=== PATIENT | male | born 1940 | race Caucasian/White ===

== ENCOUNTER 2022-07-28 17:47 | Inpatient (IN) | payer MEDICARE, SELFPAY ==
[2022-07-28 18:03] VITALS: BP 133/68; PULSE 88; RESP 18; TEMP 36.4; O2SAT 97; BMI 24.2
--- NOTE | 2022-07-28 18:35 | XRR_ITS ---
PROCEDURE INFORMATION: Exam: XR Abdomen Exam date and time: 07/28/2022 6:52 PM Age: 82 years old Clinical indication: Prior surgery; Surgery date: 6+ months; Surgery type: Colon , bladder surgery; Patient HX: Stool issues; Impaction TECHNIQUE: Imaging protocol: Radiologic exam of the abdomen. Views: Frontal supine view of the abdomen. 1 View. COMPARISON: CT abdomen pelvis w con* [id number] 10/26/2016 9:34 AM FINDINGS: Gastrointestinal tract: There is minimal stool in the descending colon. No stool is seen in the rectum. There is a gas distended short segment of small bowel in the right lower quadrant associated with bowel sutures. No visibly dilated small bowel is seen elsewhere. Intraperitoneal space: No gross free air. Bones/joints: There is mild degenerative disease in the lumbar spine. XR/XR KUB [id number] IMPRESSION: Minimal stool in the descending colon. None is visible in the rectum.
[2022-07-28 19:50] LABS: Basophils # 0.1 10^3/uL (0.0-0.1); Basophils % 0.5 %; Eosinophils # 0.3 10^3/uL (0.0-0.8); Eosinophils % 1.4 %; Hematocrit 41.2 % (42.0-52.0); Hemoglobin 13.4 g/dL (11.7-16.6); Lymphocytes # 0.3 10^3/uL (0.8-4.8); Lymphocytes % 1.8 %; Mean Corpuscular HGB Conc 32.5 g/dL (30.0-36.0); Mean Corpuscular Hemoglobin 33.1 pg (28.0-34.0); Mean Corpuscular Volume 101.7 fl (80-94); Mean Platelet Volume 9.8 fL (7.4-10.4); Monocytes % 10.2 %; Neutrophils # 16.31 10^3/uL (1.8-7.7); Nucleated Red Blood Cells % 0 %; Platelet Count 233 10^3/cmm (130-400); Red Blood Count 4.05 10^6/uL (4.1-5.3); Red Cell Distribution Width 17.2 % (12.1-15.1); White Blood Count 19.4 10^3/uL (4.0-10.0)
[2022-07-28 20:10] LABS: Alanine Aminotransferase 10 U/L (0-41); Albumin Level 3.5 g/dL (3.5-5.2); Alkaline Phosphatase 155 U/L (40-130); Anion Gap 17.5 (5-19); Aspartate Amino Transferase 23 U/L (0-40); Blood Urea Nitrogen 21 mg/dL (8-23); Calcium 9.2 mg/dL (8.5-10.5); Carbon Dioxide 31 mmol/L (22-29); Chloride 94 mmol/L (98-107); Globulin 3.4 g/dL (1.3-4.6); Glucose 185 mg/dL (65-115); Osmolality Calculated 294 mOsm/kg (285-295); Potassium 4.5 mmol/L (3.5-5.1); Sodium 138 mmol/L (136-145); Total Bilirubin 0.6 mg/dL (0.15-1.2); Total Protein 6.9 g/dL (6.6-8.7)
--- NOTE | 2022-07-28 20:11 | CTR_ITS ---
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 Radiation optimization: All CT scans at this facility use at least one of these dose optimization techniques: automated exposure control; mA and/or kV adjustment per patient size (includes targeted exams where dose is matched to clinical indication); or iterative reconstruction. Contrast material: OMNI 350; Contrast volume: 75 ml; Contrast route: INTRAVENOUS (IV); COMPARISON: CR (ABDOMEN, ) 07/28/2022 6:52 PM RADIATION DOSE METRICS: Total DLP (mGy-cm): 480.99 FINDINGS: Lungs: There is extensive subpleural honeycombing in the lung bases. Liver: The liver is normal. Gallbladder and bile ducts: Cholelithiasis is present. There is no sign of cholecystitis. There is no intrahepatic or extrahepatic bile duct dilation. Pancreas: There is mild atrophy of the pancreas. Spleen: The spleen is unremarkable. Adrenal glands: The adrenal glands are unremarkable. Kidneys and ureters: There is mild atrophy of both kidneys. There are simple cysts in both kidneys. There is no hydronephrosis or stones. Unremarkable right lower quadrant ileal urinary diversion. The ileal loop is nondistended. The ostomy site is unremarkable. Stomach and bowel: There is ill definition and marked thickening of the rectal wall. There is perirectal edema. There is no edema in the perianal fat. There is pancolonic diverticulosis. There is minimal pericolonic edema associated with the distal descending and proximal sigmoid colon. Question diverticular inflammation. No definite thick-walled diverticulum is seen. There is no significant descending colonic wall thickening. The stomach is decompressed, preventing meaningful evaluation of wall thickness. There is focally distended small bowel at an anastomotic site in the right upper quadrant. Small bowel is otherwise normal. No sign of obstruction. Appendix: The appendix is not visible. Intraperitoneal space: There is no free air or significant intraperitoneal free fluid. Vasculature: There is severe aortic atherosclerotic disease. The portal, splenic and superior mesenteric veins are patent. Lymph nodes: There is no lymphadenopathy in the retroperitoneum, mesentery, pelvis or inguinal regions. Urinary bladder: The bladder is absent. Reproductive: Prostate is absent. Bones/joints: Bones are unremarkable. Soft tissues: Unremarkable right lower quadrant ileal urinary diversion. No peristomal hernia. There is a small fat containing left inguinal hernia. CT/CT abdomen pelvis w con* [id number] IMPRESSION: 1. Proctitis. 2. Pancolonic diverticulosis with subtle pericolonic edema in the distal descending and proximal sigmoid colon. Possible mild diverticulitis. No sign of perforation. 3. Fibrotic interstitial lung disease visible in the lung bases is moderately progressive since 10/26/2016. 4. Incidental findings above. COMMENTS: Consistent with the [employer] [place]'s Incidental Findings Committee white paper (J Am Mark Radiol 2018): Any incidental renal lesion less than 1 cm or classified as too small to characterize, or any incidental cystic renal lesion characterized as simple-appearing, is likely benign. No follow-up imaging is recommended for these lesions per consensus recommendations based on imaging criteria.
--- NOTE | 2022-07-28 20:11 | W.ED.NAVMDI ---
Documented by User: RAUL Alexander 07/29/22 01:03 HPI - Nausea/Vomiting/Diarrhea General: Chief complaint: Nausea/Vomiting/Diarrhea Stated complaint: hasn't eaten 6xdays, bowel issues Time Seen by Provider: 07/28/22 19:31 Source: patient and family Mode of arrival: wheelchair Limitations: no limitations History of Present Illness: Patient is an 82-year-old male who presents to ED today along with family for concerns of not eating, weakness, rectal pain/sores, and fecal incontinence. Patient states several days ago he was seen by his primary care provider and diagnosed with constipation. He was placed on a bowel regimen to help alleviate that. They also placed him on antibiotics because my white count was high and gave him a cream for his rectum. He states since then he has been having diarrhea and fecal incontinence. Family states he has not eaten in 6 days. He states he is normally ambulatory and active but has not been over the past two weeks. Patient is undergoing chemotherapy for lymphoma-these are done in [place], [place]. He has a history of bladder cancer. Patient and family are not the best historians when it comes to patient's PMH. Current medications include torsemide, allopurinol, atorvastatin, levothyroxine, spironolactone, clopidogrel, levemir, isosorbide. MD elicited complaint: diarrhea and other (weakness) Onset (ago): day(s) Description of diarrhea: watery Associated nausea: No Associated abdominal pain: Yes Location of pain: Diffuse Pain consistency: constant Severity: mild Relieving factors: none Associated symtoms: Reports fatigue; Denies chest pain, dizziness, headache(s) or nausea Review of Systems Const: Reports: fatigue; Denies: fever(s), chills or body aches Card: Denies: chest pain Resp: Denies: dyspnea GI: Reports: abdominal pain, diarrhea and change in bowel habits; Denies: nausea, vomiting, hematochezia or melena : Denies: flank pain Musc: Denies: neck pain, back pain, extremity pain or joint pain Skin/Breast: Denies: rash Neuro: Reports: other (generalized weakness); Denies: headache(s), lack of coordination, dizziness, confusion or difficulty communicating thoughts PFS ED PFSH: Medical History (Updated 07/29/22 @ 01:03 by RAUL Alexander) History of bladder cancer History of CAD (coronary artery disease) History of CVA (cerebrovascular accident) History of follicular lymphoma History of hyperlipidemia History of hypertension History of type 2 diabetes mellitus Surgical History (Updated 07/29/22 @ 00:23 by Johan Virk MD) History of heart artery stent History of urostomy Family History (Updated 07/29/22 @ 00:23 by Johan Virk MD) Father CAD (coronary artery disease) Mother Medication overdose Social History (Updated 07/29/22 @ 00:24 by Johan Virk MD) Smoking and tobacco status: never smoked Alcohol intake: never Substance/Drug Use: never Physical Exam Const: COMMON NORMALS: no acute distress, average body habitus, patient oriented x3, no limitations, alert and well nourished GENERAL APPEARANCE: cooperative ORIENTATION/CONSCIOUSNESS: Yes awake, Yes oriented to person, Yes oriented to place and Yes oriented to time HENMT: COMMON NORMALS: normocephalic and atraumatic HEAD & SCALP: normal to inspection, normocephalic and atraumatic Resp: COMMON NORMALS: normal respiratory effort and clear to auscultation bilaterally AUSCULTATION: clear to auscultation bilaterally Cardio: COMMON NORMALS: regular rate and regular rhythm RATE: regular rate RHYTHM: regular rhythm GI: COMMON NORMALS: Normal to inspection, nondistended, normoactive bowel sounds present, Soft to palpation, non-tender, No hepatosplenomegaly present and no masses INSPECTION: Yes normal to inspection and Yes other (urostomy pouch looks normal) AUSCULTATION: Yes normoactive bowel sounds PALPATION: Yes Soft to palpation and Yes No hepatosplenomegaly present OTHER: stage II sacral ulcer developing; he has small fissures/raw appearing skin around anus; no fecal leakage : COMMON NORMALS: Yes no CVA tenderness BLADDER/KIDNEY EXAM: Yes no CVA tenderness Back/Pelvis: COMMON NORMALS: no CVA tenderness Extremity: COMMON NORMALS: normal to inspection GENERAL: Yes normal exam except as noted Neuro: ELYSIA COMA SCALE: document GCS findings [place] coma scale eye opening: Spontaneous [place] coma scale verbal response: Orientated [place] coma scale motor response: Obey commands [place] coma scale total score: 15 COMMON NORMALS: patient oriented x3, CN's II-XII intact bilaterally, moves all extremities, no focal motor deficits and no sensory deficits noted SENSORIUM/ORIENTATION: Yes alert, Yes oriented to person, Yes oriented to place and Yes oriented to time Skin: COMMON NORMALS: no rashes or lesions noted GENERAL SKIN EXAM: no rashes or lesions noted Course Consultations: Consultation #1: Dr. Virk-accepts admission Vital Signs: Vital signs: Vital Signs Temperature 97.6 F 07/28/22 18:03 Pulse Rate 100 07/29/22 00:39 Respiratory Rate 12 07/29/22 00:39 Blood Pressure 145/69 07/29/22 00:39 Pulse Oximetry 99 07/29/22 00:39 Oxygen Delivery Me thod 07/29/22 00:39 Oxygen Flow Rate 2 07/29/22 00:39 MDM - Nausea/Vomiting/Diarrhea Medical Decision Making Patient is an 82-year-old male here for complaints of generalized weakness, decreased appetite, and rectal pain/diarrhea. Patient is currently undergoing chemotherapy for follicular lymphoma. CT scan showing proctitis and a small area of possible mild diverticulitis. Patient and family are requesting admission due to weakness. Patient is also complaining of nausea and vomiting and are concerned that he would not be able to hold down oral medications at home. Spoke to Dr. Oneill in regards to patient who agrees with decision to admit. Spoke to Dr. Virk who is graciously willing to admit patient. Lab Data 07/28/22 19:37 07/28/22 19:37 Radiology Impressions KUB X-Ray 07/28/22 18:35 IMPRESSION: Minimal stool in the descending colon. None is visible in the rectum. Abdomen/Pelvis CT 07/28/22 20:11 IMPRESSION: 1. Proctitis. 2. Pancolonic diverticulosis with subtle pericolonic edema in the distal descending and proximal sigmoid colon. Possible mild diverticulitis. No sign of perforation. 3. Fibrotic interstitial lung disease visible in the lung bases is moderately progressive since 10/26/2016. 4. Incidental findings above. COMMENTS: Consistent with the [place] [employer]'s Incidental Findings Committee white paper (J Am Mark Radiol 2018): Any incidental renal lesion less than 1 cm or classified as too small to characterize, or any incidental cystic renal lesion characterized as simple-appearing, is likely benign. No follow-up imaging is recommended for these lesions per consensus recommendations based on imaging criteria. Chest X-Ray 07/28/22 22:58 IMPRESSION: Progressive reticular opacity in the lower lungs since 03/05/2018 suggests chronic interstitial lung disease. No acute pulmonary abnormality. Laboratory Results WBC 19.4 10^3/uL (4.0-10.0) H 07/28/22 19:37 RBC 4.05 10^6/uL (4.1-5.3) L 07/28/22 19:37 Hgb 13.4 g/dL (11.7-16.6) 07/28/22 19:37 Hct 41.2 % (42.0-52.0) L 07/28/22 19:37 MCV 101.7 fl (80-94) H 07/28/22 19:37 MCH 33.1 pg (28.0-34.0) 07/28/22 19:37 MCHC 32.5 g/dL (30.0-36.0) 07/28/22 19:37 RDW 17.2 % (12.1-15.1) H 07/28/22 19:37 Plt Count 233 10^3/cmm (130-400) 07/28/22 19:37 MPV 9.8 fL (7.4-10.4) 07/28/22 19:37 Neut % (Auto) 84.0 % 07/28/22 19:37 Lymph % (Auto) 1.8 % 07/28/22 19:37 [place] % (Auto) 10.2 % 07/28/22 19:37 Eos % (Auto) 1.4 % 07/28/22 19:37 Baso % (Auto) 0.5 % 07/28/22 19:37 Neut # (Auto) 16.31 10^3/uL (1.8-7.7) H 07/28/22 19:37 Lymph # (Auto) 0.3 10^3/uL (0.8-4.8) L 07/28/22 19:37 [place] # (Auto) 2.0 10^3/uL (0.2-0.9) H 07/28/22 19:37 Eos # (Auto) 0.3 10^3/uL (0.0-0.8) 07/28/22 19:37 Baso # (Auto) 0.1 10^3/uL (0.0-0.1) 07/28/22 19:37 Nucleated RBC % (auto) 0 % 07/28/22 19:37 Nucleated RBCs # 0.0 /100WBC 07/28/22 19:37 Sodium 138 mmol/L (136-145) 07/28/22 19:37 Potassium 4.5 mmol/L (3.5-5.1) 07/28/22 19:37 Chloride 94 mmol/L (98-107) L 07/28/22 19:37 Carbon Dioxide 31 mmol/L (22-29) H 07/28/22 19:37 Anion Gap 17.5 (5-19) 07/28/22 19:37 BUN 21 mg/dL (8-23) 07/28/22 19:37 Creatinine 1.4 mg/dL (0.7-1.2) H 07/28/22 19:37 GFR Calculation Not Reportable 07/28/22 19:37 Glucose 185 mg/dL (65-115) H 07/28/22 19:37 Calculated Osmolality 294 mOsm/kg (285-295) 07/28/22 19:37 Lactic Acid 1.5 mmol/L (0.5-2.2) 07/28/22 19:37 Uric Acid 5.6 mg/dL (3.4-7.0) 07/28/22 23:40 Calcium 9.2 mg/dL (8.5-10.5) 07/28/22 19:37 Phosphorus 2.9 mg/dL (2.5-4.5) 07/28/22 23:40 Magnesium 1.7 mg/dL (1.7-2.3) 07/28/22 23:40 Total Bilirubin 0.6 mg/dL (0.15-1.2) 07/28/22 19:37 AST 23 U/L (0-40) 07/28/22 19:37 ALT 10 U/L (0-41) 07/28/22 19:37 Alkaline Phosphatase 155 U/L (40-130) H 07/28/22 19:37 C-Reactive Protein 24.1 mg/L (0.0-4.9) H 07/28/22 23:40 Total Protein 6.9 g/dL (6.6-8.7) 07/28/22 19:37 Albumin 3.5 g/dL (3.5-5.2) 07/28/22 19:37 Globulin 3.4 g/dL (1.3-4.6) 07/28/22 19:37 Procalcitonin 1.41 ng/mL (0-0.5) H 07/28/22 23:40 Free T4 1.50 ng/dL (0.82-1.77) 07/28/22 23:40 Free T3 2.2 PG/ML (2.0-4.4) 07/28/22 23:40 Urine Color Yellow (Yellow) 07/28/22 19:56 Urine Appearance Hazy (CLEAR) A 07/28/22 19:56 Urine pH 9 (5-7) H 07/28/22 19:56 Ur Specific [place] 1.010 (1.005-1.030) 07/28/22 19:56 Urine Protein Neg (Negative) 07/28/22 19:56 Urine Glucose (UA) Norm (Normal) 07/28/22 19:56 Urine Ketones Negative (Negative) 07/28/22 19:56 Urine Blood 2+ (Negative) H 07/28/22 19:56 Urine Nitrate Negative (Negative) 07/28/22 19:56 Urine Bilirubin Neg (Negative) 07/28/22 19:56 Prot Sulfosalicylic Acd Negative (Negative) 07/28/22 19:56 Urine Urobilinogen Neg mg/dL (Negative) 07/28/22 19:56 Ur Leukocyte Esterase Trace (Negative) H 07/28/22 19:56 Urine RBC 5-10 /hpf (0-2) H 07/28/22 19:56 Urine WBC 5-10 /hpf (0-5) H 07/28/22 19:56 Ur Squamous Epith Cells 0-4 /hpf (0-5) H 07/28/22 19:56 Triple Phos Crystals 40-55 /hpf H 07/28/22 19:56 Amorphous Sediment 2+ /hpf 07/28/22 19:56 Urine Bacteria 3+ /hpf (NONE) H 07/28/22 19:56 Urine Mucus Trace /hpf 07/28/22 19:56 Discharge Plan Discharge Patient Disposition: Admitted As Inpatient Admit Provider: Johan Virk Clinical Impression: Proctitis, Weakness, Follicular lymphoma Condition: Stable Coding Level of Care Code ED Velvet Weaver for Chg Fwd Exam Comprehensive Documented by User: Sung Oneill DO 07/29/22 01:57 HPI - Nausea/Vomiting/Diarrhea General: Chief complaint: Nausea/Vomiting/Diarrhea Stated complaint: hasn't eaten 6xdays, bowel issues Time Seen by Provider: 07/28/22 19:31 PFSH ED PFSH: Medical History (Updated 07/29/22 @ 01:03 by RAUL Alexander) History of bladder cancer History of CAD (coronary artery disease) History of CVA (cerebrovascular accident) History of follicular lymphoma History of hyperlipidemia History of hypertension History of type 2 diabetes mellitus Surgical History (Updated 07/29/22 @ 00:23 by Johan Virk MD) History of heart artery stent History of urostomy Family History (Updated 07/29/22 @ 00:23 by Johan Virk MD) Father CAD (coronary artery disease) Mother Medication overdose Social History (Updated 07/29/22 @ 00:24 by Johan Virk MD) Smoking and tobacco status: never smoked Alcohol intake: never Substance/Drug Use: never Physical Exam Neuro: ELYSIA COMA SCALE: document GCS findings [place] coma scale total score: 15 Course Vital Signs: Vital signs: Vital Signs Temperature 97.6 F 07/28/22 18:03 Pulse Rate 100 07/29/22 00:39 Respiratory Rate 12 07/29/22 00:39 Blood Pressure 145/69 07/29/22 00:39 Pulse Oximetry 99 07/29/22 00:39 Oxygen Delivery Me thod 07/29/22 00:39 Oxygen Flow Rate 2 07/29/22 00:39 MDM - Nausea/Vomiting/Diarrhea Medical Decision Making Patient is an 82-year-old male here for complaints of generalized weakness, decreased appetite, and rectal pain/diarrhea. Patient is currently undergoing chemotherapy for follicular lymphoma. CT scan showing proctitis and a small area of possible mild diverticulitis. Patient and family are requesting admission due to weakness. Patient is also complaining of nausea and vomiting and are concerned that he would not be able to hold down oral medications at home. Spoke to Dr. Oneill in regards to patient who agrees with decision to admit. Spoke to Dr. Virk who is graciously willing to admit patient. This patient was originally seen by Mrs. Moe?NATALEE Decker.? I agree with her history, evaluation, and treatment. Lab Data 07/28/22 19:37 07/28/22 19:37 Radiology Impressions KUB X-Ray 07/28/22 18:35 IMPRESSION: Minimal stool in the descending colon. None is visible in the rectum. Abdomen/Pelvis CT 07/28/22 20:11 IMPRESSION: 1. Proctitis. 2. Pancolonic diverticulosis with subtle pericolonic edema in the distal descending and proximal sigmoid colon. Possible mild diverticulitis. No sign of perforation. 3. Fibrotic interstitial lung disease visible in the lung bases is moderately progressive since 10/26/2016. 4. Incidental findings above. COMMENTS: Consistent with the [place] [employer]'s Incidental Findings Committee white paper (J Am Mark Radiol 2018): Any incidental renal lesion less than 1 cm or classified as too small to characterize, or any incidental cystic renal lesion characterized as simple-appearing, is likely benign. No follow-up imaging is recommended for these lesions per consensus recommendations based on imaging criteria. Chest X-Ray 07/28/22 22:58
[2022-07-28 20:21] LABS: Creatinine Clr Calc Pharmacy 36.3864
[2022-07-28 20:23] LABS: Blood Urine 2+ (Negative); Glucose Urine UA Norm (Normal); Ketones Urine Negative (Negative); Protein Urine Neg (Negative); Urine Appearance Hazy (CLEAR); Urine Color Yellow (Yellow); pH Urine 9 (5-7)
[2022-07-28 20:24] LABS: Add Urine Microscopic? YES; Bilirubin Urine Neg (Negative); Leukocyte Esterase Urine Trace (Negative); Nitrate Urine Negative (Negative); Sulfosalicylic Acid Urine Negative (Negative); Urobilinogen Urine Neg (Negative)
[2022-07-28 20:29] LABS: Amorphous Sediment Urine 2+ /hpf; Bacteria Urine 3+ /hpf; Mucus Urine TRACE /hpf; Squamous Epithelial Cell Urine 0-4 /hpf (0-5); Triple Phosphate Crystal Urine 40-55 /hpf
[2022-07-28 20:30] VITALS: BP 140/87; PULSE 98; RESP 14; O2SAT 99
[2022-07-28 20:30] LABS: Add Urine Culture? Yes
[2022-07-28] MEDS: iohexol 350 mg/mL 500 mL Btl (per mL) IV (21:01)
[2022-07-28 21:15] VITALS: BP 145/58; PULSE 113; RESP 14; O2SAT 94
--- NOTE | 2022-07-28 21:16 | ECG_ITS ---
[facility] Test Date: 2022-07-28 Pat Name: Ehsan Garcias Department: Room: Gender: Male Conventions Reservationist: : 1940 Requested By: Elba Moe Order Number: [id number] Gomez MD: Unique Jones M.D. Measurements Intervals [place] Rate: 104 P: 54 AR: 148 QRS: -80 QRSD: 123 T: 47 QT: 410 QTc: 541 Interpretive Statements SINUS TACHYCARDIA WITH OCCASIONAL VENTRICULAR PREMATURE COMPLEXES WITH OCCASIONAL SUPRAVENTRICULAR PREMATURE COMPLEXES RIGHT BUNDLE BRANCH BLOCK [120+ ms QRS DURATION, UPRIGHT V1, 40+ ms S IN I/aVL/V4/V5/V6] LEFT ANTERIOR FASCICULAR BLOCK [QRS AXIS <= -45, QR IN I, RS IN II] Compared to ECG 06/13/2016 12:37:57 Right bundle-branch block now present Left anterior fascicular block now present Sinus bradycardia no longer present Electronically Signed On 07-29-2022 9:11:46 RIVET PASSER by Unique Jones M.D. [id number]
[2022-07-28 22:00] VITALS: BP 149/83; PULSE 110; RESP 14; O2SAT 95
[2022-07-28] MEDS: metroNIDAZOLE IV 500 MG/100 ML PREMIX 100 MG IV (22:13)
[2022-07-28 22:15] LABS: Lactic Sepsis W/Reflex 1.5 mmol/L (0.5-2.2)
[2022-07-28 22:30] VITALS: BP 124/67; PULSE 96; RESP 14; O2SAT 90
[2022-07-28] MEDS: morphine 4 mg/mL SDV 1 mL IVP (22:42)
[2022-07-28] MEDS: ondansetron 2 mg/ML SDV 2 mL 4 MG IVP (22:46)
--- NOTE | 2022-07-28 22:58 | XRR_ITS ---
PROCEDURE INFORMATION: Exam: XR Chest Exam date and time: 07/28/2022 11:41 PM Age: 82 years old Clinical indication: Cough; Additional info: Cough, weakness TECHNIQUE: Imaging protocol: Radiologic exam of the chest. Views: 1 view. COMPARISON: CR XR chest 2V* [id number] 03/05/2018 12:31 PM FINDINGS: Tubes, catheters and devices: There is a right chest port with the line tip appropriately positioned in the lower SVC near the cavoatrial junction. Lungs: Fine reticular opacity in the lower lungs bilaterally is mildly progressive since 03/05/2018. No focal consolidation. Pleural spaces: There is no pleural effusion or pneumothorax. Heart/Mediastinum: Cardiomediastinal contours are unremarkable. Bones/joints: Sternal wires are present. There is no displacement to suggest sternal dehiscence. No acute fracture. Soft tissues: Right axillary surgical clips. XR/XR chest 1V portable [id number] IMPRESSION: Progressive reticular opacity in the lower lungs since 03/05/2018 suggests chronic interstitial lung disease. No acute pulmonary abnormality.
[2022-07-28 23:00] VITALS: BP 123/73; PULSE 101; RESP 14; O2SAT 91
[2022-07-28] MEDS: ciprofloxacin 400 MG/200 ML PREMIX 200 MG IV (23:29)
[2022-07-29] VITALS (12 sets, daily range): BP systolic 119–154; BP diastolic 63–75; PULSE 64–100; RESP 12–22; TEMP 36.5–37; O2SAT 88–99
[2022-07-29 00:12] LABS: C Reactive Protein 24.1 mg/L (0.0-4.9)
--- NOTE | 2022-07-29 00:15 | PM.HP ---
Providers/Chief Complaint Primary Care Provider: Shante Montoya Chief Complaint: hasn't eaten 6xdays, bowel issues History of Present Illness Ehsan Garcias is a 82 year old male with a past medical history of follicular lymphoma, on cycle 3 of chemotherapy, last taken July 20 in [facility], history of CAD status post stenting on Plavix, history of type 2 diabetes mellitus on insulin Levemir, hypertension, hyperlipidemia, history of bladder cancer status post urostomy, history of nephrolithiasis, GERD, history of TIA who presents to [facility] due to weakness, fatigue, poor appetite, diarrhea. Patient tells me that since his chemotherapy on the , he has been feeling weak fatigued and tired he has not had an appetite over 6 days, his has not eaten much, does have nausea, no vomiting. His symptoms started off as constipation, he saw his primary care and they put him on a bowel regimen, and amoxicillin for irritation around the rectum. They felt that he was constipated, he had impaction, he tells me that since then he has had significant diarrhea even though he is stopped all laxatives. He has profuse watery diarrhea, no bloody or black stools, he is normally ambulates in a walker, for the last 2 days has not been able to ambulate due to generalized weakness. Review of Systems Const: Denies: fever(s) or chills Eyes: Denies: change in vision ENMT: Denies: nasal congestion Card: Denies: chest pain Resp: Denies: dyspnea, productive cough, non-productive cough or wheezing GI: Denies: hematemesis, hematochezia or melena : Denies: flank pain Musc: Denies: neck pain or back pain Skin/Breast: Denies: rash Neuro: Denies: headache(s) or dizziness PFSH Acute PFSH: Medical History (Updated 07/29/22 @ 00:26 by Johan Virk MD) History of bladder cancer History of CAD (coronary artery disease) History of CVA (cerebrovascular accident) History of follicular lymphoma History of hyperlipidemia History of hypertension History of type 2 diabetes mellitus Surgical History (Updated 07/29/22 @ 00:23 by Johan Virk MD) History of heart artery stent History of urostomy Family History (Updated 07/29/22 @ 00:23 by Johan Virk MD) Father CAD (coronary artery disease) Mother Medication overdose Social History (Updated 07/29/22 @ 00:24 by Johan Virk MD) Smoking and tobacco status: never smoked Alcohol intake: never Substance/Drug Use: never Vitals/I&O/Wt Last Vital Signs Temp 97.6 F 07/28/22 18:03 Pulse 98 07/29/22 00:00 Resp 14 07/29/22 00:00 BP 119/64 07/29/22 00:00 Pulse Ox 91 07/29/22 00:00 07/28/22 07/28/22 07/29/22 14:59 22:59 06:59 Intake Total 100 / 100 Balance 100 / 100 Weight last 48 hrs Weight 68.039 kg Physical Exam Const: COMMON NORMALS: no acute distress and patient oriented x3 HENMT: COMMON NORMALS: normocephalic HEAD & SCALP: normocephalic Eye: COMMON NORMALS: Equal, round and reactive pupils present and EOMs intact bilaterally Neck/C-Spine: COMMON NORMALS: full ROM and no lymphadenopathy Lymph: LYMPHATIC: no lymphadenopathy noted Resp: COMMON NORMALS: normal respiratory effort, No retractions, No use of accessory muscles and clear to auscultation bilaterally AUSCULTATION: clear to auscultation bilaterally Cardio: COMMON NORMALS: regular rate, regular rhythm, S1 normal heart sound present and S2 normal heart sound present RATE: regular rate RHYTHM: regular rhythm HEART SOUNDS: S1 normal heart sound present and S2 normal heart sound present GI: COMMON NORMALS: Normal to inspection, nondistended, normoactive bowel sounds present, Soft to palpation, non-tender, no masses and no bruits OTHER: Urostomy in place Extremity: COMMON NORMALS: no pedal edema Neuro: COMMON NORMALS: patient oriented x3, CN's II-XII intact bilaterally, moves all extremities and no focal motor deficits Psych: COMMON NORMALS: mental status grossly normal Data 07/28/22 19:37 07/28/22 19:37 Micro: Microbiology 07/28/22 23:40 Blood Culture - Preliminary Blood SPECIMEN COLLECTED 07/28/22 23:43 Blood Culture - Preliminary Blood SPECIMEN COLLECTED A&P Assessment and plan (1) Protein calorie malnutrition: (2) Physical deconditioning: (3) Goals of care, counseling/discussion: (4) Proctitis: (5) FREEMAN (acute kidney injury): (6) Dehydration: (7) Chemotherapy induced diarrhea: (8) History of follicular lymphoma: (9) History of hyperlipidemia: (10) History of hypertension: (11) History of bladder cancer: (12) History of type 2 diabetes mellitus: (13) History of CAD (coronary artery disease): (14) Diverticulitis: (15) Colitis: Plan Diarrhea -CT scan showing evidence of proctitis, -Also pericolonic edema with colitis -Also evidence of possible diverticulitis -Is on chemotherapy Plan -Started on Cipro and Flagyl -IV fluids -Magnesium and phosphorus monitor other electrolytes -Could be chemotherapy-induced diarrhea we will consider antidiarrheal medications -The other, concern is infectious diarrhea especially is on chemotherapy C. difficile, CMV, Entamoeba -We will monitor stool studies -Monitor clinical status -DNR/DNI -Lovenox for DVT prophylaxis Protein calorie malnutrition, has not had an appetite and 6 days, start Remeron 7.5 mg at bedtime to stimulate appetite IV fluids Complaints of dysphagia, placed on clear liquid diet, will have speech therapy see patient, advance diet as tolerated, protein shakes twice daily FREEMAN, dehydration IV fluids CAD continue Plavix History of follicular lymphoma, will obtain records from [place] History of urostomy, history of bladder removal, for transitional bladder cell carcinoma Protein calorie malnutrition, deconditioning Hypothyroidism check TSH, free T3, free T4, patient is not sure his levothyroxine dose well to call pharmacy in a.m. Goals of care discussion, patient wants to be DNR/DNI Attestations Medical Necessity Statement*: Patient requires hospitalization, inpatient, greater than 2 midnights, for colitis, proctitis, diverticulitis, dehydration, chemotherapy-induced diarrhea, leukocytosis, dehydration, FREEMAN Coding Level of Care Code Acute Code for Chg Fwd Diagnoses Protein calorie malnutrition E46 Physical deconditioning R53.81 Goals of care, counseling/discussion Z71.89 Proctitis K62.89 FREEMAN (acute kidney injury) N17.9 Dehydration E86.0 Chemotherapy induced diarrhea K52.1; T45.1X5A History of follicular lymphoma Z85.72 History of hyperlipidemia Z86.39 History of hypertension Z86.79 History of bladder cancer Z85.51 History of type 2 diabetes mellitus Z86.39 History of CAD (coronary artery disease) Z86.79 Diverticulitis K57.92 Colitis K52.9
[2022-07-29 00:18] LABS: Procalcitonin 1.41 ng/mL (0-0.5)
--- NOTE | 2022-07-29 00:25 | PC.NURSE ---
Pt saturation continually dropping to 88, placed pt on 2L NC, O2 up to 97
[2022-07-29 01:07] LABS: Magnesium 1.7 mg/dL (1.7-2.3); Phosphorus 2.9 mg/dL (2.5-4.5); T3 Free 2.2 PG/ML (2.0-4.4); Uric Acid 5.6 mg/dL (3.4-7.0)
[2022-07-29 02:55] LABS: Thyroid Stimulating Hormone 2.35 uIU/mL (0.27-4.20)
[2022-07-29] MEDS: mirtazapine 15 mg Tablet 7.5 MG PO (03:08)
[2022-07-29] MEDS: enoxaparin 40 mg/0.4 mL Syringe SUBCUT (03:09)
[2022-07-29] MEDS: pantoprazole 40 mg SDV IVP (03:09)
[2022-07-29] MEDS: dextrose 5%-sod chloride 0.9% 1,000 ML 125 ML IV ×3 (03:12→21:04)
[2022-07-29] MEDS: metroNIDAZOLE IV 500 MG/100 ML PREMIX 100 MG IV ×3 (05:21→22:44)
[2022-07-29 06:47] LABS: Glucose Point of Care 159 mg/dL (70-110)
--- NOTE | 2022-07-29 06:47 | PC.NURSE ---
Medication list from [facility] from 05/30/22 with patient as well as 9 medication bottles and an insulin pen. These were placed in the Pyxis. List does not match the medications patient has with him. Medications have been listed as unconfirmed on med rec. Patient states that his daughter will know which medications he is on. Attempt to call daughter Talisha who did not answer. Home medications will need to be confirmed.
[2022-07-29] MEDS: cholecalciferol (vitamin D3) 1,000 unit Tablet 1000 UNIT PO (08:50)
[2022-07-29] MEDS: aspirin 81 mg EC Tablet 162 MG PO (08:50)
[2022-07-29] MEDS: metoprolol succinate ER (24 HR) 50 mg Tablet PO (08:50)
[2022-07-29] MEDS: folic acid 1 mg Tablet PO (08:50)
[2022-07-29] MEDS: clopidogrel 75 mg Tablet PO (08:50)
[2022-07-29] MEDS: allopurinol 100 mg Tablet PO (08:50)
[2022-07-29] MEDS: cyanocobalamin 1,000 mcg Tablet 500 MCG PO (08:51)
[2022-07-29] MEDS: insulin lispro 100 unit/1 mL SUBCUT ×2 (08:52→17:54)
[2022-07-29 12:07] LABS: Glucose Point of Care 138 mg/dL (70-110)
[2022-07-29] MEDS: ondansetron 2 mg/ML SDV 2 mL 4 MG IVP (13:09)
--- NOTE | 2022-07-29 15:35 | P.PN_ITS ---
Subjective Subjective: Today he is feeling slightly better. Denies abdominal pain. Still having diarrhea. Just gave a stool sample. No vomiting. Vitals/I&O/Wt Last Vital Signs Temp 97.7 F 07/29/22 12:00 Pulse 64 07/29/22 12:00 Resp 18 07/29/22 12:00 BP 138/68 07/29/22 12:00 Pulse Ox 95 07/29/22 12:00 O2 Del Method 07/29/22 12:00 O2 Flow Rate 2 07/29/22 00:39 07/29/22 07/29/22 07/29/22 06:59 14:59 22:59 Intake Total 640 / 640 1340 / 1340 Output Total 350 / 350 400 / 400 Balance 290 / 290 940 / 940 Weight last 48 hrs Weight 68.039 kg Physical Exam Const: COMMON NORMALS: patient oriented x3 and alert GENERAL APPEARANCE: cooperative ORIENTATION/CONSCIOUSNESS: Yes awake HENMT: COMMON NORMALS: oropharynx normal Neck/C-Spine: COMMON NORMALS: no JVD Resp: COMMON NORMALS: normal respiratory effort and clear to auscultation bilaterally AUSCULTATION: clear to auscultation bilaterally Cardio: COMMON NORMALS: no JVD, regular rhythm, S1 normal heart sound present, S2 normal heart sound present and No murmurs present (Cardio) RHYTHM: regular rhythm HEART SOUNDS: S1 normal heart sound present and S2 normal heart sound present GI: COMMON NORMALS: Normal to inspection, nondistended, normoactive bowel sounds present, Soft to palpation and non-tender PALPATION: Yes Soft to palpation Extremity: COMMON NORMALS: no joint enlargement and no pedal edema Neuro: COMMON NORMALS: patient oriented x3 and moves all extremities SENSORIUM/ORIENTATION: Yes alert Skin: COMMON NORMALS: no rashes or lesions noted GENERAL SKIN EXAM: no rashes or lesions noted Data 07/28/22 19:37 07/28/22 19:37 Micro: Microbiology 07/29/22 12:30 Stool Lactoferrin - Final Stool Occult Blood (FIT) - Final 07/28/22 23:40 Blood Culture - Preliminary Blood SPECIMEN COLLECTED 07/28/22 23:43 Blood Culture - Preliminary Blood SPECIMEN COLLECTED A&P Assessment and plan (1) Colitis: Proctocolitis with possible diverticulitis. Just gave stool sample. Lactoferrin positive. Hemoccult positive. Follow-up micro studies including C. difficile. Could also be chemotherapy related. For now continue empiric antibiotic coverage with ciprofloxacin and Flagyl. Continue IV hydration for now. For now stay with CLD. (2) Proctitis: (3) Diverticulitis: (4) Protein calorie malnutrition: (5) Physical deconditioning: (6) Goals of care, counseling/discussion: (7) FREEMAN (acute kidney injury): (8) Dehydration: (9) Chemotherapy induced diarrhea: (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: (11) History of hyperlipidemia: (12) History of hypertension: (13) History of bladder cancer: (14) History of type 2 diabetes mellitus: (15) History of CAD (coronary artery disease): Plan Protein calorie malnutrition, has not had an appetite and 6 days, started on Remeron 7.5 mg at bedtime Complaints of dysphagia, placed on clear liquid diet, will have speech therapy see patient, advance diet as tolerated, protein shakes twice daily FREEMAN, dehydration IV fluids. Repeat chemistries to follow-up renal function. No hydronephrosis on CT. Mild atrophy of both kidneys noted on imaging. CAD continue Plavix History of follicular lymphoma, will obtain records from [place] History of urostomy, history of bladder removal, for transitional bladder cell carcinoma Protein calorie malnutrition, deconditioning. Add protein shakes once advancing diet. PT and OT requested. CM follow-up for disposition planning. Hypothyroidism: Normal TSH, free T3, free T4 DNR/DNI Attestations Medical Necessity Statement*: Continue admission for assessment of management of proctocolitis, empiric antibiotic coverage pending stool studies, IV fluid for dehydration, and gentleman with immunocompromise with follicular lymphoma, chemotherapy. Coding Level of Care Code Acute Code for [facility] Fwd Diagnoses Colitis K52.9 Proctitis K62.89 Diverticulitis K57.92 Protein calorie malnutrition E46 Physical deconditioning R53.81 Goals of care, counseling/discussion Z71.89 FREEMAN (acute kidney injury) N17.9 Dehydration E86.0 Chemotherapy induced diarrhea K52.1; T45.1X5A History of follicular lymphoma Z85.72 History of hyperlipidemia Z86.39 History of hypertension Z86.79 History of bladder cancer Z85.51 History of type 2 diabetes mellitus Z86.39 History of CAD (coronary artery disease) Z86.79
[2022-07-29 17:04] LABS: Glucose Point of Care 206 mg/dL (70-110)
[2022-07-29] MEDS: acetaminophen 325 mg Tablet 650 MG PO (17:59)
[2022-07-29] MEDS: atorvastatin 40 mg Tablet 80 MG PO (21:01)
[2022-07-29 21:05] LABS: Glucose Point of Care 95 mg/dL (70-110)
[2022-07-29] MEDS: morphine 4 mg/mL SDV 1 mL 1 MG IVP (23:17)
[2022-07-30] VITALS (9 sets, daily range): BP systolic 114–160; BP diastolic 58–73; PULSE 65–89; RESP 16–18; TEMP 36.7–37.2; O2SAT 94–100
[2022-07-30] MEDS: mirtazapine 15 mg Tablet 7.5 MG PO (01:10)
[2022-07-30] MEDS: enoxaparin 40 mg/0.4 mL Syringe SUBCUT (01:10)
[2022-07-30] MEDS: pantoprazole 40 mg SDV IVP (02:05)
[2022-07-30] MEDS: metroNIDAZOLE IV 500 MG/100 ML PREMIX 100 MG IV ×3 (05:23→21:01)
[2022-07-30] MEDS: dextrose 5%-sod chloride 0.9% 1,000 ML 125 ML IV ×2 (05:29→20:55)
[2022-07-30 05:51] LABS: Basophils # 0.1 10^3/uL (0.0-0.1); Basophils % 0.5 %; Eosinophils # 0.4 10^3/uL (0.0-0.8); Eosinophils % 4.2 %; Hematocrit 36.2 % (42.0-52.0); Hemoglobin 11.4 g/dL (11.7-16.6); Lymphocytes # 0.3 10^3/uL (0.8-4.8); Lymphocytes % 2.8 %; Mean Corpuscular HGB Conc 31.5 g/dL (30.0-36.0); Mean Corpuscular Hemoglobin 32.9 pg (28.0-34.0); Mean Corpuscular Volume 104.3 fl (80-94); Mean Platelet Volume 10.3 fL (7.4-10.4); Monocytes # 0.7 10^3/uL (0.2-0.9); Monocytes % 7.2 %; Neutrophils # 8.34 10^3/uL (1.8-7.7); Neutrophils % 84.2 %; Nucleated Red Blood Cells % 0 %; Platelet Count 176 10^3/cmm (130-400); Red Blood Count 3.47 10^6/uL (4.1-5.3); Red Cell Distribution Width 17.1 % (12.1-15.1); White Blood Count 9.9 10^3/uL (4.0-10.0)
[2022-07-30 06:08] LABS: Anion Gap 11.6 (5-19); Blood Urea Nitrogen 14 mg/dL (8-23); Calcium 7.7 mg/dL (8.5-10.5); Carbon Dioxide 25 mmol/L (22-29); Chloride 106 mmol/L (98-107); Glucose 204 mg/dL (65-115); Magnesium 1.6 mg/dL (1.7-2.3); Osmolality Calculated 294 mOsm/kg (285-295); Phosphorus 2.5 mg/dL (2.5-4.5); Potassium 3.6 mmol/L (3.5-5.1); Sodium 139 mmol/L (136-145)
[2022-07-30 06:48] LABS: Glucose Point of Care 186 mg/dL (70-110)
[2022-07-30] MEDS: cyanocobalamin 1,000 mcg Tablet 500 MCG PO (08:24)
[2022-07-30] MEDS: allopurinol 100 mg Tablet PO (08:25)
[2022-07-30] MEDS: isosorbide mononitrate ER 60 mg Tablet PO (08:25)
[2022-07-30] MEDS: cholecalciferol (vitamin D3) 1,000 unit Tablet 1000 UNIT PO (08:25)
[2022-07-30] MEDS: folic acid 1 mg Tablet PO (08:25)
[2022-07-30] MEDS: aspirin 81 mg EC Tablet 162 MG PO (08:25)
[2022-07-30] MEDS: clopidogrel 75 mg Tablet PO (08:26)
[2022-07-30] MEDS: metoprolol succinate ER (24 HR) 50 mg Tablet PO (08:26)
[2022-07-30] MEDS: insulin lispro 100 unit/1 mL SUBCUT ×3 (08:27→17:27)
[2022-07-30] MEDS: levothyroxine 25 mcg Tablet PO (09:27)
[2022-07-30] MEDS: acetaminophen 325 mg Tablet 650 MG PO (09:31)
--- NOTE | 2022-07-30 09:59 | P.DS_ITS ---
Discharge Providers Date of Admission: 07/29/22 00:05 Date of Discharge: July 30, 2022 Attending Provider at Admission: Johan Virk MD Attending Provider at Discharge: Johan Virk MD Primary Care Provider: Shante Montoya Diagnoses at Discharge Discharge Diagnosis (1) Colitis: Status: Acute (2) Proctitis: Status: Acute (3) Diverticulitis: Status: Acute (4) Protein calorie malnutrition: Status: Acute (5) Physical deconditioning: Status: Acute (6) Goals of care, counseling/discussion: Status: Acute (7) FREEMAN (acute kidney injury): Status: Acute (8) Dehydration: Status: Acute (9) Chemotherapy induced diarrhea: Status: Acute (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: Status: Acute (11) History of hyperlipidemia: Status: Acute (12) History of hypertension: Status: Acute (13) History of bladder cancer: Status: Acute (14) History of type 2 diabetes mellitus: Status: Acute (15) History of CAD (coronary artery disease): Status: Acute Reason for Visit Reason for Visit: hasn't eaten 6xdays, bowel issues Hospital Course Hospital Course Ehsan Garcias is a 82 year old male with a past medical history of follicular lymphoma, on cycle 3 of chemotherapy, last taken July 20 in [facility], history of CAD status post stenting on Plavix, history of type 2 diabetes mellitus on insulin Levemir, hypertension, hyperlipidemia, history of bladder cancer status post urostomy, history of nephrolithiasis, GERD, history of TIA who presents to [facility] due to weakness, fatigue, poor appetite, diarrhea.? Patient tells me that since his chemotherapy on the , he has been feeling weak fatigued and tired he has not had an appetite over 6 da ys, his has not eaten much, does have nausea, no vomiting.? His symptoms started off as constipation, he saw his primary care and they put him on a bowel regimen, and amoxicillin for irritation around the rectum.? They felt that he was constipated, he had impaction, he tells me that since then he has had significant diarrhea even though he is stopped all laxatives.? He has profuse watery diarrhea, no bloody or black stools, he is normally ambulates in a walker, for the last 2 days has not been able to ambulate due to generalized weakness. Patient was admitted to [facility] for diarrhea -CT scan showing evidence of proctitis, -Also pericolonic edema with colitis -Also evidence of possible diverticulitis -Is on chemotherapy -Stool studies so far unremarkable C. difficile negative although FOBT was positive -Stool cultures so far are pending, CMV pending -Managed with broad-spectrum antibiotic therapy overall diarrhea resolved -Discharged on 5 days of Cipro and Flagyl -Have patient follow-up with oncologist at [facility] -If any recurrent diarrhea, nausea, go to the emergency room For his generalized weakness persisted to some degree, on chemotherapy, continue to monitor FREEMAN secondary dehydration, received IV fluids, overall clinically improved Physical Exam Const: COMMON NORMALS: no acute distress and patient oriented x3 Resp: COMMON NORMALS: normal respiratory effort, No retractions, No use of accessory muscles and clear to auscultation bilaterally AUSCULTATION: clear to auscultation bilaterally Cardio: COMMON NORMALS: regular rate, regular rhythm, S1 normal heart sound present and S2 normal heart sound present RATE: regular rate RHYTHM: regul ar rhythm HEART SOUNDS: S1 normal heart sound present and S2 normal heart sound present GI: COMMON NORMALS: Normal to inspection, nondistended, normoactive bowel sounds present and non-tender Extremity: COMMON NORMALS: no pedal edema Neuro: COMMON NORMALS: patient oriented x3 Psych: COMMON NORMALS: mental status grossly normal Discharge Data Studies Completed and Pending Completed Studies During Hospitalization Category Date Time Status CT abdomen pelvis w con* [id number] Stat Cat Scan 07/28/22 20:11 Completed XR KUB [id number] Stat Exams 07/28/22 18:35 Completed XR chest 1V portable [id number] Stat Exams 07/28/22 22:58 Completed Pending at discharge Category Date Time Status Blood Culture Stat Lab 07/28/22 23:40 Results CMV IGG&IGM Panel Stat Lab 07/29/22 00:11 Received Clostridioides Difficile PCR Routine Lab 07/29/22 12:30 Results Enteric Bacterial Panel by PCR Routine Lab 07/29/22 12:30 Results Enteric Parasite Panel by PCR Routine Lab 07/29/22 12:30 Results Immunochemical Fecal OCB Routine Lab 07/29/22 12:30 Results Lactoferrin Routine Lab 07/29/22 12:30 Results Magnesium AM LABS Lab 07/31/22 04:00 Ordered Urine Culture Stat Lab 07/28/22 19:56 Results Radiology Impressions KUB X-Ray 07/28/22 18:35 IMPRESSION: Minimal stool in the descending colon. None is visible in the rectum. Abdomen/Pelvis CT 07/28/22 20:11 IMPRESSION: 1. Proctitis. 2. Pancolonic diverticulosis with subtle pericolonic edema in the distal descending and proximal sigmoid colon. Possible mild diverticulitis. No sign of perforation. 3. Fibrotic interstitial lung disease visible in the lung bases is moderately progressive since 10/26/2016. 4. Incidental findings above. COMMENTS: Consistent with the [employer]'s Incidental Findings Committee white paper (J Am Mark Radiol 2018): Any incidental renal lesion less than 1 cm or classified as too small to characterize, or any incidental cystic renal lesion characterized as simple-appearing, is likely benign. No follow-up imaging is recommended for these lesions per consensus recommendations based on imaging criteria. Chest X-Ray 07/28/22 22:58 IMPRESSION: Progressive reticular opacity in the lower lungs since 03/05/2018 suggests chronic interstitial lung disease. No acute pulmonary abnormality. Laboratory Results WBC 9.9 10^3/uL (4.0-10.0) 07/30/22 05:03 RBC 3.47 10^6/uL (4.1-5.3) L 07/30/22 05:03 Hgb 11.4 g/dL (11.7-16.6) L 07/30/22 05:03 Hct 36.2 % (42.0-52.0) L 07/30/22 05:03 MCV 104.3 fl (80-94) H 07/30/22 05:03 MCH 32.9 pg (28.0-34.0) 07/30/22 05:03 MCHC 31.5 g/dL (30.0-36.0) 07/30/22 05:03 RDW 17.1 % (12.1-15.1) H 07/30/22 05:03 Plt Count 176 10^3/cmm (130-400) 07/30/22 05:03 MPV 10.3 fL (7.4-10.4) 07/30/22 05:03 Neut % (Auto) 84.2 % 07/30/22 05:03 Lymph % (Auto) 2.8 % 07/30/22 05:03 Navarro % (Auto) 7.2 % 07/30/22 05:03 Eos % (Auto) 4.2 % 07/30/22 05:03 Baso % (Auto) 0.5 % 07/30/22 05:03 Neut # (Auto) 8.34 10^3/uL (1.8-7.7) H 07/30/22 05:03 Lymph # (Auto) 0.3 10^3/uL (0.8-4.8) L 07/30/22 05:03 Navarro # (Auto) 0.7 10^3/uL (0.2-0.9) 07/30/22 05:03 Eos # (Auto) 0.4 10^3/uL (0.0-0.8) 07/30/22 05:03 Baso # (Auto) 0.1 10^3/uL (0.0-0.1) 07/30/22 05:03 Nucleated RBC % (auto) 0 % 07/30/22 05:03 Nucleated RBCs # 0.0 /100WBC 07/30/22 05:03 Sodium 139 mmol/L (136-145) 07/30/22 05:03 Potassium 3.6 mmol/L (3.5-5.1) 07/30/22 05:03 Chloride 106 mmol/L (98-107) 07/30/22 05:03 Carbon Dioxide 25 mmol/L (22-29) 07/30/22 05:03 Anion Gap 11.6 (5-19) 07/30/22 05:03 BUN 14 mg/dL (8-23) 07/30/22 05:03 Creatinine 1.2 mg/dL (0.7-1.2) 07/30/22 05:03 GFR Calculation Not Reportable 07/30/22 05:03 Glucose 204 mg/dL (65-115) H 07/30/22 05:03 POC Glucose 186 mg/dL (70-110) H 07/30/22 06:28 Calculated Osmolality 294 mOsm/kg (285-295) 07/30/22 05:03 Lactic Acid 1.5 mmol/L (0.5-2.2) 07/28/22 19:37 Uric Acid 5.6 mg/dL (3.4-7.0) 07/28/22 23:40 Calcium 7.7 mg/dL (8.5-10.5) L 07/30/22 05:03 Phosphorus 2.5 mg/dL (2.5-4.5) 07/30/22 05:03 Magnesium 1.6 mg/dL (1.7-2.3) L 07/30/22 05:03 Total Bilirubin 0.6 mg/dL (0.15-1.2) 07/28/22 19:37 AST 23 U/L (0-40) 07/28/22 19:37 ALT 10 U/L (0-41) 07/28/22 19:37 Alkaline Phosphatase 155 U/L (40-130) H 07/28/22 19:37 C-Reactive Protein 24.1 mg/L (0.0-4.9) H 07/28/22 23:40 Total Protein 6.9 g/dL (6.6-8.7) 07/28/22 19:37 Albumin 3.5 g/dL (3.5-5.2) 07/28/22 19:37 Globulin 3.4 g/dL (1.3-4.6) 07/28/22 19:37 Procalcitonin 1.41 ng/mL (0-0.5) H 07/28/22 23:40 TSH 2.35 uIU/mL (0.27-4.20) 07/28/22 23:40 Free T4 1.50 ng/dL (0.82-1.77) 07/28/22 23:40 Free T3 2.2 PG/ML (2.0-4.4) 07/28/22 23:40 Urine Color Yellow (Yellow) 07/28/22 19:56 Urine Appearance Hazy (CLEAR) A 07/28/22 19:56 Urine pH 9 (5-7) H 07/28/22 19:56 Ur Specific [place] 1.010 (1.005-1.030) 07/28/22 19:56 Urine Protein Neg (Negative) 07/28/22 19:56 Urine Glucose (UA) Norm (Normal) 07/28/22 19:56 Urine Ketones Negative (Negative) 07/28/22 19:56 Urine Blood 2+ (Negative) H 07/28/22 19:56 Urine Nitrate Negative (Negative) 07/28/22 19:56 Urine Bilirubin Neg (Negative) 07/28/22 19:56 Prot Sulfosalicylic Acd Negative (Negative) 07/28/22 19:56 Urine Urobilinogen Neg mg/dL (Negative) 07/28/22 19:56 Ur Leukocyte Esterase Trace (Negative) H 07/28/22 19:56 Urine RBC 5-10 /hpf (0-2) H 07/28/22 19:56 Urine WBC 5-10 /hpf (0-5) H 07/28/22 19:56 Ur Squamous Epith Cells 0-4 /hpf (0-5) H 07/28/22 19:56 Triple Phos Crystals 40-55 /hpf H 07/28/22 19:56 Amorphous Sediment 2+ /hpf 07/28/22 19:56 Urine Bacteria 3+ /hpf (NONE) H 07/28/22 19:56 Urine Mucus Trace /hpf 07/28/22 19:56 Vitals Last Vital Signs Temp 98.5 F 07/30/22 07:04 Pulse 71 07/30/22 07:04 Resp 18 07/30/22 07:04 BP 160/68 07/30/22 07:04 Pulse Ox 95 07/30/22 07:04 O2 Del Method 07/30/22 07:04 O2 Flow Rate 2 07/30/22 08:00 Discharge Plan Discharge Patient Disposition: Home Condition: Stable Prescriptions: New cyanocobalamin (vitamin B-12) [Vitamin B-12] 1,000 mcg Tablet 500 mcg PO DAILY 30 Days Qty: 30 0RF mirtazapine 15 mg Tablet 7.5 mg PO Q24H 30 Days Qty: 15 0RF ciprofloxacin HCl [Cipro] 500 mg tablet 500 mg PO BID 5 Days Qty: 10 0RF atorvastatin 40 mg Tablet 40 mg PO BEDTIME 30 Days Qty: 30 0RF folic acid 1 mg Tablet 1 mg PO DAILY 30 Days Qty: 30 0RF metronidazole 500 mg tablet 500 mg PO BID 5 Days Qty: 10 0RF Continued atorvastatin 40 mg Tablet 40 mg PO DAILY metoprolol succinate 50 mg Tablet Extended Release 24 Hr 50 mg PO DAILY clopidogrel [Plavix] 75 mg Tablet 75 mg PO DAILY allopurinol 100 mg Tablet 100 mg PO DAILY spironolactone 25 mg Tablet 12.5 mg PO DAILY levothyroxine 25 mcg Tablet 25 mcg PO DAILY isosorbide mononitrate 60 mg Tablet Extended Release 24 Hr 60 mg PO DAILY folic acid 1 mg Tablet 1 mg PO DAILY Held torsemide 20 mg Tablet 20 mg PO DAILY Hold Instructions: Resume on 08/06/22. Discontinued amoxicillin 500 mg Tablet 500 mg PO BID Rx Instructions: for 7 days; started 07/25/22 glimepiride 4 mg Tablet 4 mg PO BID isosorbide-hydralazine 20-37.5 mg Tablet 0.5 tab PO BID Discharge Orders: Discharge Order (Routine); Ordered 07/30/22 Ordered By: Johan Virk Referrals: Shante Montoya [Primary Care Provider] - Discharge Diet: Cardiac Discharge Activity: Resume usual activity Patient Instructions: Opioid Safety Activity Restrictions/Additional Instructions: - Take antibiotics as prescribed -Follow-up with oncologist at [facility] -I have stopped her glimepiride due to high risk of hypoglycemia, your blood sugars have been reasonable here -Hydrate well, drink plenty of electrolyte balance fluids Discharge Attestations Time Spent in Discharge Care*: less than 30 min Quality Metrics Clinical Quality Measures [ No reported AMI, CVA or VTE this stay] Coding Level of Care Code Acute Chg FW DC note Diagnoses Colitis K52.9 Proctitis K62.89 Diverticulitis K57.92 Protein calorie malnutrition E46 Physical deconditioning R53.81 Goals of care, counseling/discussion Z71.89 FREEMAN (acute kidney injury) N17.9 Dehydration E86.0 Chemotherapy induced diarrhea K52.1; T45.1X5A History of follicular lymphoma Z85.72 History of hyperlipidemia Z86.39 History of hypertension Z86.79 History of bladder cancer Z85.51 History of type 2 diabetes mellitus Z86.39 History of CAD (coronary artery disease) Z86.79
[2022-07-30] MEDS: ciprofloxacin 400 MG/200 ML PREMIX 200 MG IV ×2 (10:54→22:25)
--- NOTE | 2022-07-30 11:59 | PC.CHAP ---
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 visit [] Patient/Family/Request visit [] Outpatient visit [] Follow-up visit [] Physician referral [] Code/Alert []x Routine visit [] Staff referral [] Actively dying [] Patient sleeping [] Family support [] [] Out of room [] Palliative care [] [] Receiving care in room [] Pre-surgical visit [] Trauma [] Long length of stay [] ICU visit [] Other: Relational/Emotional Strength [] Patient feels connected with others/family/visitors/staff [] Distress [] Loneliness/isolation [] Abandonment Spirituality of Patient [x] Person of Mattie [x] Attends Scientologist of their Mattie [x] Believes in Prayer []x Reads Bible or Caodaism materials [] There are Spiritual issues to be addressed Share Holder Interventions [x] Prayer [x] Active listening [x] Non-anxious presence [] Spiritual/emotional support [] Crisis/trauma care [] Spiritual counseling [] Bereavement support [] Provided bereavement packet [] Provided Bible/devotional materials [] Provided toy/stuffed animal, coloring book to patient or family member [] Provided Communion [] Anointing/Benge [] Salvation [x] Completed spiritual assessment [] Other: Impact on Illness or Injury [] Angry [] Fearful [] Anxious [] Often cries [] Exhaustion [] Unable to work [] Unable to attend amish [] Unable to walk/stand [] Unable to read [] Unable to drive [] Unable to eat/drink [] Unable to sleep [] Unable to be with family [] Patient intubated [] Other: Summary Time spent with patient 10 min
[2022-07-30 12:03] LABS: Glucose Point of Care 170 mg/dL (70-110)
[2022-07-30 16:00] LABS: Cytomegalovirus Antibody (IGM) <30.00 AU/mL
[2022-07-30 16:41] LABS: Glucose Point of Care 183 mg/dL (70-110)
--- NOTE | 2022-07-30 17:45 | P.PN_ITS ---
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 Vitals/I&O/Wt Last Vital Signs Temp 98.3 F 07/30/22 16:00 Pulse 69 07/30/22 16:00 Resp 18 07/30/22 16:00 BP 142/71 07/30/22 16:00 Pulse Ox 94 07/30/22 16:00 O2 Del Method 07/30/22 16:00 O2 Flow Rate 2 07/30/22 08:00 07/30/22 07/30/22 07/30/22 06:59 14:59 22:59 Intake Total 1390 / 3816.667 1292 / 1292 100 / 1392 Output Total 300 / 900 250 / 250 Balance 1090 / 2916.667 1292 / 1292 -150 / 1142 Weight last 48 hrs Weight 68.039 kg Physical Exam Const: COMMON NORMALS: no acute distress and patient oriented x3 Resp: COMMON NORMALS: normal respiratory effort, No retractions, No use of accessory muscles and clear to auscultation bilaterally AUSCULTATION: clear to auscultation bilaterally Cardio: COMMON NORMALS: regular rate, regular rhythm, S1 normal heart sound present and S2 normal heart sound present RATE: regular rate RHYTHM: regular rhythm HEART SOUNDS: S1 normal heart sound present and S2 normal heart sound present GI: COMMON NORMALS: Normal to inspection, nondistended, normoactive bowel so unds present and non-tender OTHER: Urostomy in place Extremity: COMMON NORMALS: no pedal edema Neuro: COMMON NORMALS: patient oriented x3 Psych: COMMON NORMALS: mental status grossly normal Data 07/30/22 05:03 07/30/22 05:03 Micro: Microbiology 07/29/22 12:30 Stool Lactoferrin - Final Stool Enteric Pathogens (PCR) - Final Parasite Antigen Panel - Final C.difficile Toxin B Gene (PCR) - Final Occult Blood (FIT) - Final 07/28/22 19:56 Urine Culture - Preliminary Urine,Clean Catch Gram Negative Rods 07/28/22 23:40 Blood Culture - Preliminary Blood NEGATIVE TO DATE 07/28/22 23:43 Blood Culture - Preliminary Blood NEGATIVE TO DATE A&P Assessment and plan (1) Colitis: (2) Proctitis: (3) Diverticulitis: (4) Protein calorie malnutrition: (5) Physical deconditioning: (6) Goals of care, counseling/discussion: (7) FREEMAN (acute kidney injury): (8) Dehydration: (9) Chemotherapy induced diarrhea: (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 difficile negative -Await CMV, further stool studies -Continues Cipro and Flagyl Protein calorie malnutrition, has not had an appetite and 6 days, started on Remeron 7.5 mg at bedtime Complaints of dysphagia, placed on clear liquid diet, will have speech therapy see patient, advance diet as tolerated, protein shakes twice daily FREEMAN, resolved CAD continue Plavix History of follicular lymphoma, will obtain records from [place] History of urostomy, history of bladder removal, for transitional bladder cell carcinoma Protein calorie malnutrition, deconditioning. Hypothyroidism: Normal TSH, free T3, free T4 DNR/DNI Plan for today, replace magnesium, monitor stool studies likely discharge tomorrow, urine showing UTI, gram-negative rods, continue Cipro Attestations Medical Necessity Statement*: Patient requires hospitalization for UTI, hypomagnesemia, awaiting safe discharge tomorrow Coding Level of Care Code Acute Code for [facility] Fwd Diagnoses Colitis K52.9 Proctitis K62.89 Diverticulitis K57.92 Protein calorie malnutrition E46 Physical deconditioning R53.81 Goals of care, counseling/discussion Z71.89 FREEMAN (acute kidney injury) N17.9 Dehydration E86.0 Chemotherapy induced diarrhea K52.1; T45.1X5A History of follicular lymphoma Z85.72 History of hyperlipidemia Z86.39 History of hypertension Z86.79 History of bladder cancer Z85.51 History of type 2 diabetes mellitus Z86.39 History of CAD (coronary artery disease) Z86.79
[2022-07-30 20:32] LABS: Glucose Point of Care 256 mg/dL (70-110)
[2022-07-30] MEDS: atorvastatin 40 mg Tablet 80 MG PO (20:56)
[2022-07-31] VITALS (9 sets, daily range): BP systolic 124–154; BP diastolic 62–82; PULSE 72–90; RESP 16–24; TEMP 36.8–37.3; O2SAT 94–97
[2022-07-31] MEDS: enoxaparin 40 mg/0.4 mL Syringe SUBCUT (00:51)
[2022-07-31] MEDS: mirtazapine 15 mg Tablet 7.5 MG PO (00:52)
[2022-07-31] MEDS: pantoprazole 40 mg SDV IVP (00:52)
[2022-07-31] MEDS: metroNIDAZOLE IV 500 MG/100 ML PREMIX 100 MG IV ×2 (05:19→13:18)
[2022-07-31 06:34] LABS: Glucose Point of Care 223 mg/dL (70-110)
[2022-07-31] MEDS: cyanocobalamin 1,000 mcg Tablet 500 MCG PO (08:09)
[2022-07-31] MEDS: insulin lispro 100 unit/1 mL SUBCUT ×2 (08:09→17:23)
[2022-07-31] MEDS: clopidogrel 75 mg Tablet PO (08:10)
[2022-07-31] MEDS: allopurinol 100 mg Tablet PO (08:10)
[2022-07-31] MEDS: levothyroxine 25 mcg Tablet PO (08:10)
[2022-07-31] MEDS: cholecalciferol (vitamin D3) 1,000 unit Tablet 1000 UNIT PO (08:10)
[2022-07-31] MEDS: aspirin 81 mg EC Tablet 162 MG PO (08:10)
[2022-07-31] MEDS: folic acid 1 mg Tablet PO (08:10)
[2022-07-31] MEDS: dextrose 5%-sod chloride 0.9% 1,000 ML 125 ML IV (08:13)
[2022-07-31] MEDS: metoprolol succinate ER (24 HR) 50 mg Tablet PO (09:11)
[2022-07-31] MEDS: isosorbide mononitrate ER 60 mg Tablet PO (09:11)
[2022-07-31] MEDS: oxyCODONE 5 mg IR Tab/Cap PO ×2 (09:11→15:43)
[2022-07-31 12:16] LABS: Glucose Point of Care 143 mg/dL (70-110)
--- NOTE | 2022-07-31 13:06 | PC.PHAR ---
CALLED DR GRAJEDA TO CONFIRM ORDER FOR RITALIN ON THIS GENTLEMAN. STATES HE IS ORDERING THIS FOR ATYPICAL DEPRESSION AND TO STIMULATE THE APPETITE. RBTO RITALIN 5MG Q12H DR. GRAJEDA/CASTRO SHERWOOD
[2022-07-31] MEDS: ciprofloxacin 500 mg Tablet PO ×2 (13:18→20:19)
--- NOTE | 2022-07-31 13:23 | PM.PN ---
Subjective Subjective: - Patient was examined multiple times throughout the morning -Early in the morning he continues to feel fatigued, tired, he tells me that his stool has become significantly softer, more formed, more dark, but no more diarrhea -He just so to higher he tells me he does not have the energy to do anything he hates relying on people -According to nursing staff he and made a comment that he would be better off if he was not around anymore, his daughter is well taking care of and he has a gun safe at home and the guns are locked up -I confronted patient about this -He tells me that he is tired of living in pain, he hurts all over his back hurts him he is having severe pain -He is also tired he was a very independent person and now he has to lie on people for his activities of daily living which he is not accustomed to -He has had significant life altering events, his young son recently he a lot more and he is suffering with the pain -He also saw his , she was also on chemotherapy and she made him stop all her chemo and her dialysis as she just wanted to -He tells me that after seeing all this he just does not want to suffer he does not want to have the same fate -He says that is why he made those, and he does not have any intention to kill himself -In fact he tells me that he does not even have the energy to do it -He tells me that yes he has guns locked up in the house but he would not even have access to it he he would even have the energy to lift up again he feels so weak and he hurts all over -He has no thoughts of killing himself, he has no thoughts of killing others, he has no plan -He just tells me that he cannot live like this anymore, he cannot live with the pain, he cannot live being dependent on people -His cancer has been a significant life altering event and he just does not want to have the same fate as his and he just feels down and depressed based upon all the family members he has lost in his life -He was quite emotional when giving me this information -But he adamantly denies any suicidal or homicidal ideation -He just tired of living in pain, tired of depending on others tired of feeling so tired -I did discuss with him about pursuing hospice but he tells me that he is not ready to give up the chest yet, he wants to see how he responds to chemotherapy in August and what his next PET scan shows then he will decide -But is not ready to give up -He tells me that his daughter is taking care of, she has a $2 million inheritance so he is resting in comfort that she is well taking care of and that he has all his affairs in order upon his passing and that gives him comfort Vitals/I&O/Wt Last Vital Signs Temp 99.2 F 07/31/22 12:00 Pulse 77 07/31/22 12:00 Resp 24 H 07/31/22 09:11 BP 138/68 07/31/22 12:00 Pulse Ox 94 07/31/22 12:00 O2 Del Method 07/31/22 12:00 O2 Flow Rate 2 07/31/22 07:43 07/30/22 07/31/22 07/31/22 22:59 06:59 14:59 Intake Total 1415 / 2707 1300 / 4007 Output Total 250 / 250 Balance 1165 / 2457 1300 / 3757 Physical Exam Const: COMMON NORMALS: no acute distress and patient oriented x3 Resp: COMMON NORMALS: normal respiratory effort, No retractions, No use of accessory muscles and clear to auscultation bilaterally AUSCULTATION: clear to auscultation bilaterally Cardio: COMMON NORMALS: regular rate, regular rhythm, S1 normal heart sound present and S2 normal heart sound present RATE: regular rate RHYTHM: regular rhythm HEART SOUNDS: S1 normal heart sound present and S2 normal heart sound present GI: COMMON NORMALS: Normal to inspection, nondistended, normoactive bowel sounds present and non-tender Extremity: COMMON NORMALS: no pedal edema Neuro: COMMON NORMALS: patient oriented x3 Psych: COMMON NORMALS: mental status grossly normal Data 07/30/22 05:03 07/30/22 05:03 Micro: Microbiology 07/29/22 12:30 Stool Lactoferrin - Final Stool Enteric Pathogens (PCR) - Final Parasite Antigen Panel - Final C.difficile Toxin B Gene (PCR) - Final Occult Blood (FIT) - Final 07/28/22 19:56 Urine Culture - Preliminary Urine,Clean Catch Gram Negative Rods A&P Assessment and plan (1) Colitis: (2) Proctitis: (3) Diverticulitis: (4) Protein calorie malnutrition: (5) Physical deconditioning: (6) Goals of care, counseling/discussion: (7) FREEMAN (acute kidney injury): (8) Dehydration: (9) Chemotherapy induced diarrhea: (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: (11) History of hyperlipidemia: (12) History of hypertension: (13) History of bladder cancer: (14) History of type 2 diabetes mellitus: (15) History of CAD (coronary artery disease): (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: (17) Severe depression: (18) Proctitis: (19) Follicular lymphoma: Plan Severe depression, atypical depression -Start Ritalin 5 mg twice daily -Start Celexa 20 mg daily -No alarm symptoms, no homicidal ideation, no suicidal ideation -But in his words he is tired of living in his pain, he is tired of not having energy, he is tired of being dependent on others, he does not want to suffer anymore, but he still has the drive to live as he wants to's go through another round of chemotherapy, he wants to see how he does with his PET scan Poor appetite -Ritalin 5 mg twice daily to stimulate his appetite Colitis, proctitis, diarrhea -Diarrhea resolved -Hemoccult stool positive, C. difficile negative -Await CMV, further stool studies -Switch to p.o. Cipro and Flagyl Protein calorie malnutrition, has not had an appetite and 6 days, as above Complaints of dysphagia, placed on regular diet FREEMAN, resolved CAD continue Plavix History of follicular lymphoma, will obtain records from [place] History of urostomy, history of bladder removal, for transitional bladder cell carcinoma Protein calorie malnutrition, deconditioning. Hypothyroidism: Normal TSH, free T3, free T4 Cancer pain, oxycodone 11/07/2024 every 4 hours as needed for pain DNR/DNI Plan for today, severe atypical depression start Ritalin, Celexa, cancer pain oxycodone switch antibiotics to p.o., discussed with psychiatry Attestations Medical Necessity Statement*: Patient requires hospitalization for his diarrhea, severe depression atypical depression, cancer pain Coding Level of Care Code Acute Code for [facility] Fwd Diagnoses Colitis K52.9 Proctitis K62.89 Diverticulitis K57.92 Protein calorie malnutrition E46 Physical deconditioning R53.81 Goals of care, counseling/discussion Z71.89 FREEAMN (acute kidney injury) N17.9 Dehydration E86.0 Chemotherapy induced diarrhea K52.1; T45.1X5A History of follicular lymphoma Z85.72 History of hyperlipidemia Z86.39 History of hypertension Z86.79 History of bladder cancer Z85.51 History of type 2 diabetes mellitus Z86.39 History of CAD (coronary artery disease) Z86.79 Cancer associated pain G89.3 Severe depression F32.2 Proctitis K62.89 Follicular lymphoma C82.90
[2022-07-31] MEDS: citalopram 20 mg Tablet PO (13:34)
--- NOTE | 2022-07-31 14:41 | PC.NURSE ---
Spoke with patients daughter, Talisha as patient called her to say he was being d/c. I clarified that the d/c order was still cancelled upon patient talking with Dr. Virk this morning and agreed to stay another day for pain control. Talisha verified understanding.
--- NOTE | 2022-07-31 15:23 | PC.OT ---
OT TREATMENT ATTEMPTED AGAIN IN P.M. PATIENT STATES HE IS FEELING FINE AND PROBABLY GOING HOME THIS AFTERNOON. DECLINES OT TREATMENT AT THIS TIME.
[2022-07-31] MEDS: methylphenidate 10 mg Tablet 5 MG PO (16:45)
[2022-07-31 17:10] LABS: Glucose Point of Care 304 mg/dL (70-110)
--- NOTE | 2022-07-31 19:18 | P.NPUCON_ITS ---
Providers/Reason for Consult Consulting Physican/Specialty*: Elvis Tiwari MD Reason for Consult*: depression Attending Physician: Johan Virk MD Primary Care Provider: Shante Montoya Psych Consult HPI History of Present Illness Ehsan Garcias is a 82 year old male seen for psychiatric consultation at the request of the medical surgical team. The patient was seen for approximately 40 minutes. He had endorsed having a full life and reported that he had been feeling more tired and fatigued as he continued to etienne bladder cancer. He had reported having a loss of appetite and he reports that he was disappointed in having lost his independence due to the necessity of caring for himself. He had denied having any thoughts currently of killing himself and stated that he had felt better about his daughter having been provided for from him. He had also reported desire to complete what under treatment he can so that he would have the ability to travel. He had reported some difficulties with sleep. He had expressed in the past having more sadness stating that his had several years ago of cancer and reported that he did not wish to have any unnecessary suffering. He also described having pain but stated that he was able to distract himself. He had reported low energy but stated that his motivation to do various things were better. He had endorsed some regret at having stopped working as he had stated that he enjoyed working much of his [employer]. He denied any suicidal thoughts and minimized any plan of hurting himself. He had reported significant losses in his life including the loss of his son a few years ago. He denied any history of psychosis and has no reported history of anxiety. He denied any history of adrián. Past psychiatric history: None reported other than recent treatment for depression currently on Celexa 10 mg daily. He has no history of inpatient psychiatric hospitalization. Past Medical hx/surgical history: see below Medications: see below allergies: Codeine,meperidine, naproxen Meds Home Medications and Allergies Home Medications Medication Instructions Recorded Confirmed Last Taken Type allopurinol 100 mg tablet 100 mg PO DAILY 07/29/22 07/30/22 1 Day Ago History ~07/28/22 atorvastatin 40 mg tablet 40 mg PO DAILY 07/29/22 07/30/22 1 Day Ago History ~07/28/22 clopidogrel 75 mg tablet (Plavix) 75 mg PO DAILY 07/29/22 07/30/22 1 Day Ago History ~07/28/22 folic acid 1 mg tablet 1 mg PO DAILY 07/29/22 07/30/22 1 Day Ago History ~07/28/22 isosorbide mononitrate 60 mg 60 mg PO DAILY 07/29/22 07/30/22 1 Day Ago History tablet,extended release 24 hr ~07/28/22 levothyroxine 25 mcg tablet 25 mcg PO DAILY 07/29/22 07/30/22 1 Day Ago History ~07/28/22 metoprolol succinate 50 mg 50 mg PO DAILY 07/29/22 07/30/22 1 Day Ago History tablet,extended release 24 hr ~07/28/22 spironolactone 25 mg tablet 12.5 mg PO DAILY 07/29/22 07/30/22 1 Day Ago History ~07/28/22 torsemide 20 mg tablet 20 mg PO DAILY 07/29/22 07/30/22 1 Day Ago History ~07/28/22 atorvastatin 40 mg tablet 40 mg PO BEDTIME 30 days #30 tabs 07/30/22 07/30/22 Unknown Rx cyanocobalamin (vitamin B-12) 500 mcg PO DAILY 30 days #30 tabs 07/30/22 07/30/22 Unknown Rx 1,000 mcg tablet (Vitamin B-12) folic acid 1 mg tablet 1 mg PO DAILY 30 days #30 tabs 07/30/22 07/30/22 Unknown Rx mirtazapine 15 mg tablet 7.5 mg PO Q24H 30 days #15 tabs 07/30/22 07/30/22 Un known Rx ciprofloxacin HCl 500 mg tablet 500 mg PO BID 3 days #6 tabs 08/01/22 Unknown Rx (Cipro) citalopram 10 mg tablet (Celexa) 10 mg PO DAILY 30 days #30 tabs 08/01/22 Unknown Rx magnesium L-lactate 84 mg 84 mg PO BID 7 days #14 tabs 08/01/22 Unknown Rx tablet,extended release (Magtab) methylphenidate HCl 10 mg tablet 5 mg PO BID 7 days #7 tabs 08/01/22 Unknown Rx metronidazole 500 mg tablet 500 mg PO Q8H 3 days #9 tabs 08/01/22 Unknown Rx oxycodone 5 mg tablet 5 mg PO Q8H PRN Moderate Pain 7 08/01/22 Unknown Rx days #21 tabs sodium di- and 250 mg PO BID 7 days #14 tabs 08/01/22 Unknown Rx monophosphate-potassium phos monobasic 250 mg tablet (Phospha Neutral) Allergies Allergy/AdvReac Type Severity Reaction Status Date / Time codeine Allergy ADR-Nausea Verified 07/29/22 02:54 meperidine [From Demerol] Allergy ADR-Nausea Verified 07/29/22 02:55 naproxen Allergy ALGY-Anaphy Verified 07/29/22 03:41 laxis shrimp Allergy ADR-Nausea Verified 07/29/22 03:41 Current Medications Current Medications Generic Name Dose Route Start Last Admin Trade Name Freq PRN Reason Stop Dose Admin Acetaminophen 650 mg 07/29/22 01:55 07/30/22 09:31 Acetaminophen 325 Mg Tablet PO 650 mg Q6H PRN Administration Mild/Mod Pain Or Temp >/= 101 Allopurinol 100 mg 07/29/22 09:00 07/31/22 08:10 Allopurinol 100 Mg Tablet PO 100 mg DAILY DARIUS Administration Aspirin 162 mg 07/29/22 09:00 07/31/22 08:10 Aspirin 81 Mg Ec Tablet PO 162 mg DAILY DARIUS Administration Atorvastatin Calcium 80 mg 07/29/22 21:00 07/30/22 20:56 Atorvastatin 40 Mg Tablet PO 80 mg BEDTIME DARIUS Administration Ciprofloxacin HCl 500 mg 07/31/22 12:30 07/31/22 13:18 Ciprofloxacin 500 Mg Tablet PO 500 mg BID@0900,2100 DARIUS Administration Citalopram Hydrobromide 20 mg 07/31/22 13:30 07/31/22 13:34 Citalopram 20 Mg Tablet PO 20 mg Q24H DARIUS Administration Clopidogrel Bisulfate 75 mg 07/29/22 09:00 07/31/22 08:10 Clopidogrel 75 Mg Tablet PO 75 mg DAILY DARIUS Administration Cyanocobalamin 500 mcg 07/29/22 09:00 07/31/22 08:09 Cyanocobalamin 1,000 Mcg Tablet PO 500 mcg DAILY DARIUS Administration Enoxaparin Sodium 40 mg 07/29/22 01:55 07/31/22 00:51 Enoxaparin 40 Mg/0.4 Ml Syringe SUBCUT 40 mg Q24H DARIUS Administration Folic Acid 1 mg 07/29/22 09:00 07/31/22 08:10 Folic Acid 1 Mg Tablet PO 1 mg DAILY DARIUS Administration Insulin Human Lispro 0 unit 07/29/22 08:00 07/31/22 17:23 Insulin Lispro 100 Unit/1 Ml SUBCUT 10 unit TIDWM DARIUS Administration Protocol Isosorbide Mononitrate 60 mg 07/30/22 09:00 07/31/22 09:11 Isosorbide Mononitrate Er 60 Mg Tablet PO 60 mg DAILY DARIUS Administration Levothyroxine Sodium 25 mcg 07/30/22 09:00 07/31/22 08:10 Levothyroxine 25 Mcg Tablet PO 25 mcg DAILY DARIUS Administration Methylphenidate HCl 5 mg 07/31/22 18:00 07/31/22 16:45 Methylphenidate 10 Mg Tablet PO 5 mg BID DARIUS Administration Metoprolol Succinate 50 mg 07/29/22 09:00 07/31/22 09:11 Metoprolol Succinate Er (24 Hr) 50 Mg Tablet PO 50 mg DAILY DARIUS Administration Ondansetron HCl 4 mg 07/29/22 01:55 07/29/22 13:09 Ondansetron 2 Mg/Ml Sdv 2 Ml IVP 4 mg Q8H PRN Administration vomiting, or N/V if npo Oxycodone HCl 5 mg 07/31/22 08:53 07/31/22 15:43 Oxycodone 5 Mg Ir Tab/Cap PO 5 mg Q6H PRN Administration MODERATE PAIN Pantoprazole Sodium 40 mg 07/29/22 01:55 07/31/22 00:52 Pantoprazole 40 Mg Sdv IVP 40 mg Q24H DARIUS Administration Vitamin D 1,000 unit 07/29/22 09:00 07/31/22 08:10 Cholecalciferol (Vitamin D3) 1,000 Unit Tablet PO 1,000 unit DAILY DARIUS Administration PFSH NPU PFSH: Medical History (Updated 08/01/22 @ 17:33 by Elvis Tiwair MD) History of bladder cancer History of CAD (coronary artery disease) History of CVA (cerebrovascular accident) History of follicular lymphoma History of hyperlipidemia History of hypertension History of type 2 diabetes mellitus Surgical History (Updated 07/29/22 @ 00:23 by Johan Virk MD) History of heart artery stent History of urostomy Family History (Updated 07/29/22 @ 00:23 by Johan Virk MD) Father CAD (coronary artery disease) Mother Medication overdose Social History (Updated 07/29/22 @ 00:24 by Johan Virk MD) Smoking and tobacco status: never smoked Alcohol intake: never Substance/Drug Use: never Mental Status Exam MSE Comments: He is a pleasant white male who appeared his stated age who appeared in no acute distress. He was friendly and open during his interview. He was a good historian. He he was alert and oriented to person place time and situation. His mood had been described as all right. His affect was restricted in range and mood incongruent. He had acknowledged having depression as he had expressed hope of having more time. He reported good motivation. There was no clear evidence of delusional thinking. He did not appear to be responding to internal stimuli. His insight was fair. His judgment appeared adequate. His impulse control appeared fair his recent and remote memory appear grossly intact. His intelligence was above average. Vitals/I&O/Wt Last Vital Signs Temp 98.9 F 07/31/22 16:00 Pulse 87 07/31/22 16:00 Resp 22 H 07/31/22 15:43 BP 151/82 07/31/22 16:00 Pulse Ox 96 07/31/22 16:00 O2 Del Method 07/31/22 16:00 O2 Flow Rate 2 07/31/22 07:43 07/31/22 07/31/22 07/31/22 06:59 14:59 22:59 Intake Total 1300 / 4007 120 / 120 120 / 240 Output Total 450 / 450 Balance 1300 / 3757 120 / 120 -330 / -210 Data NPU 07/30/22 05:03 07/30/22 05:03 Micro: Microbiology 07/28/22 19:56 Urine Culture - Final Urine,Clean Catch Escherichia coli Providencia rettgeri 07/29/22 12:30 Stool Lactoferrin - Final Stool Enteric Pathogens (PCR) - Final Parasite Antigen Panel - Final C.difficile Toxin B Gene (PCR) - Final Occult Blood (FIT) - Final Microbiology 07/28/22 19:56 Urine,Clean Catch Urine Culture - Final Escherichia coli Providencia rettgeri 07/29/22 12:30 Stool Stool Lactoferrin - Final 07/29/22 12:30 Stool Enteric Pathogens (PCR) - Final 07/29/22 12:30 Stool Parasite Antigen Panel - Final 07/29/22 12:30 Stool C.difficile Toxin B Gene (PCR) - Final 07/29/22 12:30 Stool Occult Blood (FIT) - Final A&P Assessment and plan (1) Major depressive disorder: (2) History of bladder cancer: (3) Protein calorie malnutrition: Plan Patient is 82-year-old male with some depression with likely terminal cancer who appears to be depressed but motivated to extend his life. He does appear to have some diminished appetite and decreased motivation. Despite relative anorexia and possible appetite loss noted on Ritalin, methylphenidate may help with some patients who are struggling with lack of execution and initiate if this is a reasonable medication to consider for a brief period of time to add to Celexa to target depression with recommendations for follow-up with outpatient provider in the month. Attestations NPU Medical Necessity Statement*: not applicable. Coding Level of Care Code New Pt Acute Code for Chg Fwd Patient Type New History Problem Focused Exam Problem Focused Medical Decision Making Straight Forward Diagnoses Major depressive disorder F32.9 History of bladder cancer Z85.51 Protein calorie malnutrition E46
[2022-07-31] MEDS: metroNIDAZOLE 500 MG Tablet PO (20:19)
[2022-07-31] MEDS: atorvastatin 40 mg Tablet 80 MG PO (20:19)
[2022-07-31 20:45] LABS: Glucose Point of Care 291 mg/dL (70-110)
[2022-08-01] VITALS (11 sets, daily range): BP systolic 130–153; BP diastolic 64–69; PULSE 73–108; RESP 15–18; TEMP 36.4–37; O2SAT 93–97
[2022-08-01] MEDS: enoxaparin 40 mg/0.4 mL Syringe SUBCUT (00:52)
[2022-08-01] MEDS: pantoprazole 40 mg SDV IVP (00:52)
[2022-08-01 00:58] LABS: Glucose Point of Care 266 mg/dL (70-110)
[2022-08-01 04:34] LABS: Basophils % 0.1 %; Hematocrit 32.5 % (42.0-52.0); Hemoglobin 10.3 g/dL (11.7-16.6); Lymphocytes # 0.6 10^3/uL (0.8-4.8); Lymphocytes % 4.4 %; Mean Corpuscular HGB Conc 31.7 g/dL (30.0-36.0); Mean Corpuscular Hemoglobin 33.3 pg (28.0-34.0); Mean Corpuscular Volume 105.2 fl (80-94); Mean Platelet Volume 10.3 fL (7.4-10.4); Monocytes # 0.5 10^3/uL (0.2-0.9); Monocytes % 3.7 %; Neutrophils % 90.9 %; Nucleated Red Blood Cells % 0 %; Platelet Count 184 10^3/cmm (130-400); Red Blood Count 3.09 10^6/uL (4.1-5.3); Red Cell Distribution Width 17.2 % (12.1-15.1); White Blood Count 13.4 10^3/uL (4.0-10.0)
[2022-08-01 04:57] LABS: Anion Gap 11.8 (5-19); Blood Urea Nitrogen 17 mg/dL (8-23); Calcium 8.4 mg/dL (8.5-10.5); Carbon Dioxide 22 mmol/L (22-29); Chloride 110 mmol/L (98-107); Glucose 265 mg/dL (65-115); Osmolality Calculated 299 mOsm/kg (285-295); Potassium 4.8 mmol/L (3.5-5.1); Sodium 139 mmol/L (136-145)
[2022-08-01 04:58] LABS: Magnesium 1.6 mg/dL (1.7-2.3); Phosphorus 2.3 mg/dL (2.5-4.5)
[2022-08-01 06:50] LABS: Glucose Point of Care 261 mg/dL (70-110)
[2022-08-01] MEDS: levothyroxine 25 mcg Tablet PO (09:24)
[2022-08-01] MEDS: folic acid 1 mg Tablet PO (09:24)
[2022-08-01] MEDS: cyanocobalamin 1,000 mcg Tablet 500 MCG PO (09:24)
[2022-08-01] MEDS: ciprofloxacin 500 mg Tablet PO ×2 (09:25→19:55)
[2022-08-01] MEDS: metroNIDAZOLE 500 MG Tablet PO ×3 (09:25→19:55)
[2022-08-01] MEDS: aspirin 81 mg EC Tablet 162 MG PO (09:25)
[2022-08-01] MEDS: metoprolol succinate ER (24 HR) 50 mg Tablet PO (09:25)
[2022-08-01] MEDS: phosphorus 250 mg Tablet PO ×2 (09:25→17:21)
[2022-08-01] MEDS: isosorbide mononitrate ER 60 mg Tablet PO (09:25)
[2022-08-01] MEDS: methylphenidate 10 mg Tablet 5 MG PO ×2 (09:25→17:22)
[2022-08-01] MEDS: insulin lispro 100 unit/1 mL SUBCUT ×2 (09:25→13:30)
[2022-08-01] MEDS: clopidogrel 75 mg Tablet PO (09:25)
[2022-08-01] MEDS: cholecalciferol (vitamin D3) 1,000 unit Tablet 1000 UNIT PO (09:25)
[2022-08-01] MEDS: magnesium lactate 84 mg Tablet PO ×2 (09:25→17:22)
[2022-08-01] MEDS: allopurinol 100 mg Tablet PO (09:25)
[2022-08-01 11:53] LABS: Glucose Point of Care 187 mg/dL (70-110)
--- NOTE | 2022-08-01 12:15 | PC.OT ---
OT TREATMENT HELD TODAY DUE TO SCHEDULED PATIENT D/C
[2022-08-01] MEDS: citalopram 20 mg Tablet PO (13:31)
--- NOTE | 2022-08-01 16:39 | PC.NURSE ---
attempted to contact patients daughter jazmin, there was no answer.
[2022-08-01 16:51] LABS: Glucose Point of Care 140 mg/dL (70-110)
[2022-08-01] MEDS: atorvastatin 40 mg Tablet 80 MG PO (19:55)
--- NOTE | 2022-08-01 20:03 | PC.NURSE ---
Patient educated not to get up without help. Patient states well when I've gotta go, I've gotta go. Patient's bed alarm set. Patient states that he has a history of falls.
[2022-08-01 20:44] LABS: Glucose Point of Care 137 mg/dL (70-110)
[2022-08-02] MEDS: enoxaparin 40 mg/0.4 mL Syringe SUBCUT (01:22)
[2022-08-02] MEDS: pantoprazole 40 mg SDV IVP (01:22)
[2022-08-02 04:00] VITALS: BP 146/70; PULSE 88; RESP 20; TEMP 37; O2SAT 94
[2022-08-02 04:21] VITALS: PULSE 85
[2022-08-02 05:02] LABS: Basophils % 0.4 %; Eosinophils # 0.3 10^3/uL (0.0-0.8); Eosinophils % 3.6 %; Hemoglobin 9.8 g/dL (11.7-16.6); Lymphocytes # 0.5 10^3/uL (0.8-4.8); Mean Corpuscular HGB Conc 31.6 g/dL (30.0-36.0); Mean Corpuscular Hemoglobin 33.1 pg (28.0-34.0); Mean Corpuscular Volume 104.7 fl (80-94); Mean Platelet Volume 10.2 fL (7.4-10.4); Monocytes # 0.5 10^3/uL (0.2-0.9); Monocytes % 6.3 %; Neutrophils # 7.12 10^3/uL (1.8-7.7); Nucleated Red Blood Cells % 0 %; Platelet Count 202 10^3/cmm (130-400); Red Blood Count 2.96 10^6/uL (4.1-5.3); White Blood Count 8.6 10^3/uL (4.0-10.0)
[2022-08-02 05:29] LABS: Anion Gap 14.5 (5-19); Blood Urea Nitrogen 14 mg/dL (8-23); Calcium 8.2 mg/dL (8.5-10.5); Carbon Dioxide 20 mmol/L (22-29); Chloride 112 mmol/L (98-107); Glucose 153 mg/dL (65-115); Magnesium 1.7 mg/dL (1.7-2.3); Osmolality Calculated 298 mOsm/kg (285-295); Phosphorus 2.6 mg/dL (2.5-4.5); Potassium 4.5 mmol/L (3.5-5.1); Sodium 142 mmol/L (136-145)
[2022-08-02 06:27] LABS: Glucose Point of Care 141 mg/dL (70-110)
[2022-08-02 07:20] VITALS: PULSE 86; O2SAT 92
[2022-08-02 08:00] VITALS: BP 159/70; PULSE 87; RESP 16; TEMP 36.8; O2SAT 96
[2022-08-02] MEDS: insulin lispro 100 unit/1 mL SUBCUT ×2 (09:28→12:11)
[2022-08-02] MEDS: methylphenidate 10 mg Tablet 5 MG PO (09:29)
[2022-08-02] MEDS: folic acid 1 mg Tablet PO (09:29)
[2022-08-02] MEDS: cyanocobalamin 1,000 mcg Tablet 500 MCG PO (09:29)
[2022-08-02] MEDS: cholecalciferol (vitamin D3) 1,000 unit Tablet 1000 UNIT PO (09:29)
[2022-08-02] MEDS: aspirin 81 mg EC Tablet 162 MG PO (09:29)
[2022-08-02] MEDS: ciprofloxacin 500 mg Tablet PO (09:29)
[2022-08-02] MEDS: isosorbide mononitrate ER 60 mg Tablet PO (09:29)
[2022-08-02] MEDS: magnesium lactate 84 mg Tablet PO (09:29)
[2022-08-02] MEDS: phosphorus 250 mg Tablet PO (09:29)
[2022-08-02] MEDS: allopurinol 100 mg Tablet PO (09:30)
[2022-08-02] MEDS: levothyroxine 25 mcg Tablet PO (09:30)
[2022-08-02] MEDS: metroNIDAZOLE 500 MG Tablet PO (09:30)
[2022-08-02] MEDS: metoprolol succinate ER (24 HR) 50 mg Tablet PO (09:30)
[2022-08-02] MEDS: clopidogrel 75 mg Tablet PO (09:30)
--- NOTE | 2022-08-02 09:48 | P.PN_ITS ---
Subjective Subjective: Patient was seen this morning, he tells me that he has more energy, he feels better, still has a poor appetite, he is awaiting to go home, as his family does not have power, discharge orders are in, he is agreeable to go home Vitals/I&O/Wt Last Vital Signs Temp 98.3 F 08/02/22 08:00 Pulse 87 08/02/22 08:00 Resp 16 08/02/22 08:00 BP 159/70 08/02/22 08:00 Pulse Ox 96 08/02/22 08:00 O2 Del Method 08/02/22 08:00 O2 Flow Rate 2 07/31/22 20:00 08/01/22 08/02/22 08/02/22 22:59 06:59 14:59 Intake Total 240 / 580 200 / 780 240 / 240 Output Total 0 / 400 Balance 240 / 180 200 / 380 240 / 240 Physical Exam Const: COMMON NORMALS: no acute distress and patient oriented x3 Resp: COMMON NORMALS: normal respiratory effort, No retractions, No use of accessory muscles and clear to auscultation bilaterally AUSCULTATION: clear to auscultation bilaterally Cardio: COMMON NORMALS: regular rate, regular rhythm, S1 normal heart sound present and S2 normal heart sound present RATE: regular rate RHYTHM: regular rhythm HEART SOUNDS: S1 normal heart sound present and S2 normal heart sound present GI: COMMON NORMALS: Normal to inspection, nondistended, normoactive bowel rosmery nds present Extremity: COMMON NORMALS: no pedal edema Neuro: COMMON NORMALS: patient oriented x3 Data 08/02/22 04:34 08/02/22 04:34 A&P Assessment and plan (1) Colitis: (2) Proctitis: (3) Diverticulitis: (4) Protein calorie malnutrition: (5) Physical deconditioning: (6) Goals of care, counseling/discussion: (7) FREEMAN (acute kidney injury): (8) Dehydration: (9) Chemotherapy induced diarrhea: (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: (11) History of hyperlipidemia: (12) History of hypertension: (13) History of bladder cancer: (14) History of type 2 diabetes mellitus: (15) History of CAD (coronary artery disease): (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: (17) Severe depression: (18) Proctitis: (19) Follicular lymphoma: Plan Severe depression, atypical depression -Start Ritalin 5 mg twice daily -Start Celexa 20 mg daily -No alarm symptoms, no homicidal ideation, no suicidal ideation -But in his words he is tired of living in his pain, he is tired of not having energy, he is tired of being dependent on others, he does not want to suffer anymore, but he still has the drive to live as he wants to's go through another round of chemotherapy, he wants to see how he does with his PET scan Poor appetite -Ritalin 5 mg twice daily to stimulate his appetite Colitis, proctitis, diarrhea -Diarrhea resolved -Hemoccult stool positive, C. difficile negative -Await CMV, further stool studies -Switch to p.o. Cipro and Flagyl Protein calorie malnutrition, has not had an appetite and 6 days, as above Complaints of dysphagia, placed on regular diet FREEMAN, resolved CAD continue Plavix History of follicular lymphoma, will obtain records from [place] History of urostomy, history of bladder removal, for transitional bladder cell carcinoma Protein calorie malnutrition, deconditioning. Hypothyroidism: Normal TSH, free T3, free T4 Cancer pain, oxycodone 11/07/2024 every 4 hours as needed for pain DNR/DNI Plan for today, hopefully discharge home today Attestations Medical Necessity Statement*: Discharge home today Coding Level of Care Code Acute Code for g Fwd Diagnoses Colitis K52.9 Proctitis K62.89 Diverticulitis K57.92 Protein calorie malnutrition E46 Physical deconditioning R53.81 Goals of care, counseling/discussion Z71.89 FREEMAN (acute kidney injury) N17.9 Dehydration E86.0 Chemotherapy induced diarrhea K52.1; T45.1X5A History of follicular lymphoma Z85.72 History of hyperlipidemia Z86.39 History of hypertension Z86.79 History of bladder cancer Z85.51 History of type 2 diabetes mellitus Z86.39 History of CAD (coronary artery disease) Z86.79 Cancer associated pain G89.3 Severe depression F32.2 Proctitis K62.89 Follicular lymphoma C82.90
[2022-08-02 12:00] VITALS: BP 149/62; PULSE 70; RESP 18; TEMP 36.8; O2SAT 92
[2022-08-02 12:03] LABS: Glucose Point of Care 143 mg/dL (70-110)
[2022-08-02] MEDS: citalopram 20 mg Tablet PO (12:11)
--- NOTE | 2022-08-02 15:01 | PC.NURSE ---
patient and family verbalized understanding of discharge instructions, home medications, and follow up appointments.
[2022-08-02 15:02] VITALS: BP 149/62; PULSE 70; RESP 18; TEMP 36.8; O2SAT 92
== END 2022-08-02 15:03 | disposition home or self-care (01) | DRG 394 ==
LOC: ER 07-29 01:03 → MEDSURG 07-29 01:19
PROVIDERS: Internal Medicine; Admitting Provider Family Medicine; Emergency Provider Physician Assistant; PCP Registered Nurse; Visit Provider Family Medicine
DX: K52.1 Toxic gastroenteritis and colitis (principal); C82.30 Follicular lymphoma grade IIIa, unspecified site; E46 Unspecified protein-calorie malnutrition; N17.9 Acute kidney failure, unspecified; N39.0 Urinary tract infection, site not specified; D84.821 Immunodeficiency due to drugs; T45.1X5A Adverse effect of antineoplastic and immunosuppressive drugs, initial encounter; K62.89 Other specified diseases of anus and rectum; Z68.24 Body mass index [BMI] 24.0-24.9, adult; E86.0 Dehydration; E78.5 Hyperlipidemia, unspecified; I10 Essential (primary) hypertension; Z85.51 Personal history of malignant neoplasm of bladder; E11.9 Type 2 diabetes mellitus without complications; I25.10 Atherosclerotic heart disease of native coronary artery without angina pectoris; Z95.5 Presence of coronary angioplasty implant and graft; G89.3 Neoplasm related pain (acute) (chronic); F32.9 Major depressive disorder, single episode, unspecified; F41.9 Anxiety disorder, unspecified; Z93.6 Other artificial openings of urinary tract status; E83.42 Hypomagnesemia; Z79.02 Long term (current) use of antithrombotics/antiplatelets; Z86.73 Personal history of transient ischemic attack (TIA), and cerebral infarction without residual deficits; Z79.899 Other long term (current) drug therapy; E03.9 Hypothyroidism, unspecified; Z90.6 Acquired absence of other parts of urinary tract
CPT/HCPCS: 36415; 36416; 71045; 74018; 74177; 80048; 80053; 81001; 82274; 82962; 83605; 83630; 83735; 84100; 84145; 84439; 84443; 84481; 84550; 85025; 86140; 87040; 87077; 87086; 87186; 87493; 87506; 92523; 92610; 93005; 96365; 96367; 96372; 96375; 97110; 97116; 97162; 97165; 97530; 97535; 99285; C9113; J0744; J1650; J1815; J2270; J2405; J2930; J3475; J3490; J7042; Q9967

== ENCOUNTER → 2022-08-14 12:34 | Outpatient (BNVA) | payer MEDICARE, SELFPAY | PROVIDERS: PCP Registered Nurse; Visit Provider Internal Medicine Cardiovascular Disease | DX: I25.10 Atherosclerotic heart disease of native coronary artery without angina pectoris (principal); C82.90 Follicular lymphoma, unspecified, unspecified site; I45.2 Bifascicular block; I10 Essential (primary) hypertension; E78.2 Mixed hyperlipidemia; E11.9 Type 2 diabetes mellitus without complications; Z79.4 Long term (current) use of insulin; Z95.1 Presence of aortocoronary bypass graft; F17.210 Nicotine dependence, cigarettes, uncomplicated | CPT/HCPCS: 99204; Q3014 ==

== ENCOUNTER 2022-09-27 12:36 | Oncology outpatient (recurring) (ONCR) | payer MEDICARE, SELFPAY | END 2022-10-05 23:59 | disposition home or self-care (01) | PROVIDERS: PCP Registered Nurse; Visit Provider Internal Medicine Hematology & Oncology | DX: C82.38 Follicular lymphoma grade IIIa, lymph nodes of multiple sites (principal); F17.210 Nicotine dependence, cigarettes, uncomplicated; Z85.51 Personal history of malignant neoplasm of bladder; Z92.21 Personal history of antineoplastic chemotherapy; Z92.3 Personal history of irradiation; Z91.14 Patient's other noncompliance with medication regimen; Z95.828 Presence of other vascular implants and grafts | CPT/HCPCS: 96523; 99204 ==

== ENCOUNTER 2022-10-21 11:06 | Emergency (ER) | payer MEDICARE, SELFPAY ==
[2022-10-21 11:08] VITALS: BP 154/60; PULSE 67; RESP 14; O2SAT 96; BMI 26.6
--- NOTE | 2022-10-21 11:08 | W.ED.AMS ---
HPI - Altered Mental Status General: Chief Complaint: Recheck/Abnormal Lab/Rx Stated Complaint: AMS; HYPOGLYCEMIA Time Seen by Provider: 10/21/22 11:08 History of Present Illness: Mr Garcias is a 82-year-old gentleman with history of diabetes presenting to the emergency department for episode of altered mental status and hypoglycemia that this subsequently resolved. He reports being at his baseline health and dealing with chronic cancer related symptoms. He took his insulin last night and woke up at about 4 AM. He subsequently does not not remember anything essentially until he arrived here. He does not think that he ate anything this morning. Currently feels back to baseline. No other specific changes in health, exacerbating, or alleviating factors identified. Onset (ago): hour(s) Associated symptoms: Reports no associated symptoms Review of Systems General: Reports: 10 or more systems reviewed and unremarkable except in HPI and below PFSH ED PFSH: Medical History Bifascicular block Diabetes mellitus Follicular lymphoma grade 3a History of bladder cancer History of CAD (coronary artery disease) History of CVA (cerebrovascular accident) History of follicular lymphoma History of hyperlipidemia History of hypertension History of HI (myocardial infarction) History of type 2 diabetes mellitus Surgical History History of heart artery stent History of urostomy Hx of total cystectomy S/P CABG (coronary artery bypass graft) S/P colectomy S/P ileal conduit S/P prostatectomy Family History Father CAD (coronary artery disease) Mother Medication overdose Social History Smoking and tobacco status: current every day smoker cigarettes Packs smoked per day: 0.5 [ Other cigarette details: Quit for 10 years] Alcohol intake: never Substance/Drug Use: never Physical Exam Const: COMMON NORMALS: patient oriented x3 and alert GENERAL APPEARANCE: cooperative and well developed HENMT: COMMON NORMALS: normocephalic and atraumatic HEAD & SCALP: normocephalic and atraumatic THROAT: posterior oropharynx normal Eye: COMMON NORMALS: conjunctivae normal CONJUNCTIVA: Yes conjunctivae normal SCLERA: sclerae normal Neck/C-Spine: COMMON NORMALS: supple GENERAL: Yes trachea midline Resp: COMMON NORMALS: normal respiratory effort and clear to auscultation bilaterally EFFORT & INSPECTION: Yes able to speak in complete sentences AUSCULTATION: clear to auscultation bilaterally Cardio: COMMON NORMALS: regular rate and regular rhythm RATE: regular rate RHYTHM: regular rhythm GI: COMMON NORMALS: Soft to palpation PALPATION: Yes Soft to palpation and No Tenderness to palpation present (GI) Extremity: GENERAL: Yes normal exam except as noted and No edema Neuro: COMMON NORMALS: patient oriented x3, CN's II-XII intact bilaterally, moves all extremities and no focal motor deficits SENSORIUM/ORIENTATION: Yes alert and No Orientation impaired Psych: COMMON NORMALS: mental status grossly normal and Normal thought process present THOUGHT PROCESS: Normal thought process present Course Vital Signs: Vital signs: Vital Signs Pulse Rate 60 10/21/22 15:14 Respiratory Rate 14 10/21/22 15:14 Blood Pressure 154/60 10/21/22 11:08 Pulse Oximetry 98 10/21/22 15:14 Oxygen Delivery Me thod Room Air 10/21/22 15:14 MDM - Altered Mental Status Medical Decision Making 82-year-old gentleman presenting due to episode of hypoglycemia and altered mental status which has subsequently resolved. No neurologic deficits on exam and patient is nontoxic. Given some degree of uncertainty and patient's age/risk factors he requires further evaluation. EKG notable for sinus rhythm with incomplete right bundle branch block, axis deviation, nonspecific ST segment abnormalities, no STEMI. Labs with no leukocytosis, normal hemoglobin and platelet count. Metabolic panel with mild dehydration, minimal hypokalemia though there is mild hemolysis. Negative range 2 or delta troponin. BNP is mildly elevated though patient is not grossly volume overloaded on clinical exam. CT head with chronic findings however no acute findings explain symptoms. He is tolerating p.o. fluids and food. Serial reassessment of glucose and mental status remains normal. He is not on high risk oral agents. He plans to follow-up with primary care. The results of ED evaluation were discussed with the patient including prescriptions and/or symptomatic cares (if applicable) including appropriate and responsible use, followup plan, and return precautions. The patient verbalized understanding and felt safe for discharge. Medical Records I reviewed the patient's medical records. Lab Data I reviewed the patient's lab results. 10/21/22 11:55 10/21/22 11:[address] 10/21/22 13:32 IMPRESSION: 1. Generalized/diffuse atrophy or volume loss, along with periventricular chronic small-vessel disease change bilaterally. 2. No acute findings. Laboratory Results WBC 5.5 10^3/uL (4.0-10.0) 10/21/22 11:55 RBC 3.59 10^6/uL (4.1-5.3) L 10/21/22 11:55 Hgb 12.0 g/dL (11.7-16.6) 10/21/22 11:55 Hct 37.8 % (42.0-52.0) L 10/21/22 11:55 MCV 105.3 fl (80-94) H 10/21/22 11:55 MCH 33.4 pg (28.0-34.0) 10/21/22 11:55 MCHC 31.7 g/dL (30.0-36.0) 10/21/22 11:55 RDW 14.8 % (12.1-15.1) 10/21/22 11:55 Plt Count 158 10^3/cmm (130-400) 10/21/22 11:55 MPV 10.1 fL (7.4-10.4) 10/21/22 11:55 Neut % (Auto) 73.8 % 10/21/22 11:55 Lymph % (Auto) 12.6 % 10/21/22 11:55 [place] % (Auto) 9.7 % 10/21/22 11:55 Eos % (Auto) 1.6 % 10/21/22 11:55 Baso % (Auto) 0.7 % 10/21/22 11:55 Neut # (Auto) 4.04 10^3/uL (1.8-7.7) 10/21/22 11:55 Lymph # (Auto) 0.7 10^3/uL (0.8-4.8) L 10/21/22 11:55 [place] # (Auto) 0.5 10^3/uL (0.2-0.9) 10/21/22 11:55 Eos # (Auto) 0.1 10^3/uL (0.0-0.8) 10/21/22 11:55 Baso # (Auto) 0.0 10^3/uL (0.0-0.1) 10/21/22 11:55 Nucleated RBC % (auto) 0 % 10/21/22 11:55 Nucleated RBCs # 0.0 /100WBC 10/21/22 11:55 Sodium 133 mmol/L (136-145) L 10/21/22 11:55 Potassium 5.3 mmol/L (3.5-5.1) H 10/21/22 11:55 Chloride 103 mmol/L (98-107) 10/21/22 11:55 Carbon Dioxide 18 mmol/L (22-29) L 10/21/22 11:55 Anion Gap 17.3 (5-19) 10/21/22 11:55 BUN 15 mg/dL (8-23) 10/21/22 11:55 Creatinine 1.4 mg/dL (0.7-1.2) H 10/21/22 11:55 GFR Calculation Not Reportable 10/21/22 11:55 Glucose 89 mg/dL (65-115) 10/21/22 11:55 POC Glucose 87 mg/dL (70-110) 10/21/22 16:04 Calculated Osmolality 276 mOsm/kg (285-295) L 10/21/22 11:55 Calcium 9.1 mg/dL (8.5-10.5) 10/21/22 11:55 Total Bilirubin 0.4 mg/dL (0.15-1.2) 10/21/22 11:55 AST 41 U/L (0-40) H 10/21/22 11:55 ALT 17 U/L (0-41) 10/21/22 11:55 Alkaline Phosphatase 87 U/L (40-130) 10/21/22 11:55 Troponin T Baseline 42 ng/L (0-15) H 10/21/22 11:55 Troponin T 120 Minute 37.65 ng/L (0-15) H 10/21/22 13:55 Delta Troponin T -4.35 ABS# (0-10) L 10/21/22 13:55 C-Reactive Protein 3.0 mg/L (0.0-4.9) 10/21/22 11:55 NT-Pro-B Natriuret Pep 6382 pg/mL (0-450) H 10/21/22 11:55 Total Protein 6.4 g/dL (6.6-8.7) L 10/21/22 11:55 Albumin 3.4 g/dL (3.5-5.2) L 10/21/22 11:55 Globulin 3.0 g/dL (1.3-4.6) 10/21/22 11:55 Procalcitonin 0.07 ng/mL (0-0.5) 10/21/22 11:55 TSH 0.99 uIU/mL (0.27-4.20) 10/21/22 11:55 Discharge Plan Discharge Patient Disposition: Home Clinical Impression: Hypoglycemia associated with diabetes, Adverse effect of insulin Condition: Stable Prescriptions: No Action magnesium oxide 250 mg magnesium tablet 250 mg PO DAILY ferrous sulfate 325 mg (65 mg iron) tablet,delayed release (DR/EC) 325 mg PO DAILY aspirin [Adult Low Dose Aspirin] 81 mg tablet,delayed release (DR/EC) 81 mg PO DAILY latanoprost 0.005 % drops 1 drp ophthalmic (eye) DAILY acetaminophen 325 mg tablet 325 mg PO QID PRN Levemir FlexPen 100 unit/mL (3 mL) insulin pen 15 unit SUBCUT DAILY mirtazapine 7.5 mg tablet 7.5 mg PO DAILY torsemide 20 mg Tablet 20 mg PO DAILY Hold Instructions: Resume on 08/06/22. clopidogrel [Plavix] 75 mg Tablet 75 mg PO DAILY allopurinol 100 mg Tablet 100 mg PO DAILY spironolactone 25 mg Tablet 12.5 mg PO DAILY levothyroxine 25 mcg Tablet 25 mcg PO DAILY isosorbide mononitrate 60 mg Tablet Extended Release 24 Hr 60 mg PO DAILY Discharge Orders: Discharge ED (Routine); Ordered 10/21/22 Ordered By: Fox Brizuela Referrals: Shante Montoya [Primary Care Provider] - Discharge Diet: Usual diet Discharge Activity: Resume usual activity Patient Instructions: Hypoglycemia in a Person with Diabetes (ED), What to Do if Your Blood Sugar is Low (ED) Activity Restrictions/Additional Instructions: Thank you for visiting the emergency department. You were seen and evaluated for altered mental status associated with a low blood sugar. We are pleased that this has resolved. I recommend follow-up with your primary care provider tomorrow as scheduled. Return to the emergency department for recurrent or worsening symptoms or anything else that you are concerned about and feel needs emergency department evaluation. Coding Level of Care Code ED Saxophone Teacher for Jaret Mcdermott
[2022-10-21 11:19] LABS: Glucose Point of Care 89 mg/dL (70-110)
--- NOTE | 2022-10-21 11:26 | ECG_ITS ---
[facility] Test Date: 2022-10-21 Pat Name: Ehsan Garcias Department: Room: Gender: Male Pharmacy Coordinator: : 1940 Requested By: Fox Brizuela Order Number: [id number] Gomez MD: Chilango Crisostomo M.D. Measurements Intervals [place] Rate: 56 P: 50 [place]: 185 QRS: 258 QRSD: 119 T: -36 QT: 459 QTc: 443 Interpretive Statements SINUS BRADYCARDIA RIGHT AXIS DEVIATION [QRS AXIS > 100] RIGHT BUNDLE BRANCH BLOCK [120+ ms QRS DURATION, UPRIGHT V1, 40+ ms S IN I/aVL/V4/V5/V6] INFERIOR MYOCARDIAL INFARCTION , OF INDETERMINATE AGE [40+ ms Q WAVE AND/OR ST/T ABNORMALITY IN II/aVF] ANTEROSEPTAL MYOCARDIAL INFARCTION , OF INDETERMINATE AGE [40+ ms Q WAVE IN V1-V4] Compared to ECG 07/28/2022 21:16:00 Right-axis deviation now present Myocardial infarct finding now present Sinus tachycardia no longer present Ventricular premature complex(es) no longer present Left anterior fascicular block no longer present Electronically Signed On 10-21-2022 11:48:44 CDT by Chilango Crisostomo M.D. [id number]
[2022-10-21 12:12] LABS: Basophils % 0.7 %; Eosinophils # 0.1 10^3/uL (0.0-0.8); Eosinophils % 1.6 %; Hematocrit 37.8 % (42.0-52.0); Lymphocytes # 0.7 10^3/uL (0.8-4.8); Lymphocytes % 12.6 %; Mean Corpuscular HGB Conc 31.7 g/dL (30.0-36.0); Mean Corpuscular Hemoglobin 33.4 pg (28.0-34.0); Mean Corpuscular Volume 105.3 fl (80-94); Mean Platelet Volume 10.1 fL (7.4-10.4); Monocytes # 0.5 10^3/uL (0.2-0.9); Monocytes % 9.7 %; Neutrophils # 4.04 10^3/uL (1.8-7.7); Neutrophils % 73.8 %; Nucleated Red Blood Cells % 0 %; Platelet Count 158 10^3/cmm (130-400); Red Blood Count 3.59 10^6/uL (4.1-5.3); Red Cell Distribution Width 14.8 % (12.1-15.1); White Blood Count 5.5 10^3/uL (4.0-10.0)
[2022-10-21 12:45] LABS: Troponin(5th) Baseline 42 ng/L (0-15)
[2022-10-21 12:51] LABS: NT Pro B Type Natriuretic Pept 6382 pg/mL (0-450); Procalcitonin 0.07 ng/mL (0-0.5); Thyroid Stimulating Hormone 0.99 uIU/mL (0.27-4.20)
[2022-10-21 12:56] LABS: Glucose Point of Care 151 mg/dL (70-110)
[2022-10-21 13:03] LABS: Alanine Aminotransferase 17 U/L (0-41); Albumin Level 3.4 g/dL (3.5-5.2); Alkaline Phosphatase 87 U/L (40-130); Blood Urea Nitrogen 15 mg/dL (8-23); Calcium 9.1 mg/dL (8.5-10.5); Carbon Dioxide 18 mmol/L (22-29); Chloride 103 mmol/L (98-107); Glucose 89 mg/dL (65-115); Osmolality Calculated 276 mOsm/kg (285-295); Sodium 133 mmol/L (136-145); Total Bilirubin 0.4 mg/dL (0.15-1.2); Total Protein 6.4 g/dL (6.6-8.7)
[2022-10-21 13:05] LABS: Anion Gap 17.3 (5-19)
[2022-10-21 13:06] LABS: Aspartate Amino Transferase 41 U/L (0-40); Potassium 5.3 mmol/L (3.5-5.1)
--- NOTE | 2022-10-21 13:32 | CTR_ITS ---
PROCEDURE INFORMATION: Exam: CT Head Without Contrast Exam date and time: 10/21/2022 1:40 PM Age: 82 years old Clinical indication: Other: Low blood glucose; Additional info: AMS TECHNIQUE: Imaging protocol: Computed tomography of the head without contrast. Radiation optimization: All CT scans at this facility use at least one of these dose optimization techniques: automated exposure control; mA and/or kV adjustment per patient size (includes targeted exams where dose is matched to clinical indication); or iterative reconstruction. REPORTING DATA: Count of CT and Cardiac NM exams in prior 12 months: This patient has received 3 known CTs and 0 known cardiac nuclear medicine studies in the 12 months prior to the current study. COMPARISON: CT neck w con* [id number] 08/15/2022 1:29 PM RADIATION DOSE METRICS: Total DLP (mGy-cm): 1066.18 FINDINGS: Brain: Generalized or diffuse atrophic or involutional change for age is seen, indicating volume loss. Periventricular leukomalacia or chronic small-vessel disease change also noted bilaterally. No findings to indicate large vessel ischemic change or infarct. No intracranial hemorrhage or hematoma is seen. No mass effect or shift of midline structures. Vascular calcification noted at the base of the brain. Cerebral ventricles: Ventricular prominence with atrophy. Paranasal sinuses: Visualized sinuses are unremarkable. No fluid levels. Mastoid air cells: Visualized mastoid air cells are well aerated. Bones/joints: Unremarkable. No acute fracture. Soft tissues: Unremarkable. CT/CT head wo con* [id number] IMPRESSION: 1. Generalized/diffuse atrophy or volume loss, along with periventricular chronic small-vessel disease change bilaterally. 2. No acute findings.
--- NOTE | 2022-10-21 14:22 | ECG_ITS ---
[facility] Test Date: 2022-10-21 Pat Name: Ehsan Garcias Department: Room: Gender: Male Teletype Adjuster: : 1940 Requested By: Fox Brizuela Order Number: [id number] Jason MD: Chilango Crisostomo M.D. Measurements Intervals [place] Rate: 60 P: 51 [place]: 195 QRS: -88 QRSD: 111 T: -9 QT: 457 QTc: 460 Interpretive Statements SINUS RHYTHM INCOMPLETE RIGHT BUNDLE BRANCH BLOCK [90+ ms QRS DURATION, TERMINAL R IN V1/V2, 40+ ms S IN I/aVL/V4/V5/V6] INFERIOR MYOCARDIAL INFARCTION , OF INDETERMINATE AGE [40+ ms Q WAVE AND/OR ST/T ABNORMALITY IN II/aVF] ANTEROSEPTAL MYOCARDIAL INFARCTION , OF INDETERMINATE AGE [40+ ms Q WAVE IN V1-V4] Compared to ECG 10/21/2022 11:26:42 Incomplete right bundle-branch block now present Sinus bradycardia no longer present Right-axis deviation no longer present Right bundle-branch block no longer present Myocardial infarct finding still present Electronically Signed On 10-21-2022 21:28:00 CDT by Chilango Crisostomo M.D. [id number]
[2022-10-21 15:14] VITALS: PULSE 60; RESP 14; O2SAT 98
[2022-10-21 15:54] LABS: Troponin 5 2HR 37.65 ng/L (0-15)
[2022-10-21 15:58] LABS: Troponin 5 2HR Delta -4.35 ABS# (0-10)
[2022-10-21 16:06] LABS: Glucose Point of Care 87 mg/dL (70-110)
== END 2022-10-21 16:34 | disposition home or self-care (01) ==
PROVIDERS: Emergency Provider Emergency Medicine; PCP Registered Nurse
DX: E11.649 Type 2 diabetes mellitus with hypoglycemia without coma (principal); T88.7XXA Unspecified adverse effect of drug or medicament, initial encounter; T38.3X5A Adverse effect of insulin and oral hypoglycemic [antidiabetic] drugs, initial encounter; Z79.82 Long term (current) use of aspirin; Z79.02 Long term (current) use of antithrombotics/antiplatelets; Z79.4 Long term (current) use of insulin; F17.210 Nicotine dependence, cigarettes, uncomplicated; Z85.72 Personal history of non-Hodgkin lymphomas; Z85.51 Personal history of malignant neoplasm of bladder; I25.10 Atherosclerotic heart disease of native coronary artery without angina pectoris; Z86.73 Personal history of transient ischemic attack (TIA), and cerebral infarction without residual deficits; E78.5 Hyperlipidemia, unspecified; I10 Essential (primary) hypertension; I25.2 Old myocardial infarction; Z95.1 Presence of aortocoronary bypass graft; X58.XXXA Exposure to other specified factors, initial encounter
CPT/HCPCS: 36415; 36416; 70450; 80053; 82962; 83880; 84145; 84443; 84484; 85025; 86140; 93005; 99285

== ENCOUNTER → 2022-10-30 14:39 | Outpatient (BNVA) | payer MEDICARE, SELFPAY | PROVIDERS: PCP Family Medicine; Visit Provider Specialist | DX: I25.10 Atherosclerotic heart disease of native coronary artery without angina pectoris (principal); I42.9 Cardiomyopathy, unspecified; E78.5 Hyperlipidemia, unspecified; I10 Essential (primary) hypertension; F17.210 Nicotine dependence, cigarettes, uncomplicated; Z79.82 Long term (current) use of aspirin | CPT/HCPCS: 99214 ==

== ENCOUNTER 2022-11-12 10:04 | Oncology outpatient (recurring) (ONCR) | payer MEDICARE, SELFPAY ==
[2022-11-12 11:10] LABS: Basophils # 0.1 10^3/uL (0.0-0.1); Basophils % 0.9 %; Eosinophils # 0.3 10^3/uL (0.0-0.8); Eosinophils % 5.5 %; Hematocrit 33.5 % (42.0-52.0); Hemoglobin 10.6 g/dL (11.7-16.6); Lymphocytes # 0.6 10^3/uL (0.8-4.8); Lymphocytes % 11.2 %; Mean Corpuscular HGB Conc 31.6 g/dL (30.0-36.0); Mean Corpuscular Hemoglobin 32.7 pg (28.0-34.0); Mean Corpuscular Volume 103.4 fl (80-94); Mean Platelet Volume 8.9 fL (7.4-10.4); Monocytes # 0.8 10^3/uL (0.2-0.9); Monocytes % 14.1 %; Neutrophils # 3.69 10^3/uL (1.8-7.7); Neutrophils % 65.6 %; Nucleated Red Blood Cells % 0 %; Platelet Count 182 10^3/cmm (130-400); Red Blood Count 3.24 10^6/uL (4.1-5.3); Red Cell Distribution Width 15.3 % (12.1-15.1); White Blood Count 5.6 10^3/uL (4.0-10.0)
[2022-11-12 11:31] LABS: Alanine Aminotransferase 7 U/L (0-41); Albumin Level 3.5 g/dL (3.5-5.2); Alkaline Phosphatase 123 U/L (40-130); Anion Gap 15.3 (5-19); Aspartate Amino Transferase 18 U/L (0-40); Blood Urea Nitrogen 20 mg/dL (8-23); Calcium 8.8 mg/dL (8.5-10.5); Carbon Dioxide 23 mmol/L (22-29); Chloride 104 mmol/L (98-107); Globulin 2.7 g/dL (1.3-4.6); Glucose 195 mg/dL (65-115); Lactate Dehydrogenase 600 U/L (135-225); Osmolality Calculated 292 mOsm/kg (285-295); Potassium 5.3 mmol/L (3.5-5.1); Sodium 137 mmol/L (136-145); Total Bilirubin 0.5 mg/dL (0.15-1.2); Total Protein 6.2 g/dL (6.6-8.7)
== END 2022-12-05 23:59 | disposition home or self-care (01) ==
PROVIDERS: Nurse Practitioner Family; PCP Family Medicine; Visit Provider Internal Medicine Hematology & Oncology
DX: C82.38 Follicular lymphoma grade IIIa, lymph nodes of multiple sites (principal); Z91.14 Patient's other noncompliance with medication regimen; F17.210 Nicotine dependence, cigarettes, uncomplicated; Z85.51 Personal history of malignant neoplasm of bladder; Z92.21 Personal history of antineoplastic chemotherapy; Z92.3 Personal history of irradiation; Z95.828 Presence of other vascular implants and grafts; R53.0 Neoplastic (malignant) related fatigue; E16.2 Hypoglycemia, unspecified
CPT/HCPCS: 36591; 80053; 83615; 85025; 99214

== ENCOUNTER → 2022-11-20 11:15 | Outpatient (BNVA) | payer MEDICARE, SELFPAY | PROVIDERS: PCP Family Medicine; Visit Provider Internal Medicine Hematology & Oncology | DX: C82.30 Follicular lymphoma grade IIIa, unspecified site (principal) | CPT/HCPCS: 80053; 85025 ==

== ENCOUNTER 2022-11-23 12:36 | Outpatient (CLI) | payer MEDICARE, SELFPAY ==
--- NOTE | 2022-11-23 12:30 | CT_ITS ---
WS: [id number] CT CHEST, ABDOMEN AND PELVIS WITH CONTRAST HISTORY: Restaging, history of lymphoma. Colon resection. TECHNIQUE: Contiguous 5 mm axial imaging performed through the chest, abdomen and pelvis with IV cont rast, oral contrast has been provided. Coronal and sagittal reformats chest. Coronal and sagittal ref ormats through the abdomen and pelvis. All CT scans at [facility] use at least one of these d ose optimization techniques: automated exposure control; mA and/or kV adjustment per patient size (in cludes targeted exams where dose is matched to clinical indication); or iterative reconstruction. CONTRAST: Omnipaque 350; 100 mL IV. DLP: 609.77 mGy.cm COMPARISON: 08/15/2022, 07/28/2022, PET/CT 05/16/[address]: Hyperinflated lungs with centrilobular emphysema. There is additional bilateral honeycombin g greatest at the lung bases. Consistent with interstitial fibrosis. No mass is identified. There is a small nodule measuring 7 mm subpleural LEFT lower lobe. This was not present on the prior study. No supraclavicular lymph nodes. No mediastinal or hilar lymph nodes. Surgical clips in the RIGHT axilla from prior rajni dissection likely. Right-sided Mediport. Mild atherosclerosis aorta. Dilated pulmon shefali artery measuring up to 4.1 cm. Mild LEFT heart enlargement. No pericardial or pleural effusions. Anterior LEFT chest wall mass contacting and encasing the third and fourth and fifth ribs. Mass exten ds over a length of 8.9 cm and transversely x 8.4 and anteroposterior x 2.7 cm. There is extension in to the chest wall with involvement of the pleura especially around of the third and fourth ribs. No a dditional chest wall lesions are identified. New finding since 08/15/2022. Abdomen CT: Small amount of oral contrast in the distal esophagus. Normal liver. No metastatic lesion s. Normally distended gallbladder with cholelithiasis. Normal size spleen. Moderate atrophy of the pa ncreas. No adrenal mass. Renal atrophy with cortical scarring. No obstruction. Lower pole LEFT renal cyst 1.7 cm. Well-distended stomach. No small bowel obstruction. Surgical anastomotic site in the RIGHT abdomen is patent. No mass identified. No lymphadenopathy or ascites. Pelvic CT: No free fluid. History of cystectomy. RIGHT lower quadrant ileal urinary diversion. Ileal loop is not distended. CT/CT chest abdpel w/*[id number] IMPRESSION: 1. LEFT chest wall mass measures 8.4 x 2.7 cm and extends over length of 8.9 c m. There is involvement of the intercostal muscles, and pleura centered involvi ng the third, fourth and fifth ribs. New since 08/15/2022. 2. No adenopathy identified within the chest, abdomen or pelvis. 3. New 7 mm subpleural nodule LEFT lower lobe. Very nonspecific. May be an new metastatic site or benign. 4. No ascites. 5. Pulmonary fibrosis and emphysema. 6. Cholelithiasis without acute cholecystitis. 7. Pulmonary hypertension. 8. Prior urinary ileal diversion.
[2022-11-23] MEDS: iohexol 350 mg/mL 500 mL Btl (per mL) PO (13:04)
== END 2022-11-23 12:37 | disposition home or self-care (01) ==
LOC: RAD 12:40
PROVIDERS: PCP Family Medicine; Visit Provider Nurse Practitioner Family
DX: C82.30 Follicular lymphoma grade IIIa, unspecified site (principal); R22.2 Localized swelling, mass and lump, trunk; R91.1 Solitary pulmonary nodule; J84.10 Pulmonary fibrosis, unspecified; J43.9 Emphysema, unspecified; K80.20 Calculus of gallbladder without cholecystitis without obstruction; I27.20 Pulmonary hypertension, unspecified; Z90.49 Acquired absence of other specified parts of digestive tract
CPT/HCPCS: 71260; 74177; Q9967

== ENCOUNTER 2022-12-18 08:33 | Outpatient (CLI) | payer MEDICARE, SELFPAY ==
--- NOTE | 2022-12-18 09:30 | US_ITS ---
WS: [id number] ULTRASOUND GUIDED LEFT CHEST WALL MASS BIOPSY CLINICAL INFORMATION: Left Chest Wall Mass TECHNIQUE: Ultrasound-guided LEFT chest wall mass biopsy FINDINGS: The procedure including risks, benefits, and complications were discussed with the patient who agreed to proceed. Timeout was performed. Using sterile technique patient was prepped and draped in usual sterile fashion. After 1% lidocaine, using ultrasound guidance, a 20-gauge Temno biopsy david ce was advanced into LEFT chest wall mass. 3 passes were made. Next, 18-gauge Temno biopsy device was selected and 5 additional samples were obtained. No immediate complications. US/US biopsy lung [id number] IMPRESSION: Uncomplicated ultrasound-guided LEFT chest wall mass biopsy
[2022-12-19 13:30] LABS: Lymphoma Profile (BBPL) See Report
== END 2022-12-18 08:34 | disposition home or self-care (01) ==
PROVIDERS: PCP Family Medicine; Visit Provider Nurse Practitioner Family
DX: C82.39 Follicular lymphoma grade IIIa, extranodal and solid organ sites (principal); R22.2 Localized swelling, mass and lump, trunk; Z85.51 Personal history of malignant neoplasm of bladder
CPT/HCPCS: 32408; 88184; 88185; 88307; 88342

== ENCOUNTER 2023-01-04 11:35 | Oncology outpatient (recurring) (ONCR) | payer MEDICARE, SELFPAY ==
[2022-12-10 14:52] LABS: Basophils # 0.1 10^3/uL (0.0-0.1); Basophils % 0.9 %; Eosinophils # 0.2 10^3/uL (0.0-0.8); Eosinophils % 4.4 %; Hematocrit 35.9 % (42.0-52.0); Hemoglobin 11.7 g/dL (11.7-16.6); Lymphocytes # 0.6 10^3/uL (0.8-4.8); Lymphocytes % 10.7 %; Mean Corpuscular HGB Conc 32.6 g/dL (30.0-36.0); Mean Corpuscular Hemoglobin 33.4 pg (28.0-34.0); Mean Corpuscular Volume 102.6 fl (80-94); Mean Platelet Volume 8.6 fL (7.4-10.4); Monocytes # 0.7 10^3/uL (0.2-0.9); Monocytes % 12.4 %; Neutrophils # 3.71 10^3/uL (1.8-7.7); Neutrophils % 68.6 %; Nucleated Red Blood Cells % 0 %; Platelet Count 193 10^3/cmm (130-400); Red Cell Distribution Width 15.5 % (12.1-15.1); White Blood Count 5.4 10^3/uL (4.0-10.0)
[2022-12-10 15:11] LABS: Alanine Aminotransferase 15 U/L (0-41); Albumin Level 3.9 g/dL (3.5-5.2); Alkaline Phosphatase 108 U/L (40-130); Anion Gap 19.1 (5-19); Aspartate Amino Transferase 26 U/L (0-40); Blood Urea Nitrogen 17 mg/dL (8-23); Calcium 9.6 mg/dL (8.5-10.5); Carbon Dioxide 19 mmol/L (22-29); Chloride 101 mmol/L (98-107); Globulin 2.8 g/dL (1.3-4.6); Glucose 226 mg/dL (65-115); Lactate Dehydrogenase 373 U/L (135-225); Osmolality Calculated 287 mOsm/kg (285-295); Potassium 5.1 mmol/L (3.5-5.1); Sodium 134 mmol/L (136-145); Total Bilirubin 0.4 mg/dL (0.15-1.2); Total Protein 6.7 g/dL (6.6-8.7)
--- NOTE | 2022-12-24 13:53 | N.ONRAD NP_ITS ---
Radiation Oncology Consultation Patient Name: Ehsan Garcias Date of : 1940 Date of Service: 12/24/2022 Attending Physician: Jeovanny Reyes M.D. Ehsan Garcias was seen in consultation this morning at the request of Mickie Blanton M.D. for consideration of palliative radiotherapy in the management of a high-grade follicular lymphoma. He was diagnosed with a grade 3A follicular lymphoma in April 2022 following a biopsy of a left cervical lymph node. Initial staging CT scan demonstrated a left anterior chest wall mass. Chemotherapy (records have been requested by medical oncology) was started but was discontinued in consideration of patient intolerance. A thoracoabdominopelvic CT scan (independently reviewed in [facility]) ordered on November 23, 2022 described an 8.9 (CC) cm x 8.4 cm (TR) x 2.7 cm (AP) mass within the left chest wall encasing the third through fifth ribs. He was referred for palliative radiotherapy. I discussed with Mr. Garcias the role for palliative radiotherapy. I would recommend a 1-week course of radiation therapy. A CT scan will be acquired for radiotherapy planning prior to beginning treatment to delineate the gross tumor volume. The potential toxicities of radiotherapy were reviewed. The patient has verbalized understanding would like to proceed as recommended. His medical treatment plan has been discussed with Mickie Blantno M.D. Signed by: Dr. Jeovanny Reyes 12/24/2022 2:03:18 PM
--- NOTE | 2022-12-27 | CT_ITS ---
Radiation Therapy Planning CT images; total exam DLP: 345.44 mGy-cm MTDD
== END 2023-01-04 23:59 | disposition home or self-care (01) ==
PROVIDERS: Nurse Practitioner Family; PCP Family Medicine; Visit Provider Internal Medicine Hematology & Oncology
DX: Z51.0 Encounter for antineoplastic radiation therapy (principal); C82.38 Follicular lymphoma grade IIIa, lymph nodes of multiple sites; F17.210 Nicotine dependence, cigarettes, uncomplicated; R63.4 Abnormal weight loss; Z68.21 Body mass index [BMI] 21.0-21.9, adult; Z91.14 Patient's other noncompliance with medication regimen; Z85.51 Personal history of malignant neoplasm of bladder; Z92.21 Personal history of antineoplastic chemotherapy; Z92.3 Personal history of irradiation; Z95.828 Presence of other vascular implants and grafts
CPT/HCPCS: 36591; 77290; 77295; 77300; 77334; 77387; 77412; 80053; 83615; 85025; 88374; 99205; 99214; J1642

== ENCOUNTER 2023-01-22 12:58 | Oncology outpatient (recurring) (ONCR) | payer MEDICARE, SELFPAY ==
--- NOTE | 2023-01-09 14:54 | N.ONRD TS_ITS ---
Radiation OncologyTreatment Summary Patient Name: Ehsan Garcias Date of : 1940 Date of Service: 01/09/2023 Attending Physician: Jeovanny Reyes M.D. Ehsan Garcias has completed palliative radiotherapy for the management of a high-grade follicular lymphoma. He was diagnosed with a grade 3A follicular lymphoma in April 2022 following a biopsy of a left cervical lymph node. Initial staging CT scan demonstrated a left anterior chest wall mass. Chemotherapy was started but was discontinued in consideration of patient intolerance. A thoracoabdominopelvic CT scan ordered on November 23, 2022 described an 8.9 (CC) cm x 8.4 cm (TR) x 2.7 cm (AP) mass within the left chest wall encasing the third through fifth ribs. Daily radiotherapy was administered between the dates of January 02, 2023 through January 09, 2023. A prescribed dose of 20 Gy was delivered in 5 fractions encompassing 8 elapsed days. The left chest wall mass was treated utilizing a 3-dimensional conformal radiotherapy plan with an opposed tangential portal field design. The OLIVARES field utilized a 303??? gantry angle with a collimator angle of 0???. The field size measured 5.9 cm x 4 cm within the X-direction and 7.2 cm x 6.7 cm within the Y-direction. The SSD measured 93.3 cm with the field delivering 219 monitor units. The LPO port employed a gantry angle of 127??? and a collimator angle of 0???. The measured field size was 3.8 cm x 5.8 cm within X-direction and 7.2 cm x 6.7 cm within the Y-direction. The measured SSD was 92.3 cm with the field allocating 224 monitor units. All treatments were performed with the ZowPow linear accelerator and an isocentric technique. The dose was calculated by Anisotropic Analytic Algorithm. Photon energies of 15 MV were prescribed with the plan normalized to deliver 100% of the prescription dose to 95% of the planning target volume. Signed by: Dr. Jeovanny Reyes 01/09/2023 2:53:02 PM
--- NOTE | 2023-01-09 15:26 | ONCRAD TMN_ITS ---
Radiation Oncology Treatment Management Note Patient Name: Ehsan Garcias Date of : 1940 Date of Service: 01/09/2023 Attending Physician: Jeovanny Reyes M.D. Ehsan Garcias is an 82 year-old white male diagnosed with a high-grade follicular lymphoma. He was diagnosed with a grade 3A follicular lymphoma in April 2022 following a biopsy of a left cervical lymph node. Initial staging CT scan demonstrated a left anterior chest wall mass. Chemotherapy was started but was discontinued in consideration of patient intolerance. A thoracoabdominopelvic CT scan ordered on November 23, 2022 described an 8.9 (CC) cm x 8.4 cm (TR) x 2.7 cm (AP) mass within the left chest wall encasing the third through fifth ribs. The patient has received 20 Gy of a prescribed 20 Gy to the left chest wall mass with a 3-dimensional conformal radiotherapy plan utilizing tangential treatment javier. Upon review of systems, he continues to describe chest wall pain. On physical examination, the patient weighed 118 lbs. His temperature was 95.6 ???F and the blood pressure was 140/74 mmHg. His pulse was 108 bpm and his respiratory rate was 18. There was no erythema of the skin within the treatment javier. Palliative radiotherapy completed today. Signed by: Dr. Jeovanny Reyes 01/09/2023 3:25:08 PM
[2023-01-22 13:00] VITALS: BP 106/62; PULSE 102; RESP 18; TEMP 37.1; O2SAT 90
[2023-01-22 13:18] LABS: Hematocrit 34.1 % (42.0-52.0); Hemoglobin 11.4 g/dL (11.7-16.6); Mean Corpuscular HGB Conc 33.4 g/dL (30.0-36.0); Mean Corpuscular Hemoglobin 33.6 pg (28.0-34.0); Mean Corpuscular Volume 100.6 fl (80-94); Platelet Count 126 10^3/cmm (130-400); Red Blood Count 3.39 10^6/uL (4.1-5.3); Red Cell Distribution Width 13.6 % (12.1-15.1); White Blood Count 6.7 10^3/uL (4.0-10.0)
[2023-01-22 13:36] LABS: Alanine Aminotransferase 9 U/L (0-41); Albumin Level 3.2 g/dL (3.5-5.2); Alkaline Phosphatase 94 U/L (40-130); Anion Gap 18.9 (5-19); Aspartate Amino Transferase 20 U/L (0-40); Blood Urea Nitrogen 12 mg/dL (8-23); Calcium 9.5 mg/dL (8.5-10.5); Carbon Dioxide 21 mmol/L (22-29); Chloride 103 mmol/L (98-107); Globulin 2.4 g/dL (1.3-4.6); Glucose 326 mg/dL (65-115); Osmolality Calculated 298 mOsm/kg (285-295); Potassium 4.9 mmol/L (3.5-5.1); Sodium 138 mmol/L (136-145); Total Bilirubin 0.3 mg/dL (0.15-1.2); Total Protein 5.6 g/dL (6.6-8.7)
[2023-01-22 13:58] LABS: Slide Review Slide Review Perform
[2023-01-22 15:23] LABS: Absolute Segmented Neutrophil 5.8 10/cmm (1.6-7.1); Band Neutrophils Absolute 0.3 10^3/cmm (0.0-1.2); Eosinophils 1 %; Lymphocytes 1 %; Lymphocytes Absolute 0.3 10^3/cmm (1.2-3.4); Monocytes Absolute 0.3 10^3/cmm (0.1-0.6); Platelet Estimate Decreased (Normal); Segmented Neutrophils 86 %; Total Cells Counted 100 (0-100)
== END 2023-02-04 23:59 | disposition home or self-care (01) ==
PROVIDERS: Internal Medicine Hematology & Oncology; PCP Family Medicine; Visit Provider Specialist
DX: C82.38 Follicular lymphoma grade IIIa, lymph nodes of multiple sites (principal); C82.30 Follicular lymphoma grade IIIa, unspecified site; D64.9 Anemia, unspecified; D69.6 Thrombocytopenia, unspecified; R73.9 Hyperglycemia, unspecified; Z79.899 Other long term (current) drug therapy; Z92.3 Personal history of irradiation; Z85.51 Personal history of malignant neoplasm of bladder
CPT/HCPCS: 36591; 77336; 77412; 80053; 85007; 85025; 99024; 99214; J1642

== ENCOUNTER 2023-02-18 10:45 | Oncology outpatient (recurring) (ONCR) | payer MEDICARE, SELFPAY | END 2023-03-07 23:59 | disposition home or self-care (01) | PROVIDERS: PCP Family Medicine; Visit Provider Radiology Radiation Oncology | DX: Z45.2 Encounter for adjustment and management of vascular access device | CPT/HCPCS: J1642 ==

== ENCOUNTER 2023-02-18 11:40 | Inpatient (IN) | payer MEDICARE, SELFPAY ==
[2023-02-18] VITALS (11 sets, daily range): BP systolic 134–159; BP diastolic 75–99; PULSE 96–108; RESP 17–32; TEMP 36.2–36.6; O2SAT 98–100; BMI 17.9
--- NOTE | 2023-02-18 11:56 | W.ED.SOB ---
HPI - SOB/Dyspnea General: Chief Complaint: Shortness of Breath/Dyspnea Stated Complaint: physician sent, possible pneumonia Time Seen by Provider: 02/18/23 11:49 History of Present Illness: HPI Narrative: 82-year-old male with complex medical history including lymphoma, bladder cancer status post ileostomy patient was seen and evaluated the at a local clinic for routine port examination and flushing. While in the clinic patient was found to have low oxygenation on room air and was sent to emergency room for possible pneumonia. Family reveals that patient had a cough for the past few days. Described the cough as productive cough and blood. Son-in-law reviews that patient had a pulse ox of 75 at home today. Patient is any chest pain but reveals diffuse body aches and described the pain as aching sensation with severity of 5 out of 10. Pain is relieved with Tylenol mostly. No sick contact or recent foreign travel. Associated symptoms: Deny chest pain, fever(s), lightheadedness, orthopnea, palpitations or syncope Review of Systems General: Reports: 10 or more systems reviewed and unremarkable except in HPI and below Const: Reports: malaise; Denies: fever(s), body aches, change in weight or fatigue Card: Reports: dyspnea on exertion; Denies: chest pain, palpitations, irregular heart rhythm, edema, swelling of feet/ankles, lightheadedness, syncope, pre-syncope, orthopnea or acrocyanosis Resp: Reports: dyspnea and productive cough : Denies: flank pain, hematuria, genital pain or testicular pain PFS ED PFSH: Medical History (Updated 02/21/23 @ 16:15 by Johan Virk MD) Bifascicular block CAD (coronary artery disease) Cardiomyopathy Echo at 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, treated with BCG induction therapy, f/u cystoscopy and biopsy showed muscle invasion, received cisplatin/gemcitabine in January 2017 with progression, underwent radical cystectomy/prostatectomy with ileal condiut in February 2017, T2b, N0 History of CVA (cerebrovascular accident) History of diabetic ketoacidosis and history of hypoglycemia History of kidney stones History of RI (myocardial infarction) History of prostate cancer incidental finding of 3mm lesion at time of surgery for bladder cancer, had prostatectomy Hyperlipidemia Hypertension Hypothyroidism Surgical History (Updated 02/18/23 @ 16:39 by Juhi Sanchez MD) H/O transurethral resection of bladder tumor (TURBT) (~2015) History of heart artery stent History of urostomy Hx of total cystectomy (~2016) S/P CABG (coronary artery bypass graft) x2 S/P colectomy S/P ileal conduit (~2016) S/P prostatectomy (~2016) Family History Father CAD (coronary artery disease) Mother Medication overdose Social History (Updated 02/18/23 @ 16:27 by Juhi Sanchez MD) Smoking and tobacco status: current every day smoker cigarettes Packs smoked per day: 0.25 [ Other cigarette details: Quit for 10 years, then restarted] Alcohol intake: current Alcohol intake frequency: other Alcohol type: hard liquor Alcohol use comment: Previously drank regularly, now rarely drinks Substance/Drug Use: never Caregiver/support person: Yes Lives independently: No Household members: children Marital status: / Physical Exam Const: COMMON NORMALS: patient oriented x3 and alert; apparent distress (very thin ) GENERAL APPEARANCE: well kempt HENMT: COMMON NORMALS: normocephalic, atraumatic, hearing grossly normal bilaterally, external ears normal, EAC's normal, TM's normal bilaterally, Normal external nose present, Normal nasal mucous membranes and turbinates present, moist oral mucous membranes, oropharynx normal, dentition normal and gingiva normal HEAD & SCALP: normocephalic and atraumatic NOSE: Normal external nose present and Normal nasal mucous membranes and turbinates present EXTERNAL EAR: Yes external ears normal EXTERNAL AUDITORY CANAL: EAC's normal TYMPANIC MEMBRANE: TM's normal bilaterally Eye: COMMON NORMALS: Equal, round and reactive pupils present, EOMs intact bilaterally, conjunctivae normal, no scleral icterus, no papilledema, normal visual javier by confrontation and fundi normal bilaterally CONJUNCTIVA: Yes conjunctivae normal PUPIL: Yes Equal, round and reactive pupils present DIRECT OPHTHALMOSCOPY: Yes no papilledema and Yes fundi normal bilaterally Neck/C-Spine: COMMON NORMALS: no JVD GENERAL: No normal visual inspection, Yes trachea midline, No anterior neck swelling, No torticollis and No JVD Chest: COMMONS NORMALS: normal inspection of the chest, normal palpation of entire chest wall, normal inspection of the breasts and normal palpation of the breasts Breast/axilla inspection: Yes normal inspection of the breasts BREAST/AXILLA PALPATION: Yes normal palpation of the breasts Resp: COMMON NORMALS: negative for No retractions and negative for No use of accessory muscles EFFORT & INSPECTION: No symmetric chest movement, No abnormal respiratory pattern, No tachypneic, No respiratory distress, No decreased respiratory effort, No pursed lip breathing, No grunting, No stridor, Yes audible wheezes, No tracheal deviation, No tripod positioning and No prolonged expiratory phase Cardio: COMMON NORMALS: no JVD and Peripheral pulses 2+ throughout JUGULAR VENOUS DISTENTION: no JVD PALPATION: normal PMI RATE: tachycardic PERIPHERAL PULSES: Peripheral pulses 2+ throughout GI: INSPECTION: No Abdominal wall edema, No Anasarca and Yes other (urostomy in place ) Neuro: COMMON NORMALS: patient oriented x3 SENSORIUM/ORIENTATION: Yes alert Psych: APPEARANCE: Yes well kempt ACTIVITY/MOTOR BEHAVIOR: Yes appropriate eye contact MOOD & AFFECT: Yes Flat affect present, No hostile affect, No expansive affect and No Blunted affect present Course Reevaluation(s): Reevaluation #1: Upon reassessment patient made stable emergency room. Son-in-law reveals the patient stopped taking most of his medications including Plavix and aspirin about 2 or 3 months ago. Patient unable to give any specific reason why he stopped taking his medication. Consultations: Consultation #1: Discussed patient with the hospitalist Dr. sanchez she gladly accept patient for admission. Vital Signs: Vital signs: Vital Signs Temperature 98.3 F 02/22/23 00:43 Pulse Rate 81 02/22/23 00:43 Respiratory Rate 17 02/22/23 00:43 Blood Pressure 126/63 02/22/23 00:43 Pulse Oximetry 99 02/22/23 00:43 Oxygen Delivery Me thod Room Air 02/21/23 20:17 MDM - SOB/Dyspnea Medical Decision Making Patient made comfortable emergency room. Patient extensive work-up including CBC, CMP, chest x-ray, BNP and blood culture. I reviewed the chest x-ray myself. Because the treatment plan with son-in-law and daughter. He was given IV fluid and IV antibiotics. Differential Diagnosis Likely acute exacerbation of chronic obstructive airways disease, congestive heart failure, community acquired pneumonia, asthma with exacerbation and pulmonary embolism Lab Data 02/21/23 18:29 02/21/23 02:30 Labs/Radiology: Radiology Impressions Chest X-Ray 02/18/23 11:58 IMPRESSION: No acute findings. Emphysema. Chest CT 02/19/23 17:06 IMPRESSION: 1. Coronary artery atherosclerotic calcifications. 2. Emphysematous changes. 3. Lingular lobe 2.5 cm suspected nodule, series 3, image 32, new compared to prior exam, consider correlation with CT with intravenous contrast to evaluate for distinction from the adjacent vessels. 4. Left lower lobe 2.3 cm nodule abutting the pleural surface, new compared to prior exam. Left lower lobe 11.3 mm pulmonary nodule, new compared to prior exam. Highly suspicious nodule(s). Consider non-emergent PET/CT, or tissue sampling.(Reference: Bartolo) 5. Left anterior chest wall again seen measuring up to at least 8.9 cm, similar to prior exam. Finding is potentially concerning for underlying malignancy. 6. Emphysematous changes with bilateral largely basilar honeycombing with interstitial fibrotic changes. 7. Cholelithiasis. REFERENCES: Bartolo Brasher, et al. Guidelines for Management of Incidental Pulmonary Nodules Detected on CT Images: From the Fleischner Society 2017. Radiology. 2017;284(1):228-243. Abdomen/Pelvis CT 02/21/23 12:06 IMPRESSION: No acute finding. Laboratory Results WBC 6.2 10^3/uL (4.0-10.0) 02/19/23 00:37 RBC 3.11 10^6/uL (4.1-5.3) L 02/19/23 00:37 Hgb 10.2 g/dL (11.7-16.6) L 02/19/23 00:37 Hct 31.5 % (42.0-52.0) L 02/19/23 00:37 MCV 101.3 fl (80-94) H D 02/19/23 00:37 MCH 32.8 pg (28.0-34.0) 02/19/23 00:37 MCHC 32.4 g/dL (30.0-36.0) D 02/19/23 00:37 RDW 13.4 % (12.1-15.1) 02/19/23 00:37 Plt Count 111 10^3/cmm (130-400) L 02/19/23 00:37 MPV 10.8 fL (7.4-10.4) H 02/19/23 00:37 Neut % (Auto) 74.1 % 02/18/23 12:50 Lymph % (Auto) Not Reportable 02/19/23 00:37 [place] % (Auto) Not Reportable 02/19/23 00:37 Eos % (Auto) 2.4 % 02/18/23 12:50 Baso % (Auto) 0.8 % 02/18/23 12:50 Neut # (Auto) 4.43 10^3/uL (1.8-7.7) 02/18/23 12:50 Lymph # (Auto) Not Reportable 02/19/23 00:37 [place] # (Auto) Not Reportable 02/19/23 00:37 Eos # (Auto) 0.2 10^3/uL (0.0-0.8) 02/18/23 12:50 Baso # (Auto) 0.1 10^3/uL (0.0-0.1) 02/18/23 12:50 Nucleated RBC % (auto) 0 % 02/18/23 12:50 Total Counted 100 (0-100) 02/19/23 00:37 Atypical Lymphs % Not Reportable 02/19/23 00:37 Segmented Neutrophils 80 % 02/19/23 00:37 Abs Segm Neuts (Man) 5.0 10/cmm (1.6-7.1) 02/19/23 00:37 Band Neutrophils Not Reportable 02/19/23 00:37 Lymphocytes (Manual) 8 % 02/19/23 00:37 Monocytes (Manual) 9.0 % 02/19/23 00:37 Absolute Monocytes 0.6 10^3/cmm (0.1-0.6) 02/19/23 00:37 Eosinophils (Manual) 1 % 02/19/23 00:37 Absolute Eosinophils 0.0 10^3/cmm (0.0-0.7) 02/19/23 00:37 Basophils (Manual) 0.0 % 02/19/23 00:37 Absolute Basophils 0.0 10^3/cmm (0.0-0.2) 02/19/23 00:37 Metamyelocytes 2.0 % 02/19/23 00:37 Nucleated RBCs # 0.0 /100WBC 02/18/23 12:50 Hypersegmented Polys 2+ 02/19/23 00:37 Platelet Estimate Decreased (Normal) 02/19/23 00:37 PT 16.70 SECONDS (12.1-14.9) H 02/19/23 04:20 INR 1.31 (0.8-1.2) H 02/19/23 04:20 APTT 36.7 SECONDS (23.9-36.7) 02/19/23 04:20 D-Dimer 6.68 ug/mIFEU (0-0.59) H 02/19/23 04:20 Specimen Type Art 02/18/23 12:18 Sample Site Lb 02/18/23 12:18 ABG pH 7.42 (7.35-7.45) 02/18/23 12:18 ABG pCO2 23.8 mmHg (35-45) L 02/18/23 12:18 ABG pO2 71.7 mmHg (80.0-100.0) L 02/18/23 12:18 ABG HCO3 15.6 mmol/L (22-26) L 02/18/23 12:18 ABG O2 Saturation 95.1 02/18/23 12:18 ABG Base Excess -7.2 mmol/L (-2.0-2.0) L 02/18/23 12:18 Darin Test N/a 02/18/23 12:18 A-a O2 Gradient 45.6 mmHg (5-10) H 02/18/23 12:18 Hematocrit 36.6 % (42-52) L 02/18/23 12:18 Hgb O2 Saturation 93.1 % (95-100) L 02/18/23 12:18 Carboxyhemoglobin 1.8 %THgb (0.4-20.1) 02/18/23 12:18 Methemoglobin 0.3 % (0.4-1.5) L 02/18/23 12:18 Total Hemoglobin 11.9 g/dL (14-18) L 02/18/23 12:18 Sodium 136.0 mmol/L (131-143) 02/18/23 12:18 Potassium 5.3 mmol/L (3.5-5.0) H 02/18/23 12:18 Glucose 282.0 mg/dL (70-115) H 02/18/23 12:18 Ionized Calcium 1.4 mmol/L (1.1-1.4) 02/18/23 12:18 O2 Delivery Device Room air 02/18/23 12:18 FiO2 21.0 % 02/18/23 12:18 Hand Bootmaker ID Amh 02/18/23 12:18 Sodium 136 mmol/L (136-145) 02/19/23 00:37 Potassium 4.7 mmol/L (3.5-5.1) 02/19/23 00:37 Chloride 104 mmol/L (98-107) 02/19/23 00:37 Carbon Dioxide 19 mmol/L (22-29) L 02/19/23 00:37 Anion Gap 17.7 (5-19) 02/19/23 00:37 BUN 37 mg/dL (8-23) H 02/19/23 00:37 Creatinine 2.4 mg/dL (0.7-1.2) H 02/19/23 00:37 GFR Calculation Not Reportable 02/19/23 00:37 Glucose 149 mg/dL (65-115) H 02/19/23 00:37 POC Glucose 214 mg/dL (70-110) H 02/19/23 16:57 Calculated Osmolality 293 mOsm/kg (285-295) 02/19/23 00:37 Lactic Acid 2.0 mmol/L (0.5-2.2) 02/18/23 12:50 Uric Acid 6.8 mg/dL (3.4-7.0) 02/18/23 12:50 Calcium 9.6 mg/dL (8.5-10.5) 02/19/23 00:37 Phosphorus 3.7 mg/dL (2.5-4.5) 02/19/23 00:37 Magnesium 2.1 mg/dL (1.7-2.3) 02/19/23 00:37 Total Bilirubin 0.4 mg/dL (0.15-1.2) 02/18/23 12:50 AST 12 U/L (0-40) 02/18/23 12:50 ALT < 5 U/L (0-41) 02/18/23 12:50 Alkaline Phosphatase 68 U/L (40-130) 02/18/23 12:50 Creatine Kinase 28 U/L (39-308) L 02/19/23 04:20 Troponin T Baseline 89 ng/L (0-15) H 02/18/23 18:45 Troponin T 120 Minute 87.17 ng/L (0-15) H 02/18/23 21:03 Delta Troponin T -1.83 ABS# (0-10) L 02/18/23 21:03 Troponin T Hi Sens 6Hr 91.44 ng/L (0-15) H 02/19/23 00:37 Troponin T Hi Sens 6Hr Delta 2.44 ng/L (0-12) 02/19/23 00:37 C-Reactive Protein 137.6 mg/L (0.0-4.9) H 02/19/23 04:20 NT-Pro-B Natriuret Pep 9786 pg/mL (0-450) H 02/18/23 12:50 Total Protein 6.4 g/dL (6.6-8.7) L 02/18/23 12:50 Albumin 3.3 g/dL (3.5-5.2) L 02/18/23 12:50 Globulin 3.1 g/dL (1.3-4.6) 02/18/23 12:50 Procalcitonin 0.30 ng/mL (0-0.5) 02/19/23 04:20 TSH 4.20 uIU/mL (0.27-4.20) 02/18/23 12:50 Urine Color Yellow (Yellow) 02/18/23 15:14 Urine Appearance Clear (CLEAR) 02/18/23 15:14 Urine pH 7 (5-7) 02/18/23 15:14 Ur Specific [place] 1.005 (1.005-1.030) 02/18/23 15:14 Urine Protein Neg (Negative) 02/18/23 15:14 Urine Glucose (UA) Norm (Normal) 02/18/23 15:14 Urine Ketones Negative (Negative) 02/18/23 15:14 Urine Blood 2+ (Negative) H 02/18/23 15:14 Urine Nitrate Negative (Negative) 02/18/23 15:14 Urine Bilirubin Neg (Negative) 02/18/23 15:14 Urine Urobilinogen Norm mg/dL (Negative) 02/18/23 15:14 Ur Leukocyte Esterase Negative (Negative) 02/18/23 15:14 Urine RBC 5-10 /hpf (0-2) H 02/18/23 15:14 Urine WBC 5-10 /hpf (0-5) H 02/18/23 15:14 Ur Squamous Epith Cells None /hpf (0-5) 02/18/23 15:14 Amorphous Sediment Not Reportable 02/18/23 15:14 Urine Bacteria 1+ /hpf (NONE) H 02/18/23 15:14 EKG Data EKG 1: Interpretation: Sinus rhythm rate of 97 with some right bundle branch block. No ST elevation or inverted T waves. MN interval 161 QT 362 Critical Care Time Critical Care Time: Critical Care Time: Yes Total Critical Care Time: 50 Attestation: Time spent discussing patient with family. Discussed patient with the hospitalist. Explained to reeval the patient multiple times while emergency room. Reviewing labs, old medical records and imaging. Discharge Plan Discharge Patient Disposition: Placed in Observation Admit Provider: Juhi Sanchez Clinical Impression: FREEMAN (acute kidney injury), Physical deconditioning, Cancer associated pain, CHF (congestive heart failure), Hypomagnesemia Coding Level of Care Code ED Hydrological Technical Officer for Chg Fwkatina
--- NOTE | 2023-02-18 11:58 | XRR_ITS ---
PROCEDURE INFORMATION: Exam: XR Chest Exam date and time: 02/18/2023 12:12 PM Age: 82 years old Clinical indication: Smoker's cough; Prior surgery; Surgery date: 6+ months; Surgery type: Cabg, port; Patient HX: HX of lymphoma, bladder cancer, lung cancer TECHNIQUE: Imaging protocol: Radiologic exam of the chest. Views: 1 view. COMPARISON: CT chest abdpel w/*[id number] 11/23/2022 2:33 PM FINDINGS: Tubes, catheters and devices: Port catheter appears to be in satisfactory position. Lungs: Emphysematous changes are suspected with hyperinflation and coarse interstitial markings. No focal consolidation. Pleural spaces: Unremarkable. No pleural effusion. No pneumothorax. Heart/Mediastinum: Unremarkable. No cardiomegaly. Bones/joints: Are sternal sutures. Soft tissues: There are right-sided chest wall clips. XR/XR chest 1V portable [id number] IMPRESSION: No acute findings. Emphysema.
[2023-02-18 12:31] LABS: ABG PCO2 23.8 mmHg (35-45); ABG PH Result 7.42 (7.35-7.45); Base Excess ABG -7.2 mmol/L (-2.0-2.0); HCO3 ABG 15.6 mmol/L (22-26); Oxygen Saturation ABG 95.1; PO2 ABG 71.7 mmHg (80.0-100.0)
[2023-02-18 12:32] LABS: Alveolar-Arterial Oxygen Gradi 45.6 mmHg (5-10); Arterial Blood Gas Hematocrit 36.6 % (42-52); Blood Gas Operator Identificat AMH; Blood Gas Sample Site LB; Blood Gas Sample Type ART; Carboxyhemoglobin 1.8 %THgb (0.4-20.1); HGB O2 Sat 93.1 % (95-100); Ionized Calcium Level - ABG 1.4 mmol/L (1.1-1.4); Methemoglobin 0.3 % (0.4-1.5); Oxygen Device ROOM AIR; Potassium Level - ABG 5.3 mmol/L (3.5-5.0); Total Hemoglobin 11.9 g/dL (14-18)
[2023-02-18] MEDS: cefTRIAXone 1,000 MG in sodium chloride 0.9% (plus) 50 ML 100 MG IV (13:13)
[2023-02-18] MEDS: sodium chloride 0.9% 1,000 ML 999 ML IV (13:13)
[2023-02-18] MEDS: ipratropium-albuterol 3 mL Neb INHALATION (13:13)
[2023-02-18 13:27] LABS: Basophils # 0.1 10^3/uL (0.0-0.1); Basophils % 0.8 %; Eosinophils # 0.2 10^3/uL (0.0-0.8); Eosinophils % 2.4 %; Hematocrit 37.7 % (42.0-52.0); Hemoglobin 11.3 g/dL (11.7-16.6); Lymphocytes # 0.6 10^3/uL (0.8-4.8); Lymphocytes % 8.6 %; Mean Corpuscular Hemoglobin 32.2 pg (28.0-34.0); Mean Corpuscular Volume 107.4 fl (80-94); Mean Platelet Volume 10.2 fL (7.4-10.4); Monocytes # 0.9 10^3/uL (0.2-0.9); Monocytes % 14.1 %; Neutrophils # 4.43 10^3/uL (1.8-7.7); Nucleated Red Blood Cells % 0 %; Platelet Count 110 10^3/cmm (130-400); Red Blood Count 3.51 10^6/uL (4.1-5.3); Red Cell Distribution Width 13.4 % (12.1-15.1); White Blood Count 6.6 10^3/uL (4.0-10.0)
--- NOTE | 2023-02-18 13:43 | PC.PHAR ---
pts daughter yessi and pts son verified pts medications-states the pt is only taking pepcid complete 1 tab bid-latanoprost 1 drop hs-levemir flexpen ss daily prn ext shows last filled 10/17/22 15 units daily-megestrol 400mg/10ml take 20ml po qam pts daughter states was increased to 20ml on 02/12/23 rx filled 10ml qam on 02/11/23 30d/s-and protonix 20mg qam filled 01/15/23 90d/s-pts daughter yessi states the pt refuses to take aspirin 81mg daily-lipitor 40mg daily filled 10/22/22 90d/s-celexa 10mg daily filled 09/05/22 90d/s-plavix 75mg daily filled 08/16/22 90d/s-cyproheptadine 4mg take 2mg hs filled 10/22/22 60d/s-epleronone 25mg daily filled 11/12/22 90d/s-iron 325mg daily-folic acid 1mg daily-imdur er 60mg daily filled 08/16/22 90d/s-levothyroxine 25mcg daily filled 10/16/22 90d/s-mag ox 250mg daily-mirtazapine 7.5mg hs filled 11/20/22 30d/s-zofran 4mg odt q8h prn filled 01/15/23 10d/s yessi states pt hasnt taken those medications in 2 months- yessi states he finished his cipro 500mg bid on 02/17/23 rx filled 02/12/23 5d/s-states the pt had 2 days left of the fluconazole 200mg daily filled 02/01/23 14d/s states it was changed to cipro- requested that all the meds even the meds pt is refusing to take to be left entered on med rec-notese are made in the pharmacy comment
[2023-02-18 13:44] LABS: Alanine Aminotransferase < 5 U/L (0-41); Albumin Level 3.3 g/dL (3.5-5.2); Alkaline Phosphatase 68 U/L (40-130); Anion Gap 18.7 (5-19); Aspartate Amino Transferase 12 U/L (0-40); Blood Urea Nitrogen 38 mg/dL (8-23); Calcium 10.1 mg/dL (8.5-10.5); Carbon Dioxide 16 mmol/L (22-29); Chloride 107 mmol/L (98-107); Globulin 3.1 g/dL (1.3-4.6); Glucose 269 mg/dL (65-115); Magnesium 1.5 mg/dL (1.7-2.3); NT Pro B Type Natriuretic Pept 9786 pg/mL (0-450); Osmolality Calculated 301 mOsm/kg (285-295); Potassium 5.7 mmol/L (3.5-5.1); Sodium 136 mmol/L (136-145); Total Bilirubin 0.4 mg/dL (0.15-1.2); Total Protein 6.4 g/dL (6.6-8.7)
[2023-02-18 13:50] LABS: Slide Review Slide Review Perform
[2023-02-18 13:51] LABS: Neutrophils % 74.1 %
--- NOTE | 2023-02-18 14:18 | ECG_ITS ---
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 Measurements Intervals [place] Rate: 97 P: 31 SC: 161 QRS: -72 QRSD: 106 T: 46 QT: 362 QTc: 461 Interpretive Statements SINUS RHYTHM LOW QRS VOLTAGE IN PRECORDIAL LEADS [QRS DEFLECTION < 1.0 mV IN CHEST LEADS] PATTERN CONSISTENT WITH PULMONARY DISEASE RIGHT BUNDLE BRANCH BLOCK [120+ ms QRS DURATION, UPRIGHT V1, 40+ ms S IN I/aVL/V4/V5/V6] INFERIOR MYOCARDIAL INFARCTION , PROBABLY OLD [40+ ms Q WAVE AND/OR ST/T ABNORMALITY IN II/aVF] Compared to ECG 10/21/2022 14:22:59 Low QRS voltage now present Right bundle-branch block now present Incomplete right bundle-branch block no longer present Myocardial infarct finding still present Electronically Signed On 02-19-2023 3:50:34 CDT by Unique Jones M.D. [email or web address]
--- NOTE | 2023-02-18 14:32 | PM.HP ---
Providers/Chief Complaint Admitting Physician: Juhi Trammell MD Primary Care Provider: Vidal Kwan Chief Complaint: physician sent, possible pneumonia History of Present Illness Ehsan Garcias is a 82 year old male who presented to oncology clinic today for follow-up appointment. While there he was noted to be short of breath and hypoxic and was referred to the emergency room for further evaluation. There was concern for possibility of pneumonia as he has been having increase in baseline productive cough lately. Sometimes notes some specks of blood. No reports of any fevers but he is often cold. He has generally not been feeling well. On arrival here his oxygen saturation on room air was within normal range but he was noted to be mildly tachycardic. Family reported to ER provider that oxygen saturations were as low as 75% at 1 point today. No known sick contacts. Chest x-ray in the emergency room showed findings of pulmonary fibrosis and emphysema but no infiltrates or effusions noted. White count was normal. He empirically received Rocephin and IV fluid bolus. Blood cultures were obtained. White count came back unremarkable though with a low lymphocyte count which is not new for him. Mr. Garcias has a known history of follicular lymphoma grade 3A that initially involved areas of the colon and later found to involve left chest wall and ribs. Most recently he had been found to have recurrent disease in the left chest wall by biopsy in December of this year. This is involved intercostal muscles and pleura centered around the third fourth and fifth ribs. On a chest abdomen and pelvis CT in November of this year Mr. Garcias was also noted to have had a 7 mm subpleural nodule in the left lower lobe that was nonspecific in nature by description and could either be benign or a new metastatic site. Evidence of pulmonary hypertension was seen. He completed a course of radiation therapy in January. He had previously undergone chemotherapy with Bendamustine/Rituxan with last dose in July 2022. In addition to the white count, patient was found to have evidence of acute kidney injury, hypomagnesemia, hyperkalemia along with elevated BNP. He was subsequently given a dose of Lasix 40 mg IV, Kayexalate and replacement magnesium and request was made for admission. In talking with him he has not been taking many of his usual chronically prescribed medications for couple of months. The home medication list shown includes date last taken indicates of what he has and has not been taking regularly lately. I am unsure of when he last took eplerenone. He admits to not eating or drinking very much in total, states that he probably gets more water than anything. His mouth has been very dry lately. He has continued to lose weight. He has noticed no change in his urine output but does describe noticing some bright red blood when he wipes after having a bowel movement. Denies significant change in bowel movements otherwise. His biggest complaint is pain in the chest wall. He takes Tylenol at home for this but not anything else. He gets some relief but short-lived. He admits to being down with all that is happened to him over the last year and not wanting to take 70 medications as well as losing his a 55 years. Does not want to take so many medications or hurt as much as he does. 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 On review of available records from outside facilities as well as here it looks like he was started on Entresto in early November of this year after he was found to have an ejection fraction of 20 to 25% on echocardiogram performed at [facility]. He was hospitalized there with sepsis/pneumonia, non-ST elevation ID felt to be type II process with a peak troponin of around 2000, acute kidney injury and metabolic encephalopathy. He had similar acute kidney injury prior to that hospital stay. He had been on diuretic therapy in the form of spironolactone and torsemide in the past. He only had the Entresto filled 1 time for 90-day supply. Sometime in December he quit taking most of the prescribed medications. Since then he did complete a course of fluconazole followed by ciprofloxacin with last dose being taken on February 17. Other home medicines that he is actually been taking include twice daily Pepcid, daily PPI, latanoprost eyedrops, sliding scale Levemir, Megace, and as needed nitroglycerin for chest pain. He has NOT been taking allopurinol, spironolactone, Coreg, glimepiride, sodium bicarb tablets, Zofran, mirtazapine, magnesium, levothyroxine, isosorbide, folic acid, ferrous sulfate, aspirin, atorvastatin, citalopram, Plavix or cyproheptadine. He takes Tylenol as needed for pain. He continues to smoke sometimes but not near what he used to. He does not drink any longer. Review of Systems General: Reports: Other (ROS as per HPI or as otherwise noted here) Const: Reports: body aches, change in appetite (appetite worse), change in weight (continued weight loss), fatigue, malaise and night sweats (sometimes); Denies: fever(s) (does not think he has had fever) Eyes: Denies: change in vision ENMT: Reports: oral sores (sores in mouth make it hard to swallow sometimes) and dry mouth; Denies: nasal congestion Card: Reports: chest pain (left chest wall/ribs, arouond port on right, keeps awake), lightheadedness and dyspnea on exertion; Denies: palpitations, edema, syncope or orthopnea Resp: Reports: dyspnea, productive cough, non-productive cough, wheezing, pain on inspiration (left chest, may be worsening over time) and hemoptysis (maybe sometimes) GI: Reports: nausea, heartburn, change in bowel habits and hematochezia (when wipes, bright red); Denies: abdominal pain, vomiting, constipation, GI cramping or pain on defecation : Denies: flank pain, oliguria or hematuria Musc: Reports: back pain, extremity pain and muscle weakness Neuro: Reports: sensory changes (feet and hands hurt), difficulty walking (uses assistive devices, limited ambulation) and other (no recent fall) Psych: Reports: depression, loss of interest and change in appetite; Denies: suicidal ideation or homicidal ideation Endo: Reports: cold intolerance; Denies: polyuria or polydipsia Medications/Allergies Home Medications Medication Instructions Recorded Confirmed Last Taken Type clopidogrel 75 mg tablet (Plavix) 75 mg PO DAILY 07/29/22 02/18/23 2 Months Ago History ~12/19/22 isosorbide mononitrate 60 mg 60 mg PO DAILY 07/29/22 02/18/23 2 Months Ago History tablet,extended release 24 hr ~12/19/22 levothyroxine 25 mcg tablet 25 mcg PO DAILY 07/29/22 02/18/23 2 Months Ago History ~12/19/22 acetaminophen 325 mg tablet 325 mg PO QID PRN Pain 08/14/22 02/18/23 Unknown History aspirin 81 mg tablet,delayed 81 mg PO DAILY 08/14/22 02/18/23 2 Months Ago History release (Adult Low Dose Aspirin) ~12/19/22 not taken in ~2 georgina ferrous sulfate 325 mg (65 mg 325 mg PO DAILY 08/14/22 02/18/23 Unknown History iron) tablet,delayed release latanoprost 0.005 % eye drops 1 drp ophthalmic (eye) BEDTIME 08/14/22 02/18/23 02/17/23 History magnesium oxide 250 mg PO DAILY 08/14/22 02/18/23 Unknown History mirtazapine 7.5 mg tablet 7.5 mg PO DAILY 09/27/22 02/18/23 2 Months Ago History ~12/19/22 atorvastatin 40 mg tablet 40 mg PO DAILY 10/30/22 02/18/23 2 Months Ago History ~12/19/22 citalopram 10 mg tablet 10 mg PO DAILY 10/30/22 02/18/23 2 Months Ago History ~12/19/22 cyproheptadine 4 mg tablet 2 mg PO BEDTIME 10/30/22 02/18/23 2 Months Ago History ~12/19/22 folic acid 1 mg tablet 1 mg PO DAILY 10/30/22 02/18/23 Unknown History nitroglycerin 0.4 mg sublingual 0.4 mg sublingual Q5M PRN Chest 10/30/22 02/18/23 Unknown History tablet (Nitrostat) Pain eplerenone 25 mg tablet 25 mg PO DAILY #90 tabs 11/12/22 02/18/23 2 Months Ago Rx ~12/19/22 ciprofloxacin HCl 500 mg tablet 500 mg PO BID 01/22/23 02/18/23 02/17/23 History finished 02/17/23 ondansetron 4 mg disintegrating 4 mg PO Q8H PRN Nausea And Vomiting 01/22/23 02/18/23 Unknown History tablet pantoprazole 20 mg tablet,delayed 20 mg PO QAM 01/22/23 02/18/23 02/18/23 History release famotidine-Ca carb-mag hydrox 10 1 tab PO BID 02/18/23 02/18/23 02/18/23 History mg-800 mg-165 mg chewable tablet (Pepcid Complete) insulin detemir U-100 100 unit/mL See Rx Instructions .Route .COMPLEX 08/02/18/23 02/18/23 History (3 mL) subcutaneous pen (Levemir 7 units FlexPen) megestrol 400 mg/10 mL (40 mg/mL) 800 mg PO QAM 02/18/23 02/18/23 02/18/23 History oral suspension see pharmacy comment Allergies Allergy/AdvReac Type Severity Reaction Status Date / Time codeine Allergy ADR-Nausea Verified 02/18/23 11:57 meperidine [From Demerol] Allergy ADR-Nausea Verified 02/18/23 11:57 naproxen Allergy ALGY-Anaphy Verified 02/18/23 11:57 laxis shrimp Allergy ADR-Nausea Verified 02/18/23 11:57 PFSH Acute PFSH: Medical History (Updated 02/18/23 @ 16:54 by Juhi Trammell MD) Bifascicular block CAD (coronary artery disease) Cardiomyopathy Echo at [facility] in 08/2022 showed EF 60%; Echo at [facility] in 10/2022 showed EF 20-25% after a NSTEMI with peak troponin of ~2000 Depression Diabetes mellitus, type II Follicular lymphoma grade 3a Grade 1 identified in ~2016, in 2021 found to be grade 3 involving colon, anterior chest wall and ribs, treated with chemo (Bendamustine/Rituxan, last does in Jul 2022) and radiation (5 fractions of radiation to the left chest wall from January 02, 2023 through January 09, 2023) GERD (gastroesophageal reflux disease) History of bladder cancer At diagnosis, 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, treated with BCG induction therapy, f/u cystoscopy and biopsy showed muscle invasion, received cisplatin/gemcitabine in January 2017 with progression, underwent radical cystectomy/prostatectomy with ileal condiut in February 2017, T2b, N0 History of CVA (cerebrovascular accident) History of diabetic ketoacidosis and history of hypoglycemia History of kidney stones History of ID (myocardial infarction) History of prostate cancer incidental finding of 3mm lesion at time of surgery for bladder cancer, had prostatectomy Hyperlipidemia Hypertension Hypothyroidism Surgical History (Updated 02/18/23 @ 16:39 by Juhi Trammell MD) H/O transurethral resection of bladder tumor (TURBT) (~2015) History of heart artery stent History of urostomy Hx of total cystectomy (~2016) S/P CABG (coronary artery bypass graft) x2 S/P colectomy S/P ileal conduit (~2017) S/P prostatectomy (~2017) Family History Father CAD (coronary artery disease) Mother Medication overdose Social History (Updated 02/18/23 @ 16:27 by Juhi Trammell MD) Smoking and tobacco status: current every day smoker cigarettes Packs smoked per day: 0.25 [ Other cigarette details: Quit for 10 years, then restarted] Alcohol intake: current Alcohol intake frequency: other Alcohol type: hard liquor Alcohol use comment: Previously drank regularly, now rarely drinks Substance/Drug Use: never Caregiver/support person: Yes Lives independently: No Household members: children Marital status: / Vitals/I&O/Wt Last Vital Signs Temp 97.5 F L 02/18/23 12:02 Pulse 98 02/18/23 14:01 Resp 22 H 02/18/23 14:01 BP 152/75 02/18/23 14:01 Pulse Ox 98 02/18/23 14:01 O2 Del Method Room Air 02/18/23 14:01 02/17/23 02/18/23 02/18/23 22:59 06:59 14:59 Intake Total 50 / 50 Balance 50 / 50 Weight last 48 hrs Weight 50.349 kg Physical Exam Narrative: Patient is awake and alert, hard of hearing but able to provide history he can recall. Cooperative. Some bitemporal wasting and sunken eyelids noted. Arcus senilis bilaterally. Oropharynx with dry mucous membranes. No grossly visible sores underneath upper dentures but does have what appears to be some discomfort swallowing mucus/saliva after removing his dentures, no choking or inability to handle secretions. Neck is supple. Lungs are remarkable for scattered inspiratory and expiratory wheezes, no rales or rhonchi are noted. Chest wall is tender to palpation left more so than right. Port-A-Cath is accessed in the right upper chest. Skin overlying this appears visually normal. Abdomen is soft with positive bowel sounds. Slightly sunken. Ileal conduit ostomy noted with clear light yellow urine in the bag with some sediment. No gross bright red blood noted. Extremities no pitting edema or calf tenderness. Feet and hands are hypersensitive to touch. Moves all extremities but generally weak. Muscle wasting is noted. Skin is very dry with tenting. Capillary refill brisk. Speech is clear, face symmetric. Oriented to person, place and for the most part situation but not able to recall things such as doctors names, medication names (recalls insulin, not levemir, or BP med rather than generic or trade name for example). Data 02/18/23 12:50 02/18/23 12:50 Other Labs: Radiology Impressions Chest X-Ray 02/18/23 11:58 IMPRESSION: No acute findings. Emphysema. Laboratory Results WBC 6.6 10^3/uL (4.0-10.0) 02/18/23 12:50 RBC 3.51 10^6/uL (4.1-5.3) L 02/18/23 12:50 Hgb 11.3 g/dL (11.7-16.6) L 02/18/23 12:50 Hct 37.7 % (42.0-52.0) L 02/18/23 12:50 MCV 107.4 fl (80-94) H 02/18/23 12:50 MCH 32.2 pg (28.0-34.0) 02/18/23 12:50 MCHC 30.0 g/dL (30.0-36.0) 02/18/23 12:50 RDW 13.4 % (12.1-15.1) 02/18/23 12:50 Plt Count 110 10^3/cmm (130-400) L 02/18/23 12:50 MPV 10.2 fL (7.4-10.4) 02/18/23 12:50 Neut % (Auto) 74.1 % 02/18/23 12:50 Lymph % (Auto) 8.6 % 02/18/23 12:50 Walker % (Auto) 14.1 % 02/18/23 12:50 Eos % (Auto) 2.4 % 02/18/23 12:50 Baso % (Auto) 0.8 % 02/18/23 12:50 Neut # (Auto) 4.43 10^3/uL (1.8-7.7) 02/18/23 12:50 Lymph # (Auto) 0.6 10^3/uL (0.8-4.8) L 02/18/23 12:50 Walker # (Auto) 0.9 10^3/uL (0.2-0.9) 02/18/23 12:50 Eos # (Auto) 0.2 10^3/uL (0.0-0.8) 02/18/23 12:50 Baso # (Auto) 0.1 10^3/uL (0.0-0.1) 02/18/23 12:50 Nucleated RBC % (auto) 0 % 02/18/23 12:50 Nucleated RBCs # 0.0 /100WBC 02/18/23 12:50 Specimen Type Art 02/18/23 12:18 Sample Site Lb 02/18/23 12:18 ABG pH 7.42 (7.35-7.45) 02/18/23 12:18 ABG pCO2 23.8 mmHg (35-45) L 02/18/23 12:18 ABG pO2 71.7 mmHg (80.0-100.0) L 02/18/23 12:18 ABG HCO3 15.6 mmol/L (22-26) L 02/18/23 12:18 ABG O2 Saturation 95.1 02/18/23 12:18 ABG Base Excess -7.2 mmol/L (-2.0-2.0) L 02/18/23 12:18 Darin Test N/a 02/18/23 12:18 A-a O2 Gradient 45.6 mmHg (5-10) H 02/18/23 12:18 Hematocrit 36.6 % (42-52) L 02/18/23 12:18 Hgb O2 Saturation 93.1 % (95-100) L 02/18/23 12:18 Carboxyhemoglobin 1.8 %THgb (0.4-20.1) 02/18/23 12:18 Methemoglobin 0.3 % (0.4-1.5) L 02/18/23 12:18 Total Hemoglobin 11.9 g/dL (14-18) L 02/18/23 12:18 Sodium 136.0 mmol/L (131-143) 02/18/23 12:18 Potassium 5.3 mmol/L (3.5-5.0) H 02/18/23 12:18 Glucose 282.0 mg/dL (70-115) H 02/18/23 12:18 Ionized Calcium 1.4 mmol/L (1.1-1.4) 02/18/23 12:18 O2 Delivery Device Room air 02/18/23 12:18 FiO2 21.0 % 02/18/23 12:18 [employer] ID [id number] 02/18/23 12:18 Sodium 136 mmol/L (136-145) 02/18/23 12:50 Potassium 5.7 mmol/L (3.5-5.1) H 02/18/23 12:50 Chloride 107 mmol/L (98-107) 02/18/23 12:50 Carbon Dioxide 16 mmol/L (22-29) L 02/18/23 12:50 Anion Gap 18.7 (5-19) 02/18/23 12:50 BUN 38 mg/dL (8-23) H 02/18/23 12:50 Creatinine 2.4 mg/dL (0.7-1.2) H 02/18/23 12:50 GFR Calculation Not Reportable 02/18/23 12:50 Glucose 269 mg/dL (65-115) H 02/18/23 12:50 Calculated Osmolality 301 mOsm/kg (285-295) H 02/18/23 12:50 Lactic Acid 2.0 mmol/L (0.5-2.2) 02/18/23 12:50 Calcium 10.1 mg/dL (8.5-10.5) 02/18/23 12:50 Magnesium 1.5 mg/dL (1.7-2.3) L 02/18/23 12:50 Total Bilirubin 0.4 mg/dL (0.15-1.2) 02/18/23 12:50 AST 12 U/L (0-40) 02/18/23 12:50 ALT < 5 U/L (0-41) 02/18/23 12:50 Alkaline Phosphatase 68 U/L (40-130) 02/18/23 12:50 NT-Pro-B Natriuret Pep 9786 pg/mL (0-450) H 02/18/23 12:50 Total Protein 6.4 g/dL (6.6-8.7) L 02/18/23 12:50 Albumin 3.3 g/dL (3.5-5.2) L 02/18/23 12:50 Globulin 3.1 g/dL (1.3-4.6) 02/18/23 12:50 Laboratory Tests 02/18/23 12:50 Uric Acid 6.8 Phosphorus 3.9 TSH 4.20 URINALYSIS from Ileal Conduit specimen 02/18/23 15:14 Urine Appearance Clear Ur Specific [place] 1.005 Urine Ketones Negative Urine Blood 2+ H Urine Nitrate Negative Ur Leukocyte Esterase Negative Urine RBC 5-10 H Urine WBC 5-10 H Urine Bacteria 1+ H Micro: Microbiology 02/18/23 13:02 Blood Culture - Preliminary Blood SPECIMEN COLLECTED 02/18/23 12:50 Blood Culture - Preliminary Blood SPECIMEN COLLECTED A&P Assessment and plan (1) Shortness of breath: Presenting complaint at oncology clinic today along with hypoxemia reported by family to be as low as 75% via pulse oximeter today. Has had previous episode of pneumonia with similar presentation. Oxygen saturations on arrival to the emergency room are within normal limits on room air. Chest x-ray did not show obvious infiltrative process. Mr. Garcias has a history of smoking and continues to smoke at times. He has had findings of pulmonary fibrosis and emphysema on imaging previously identified and has known pleural involvement with lymphoma currently in addition to a small subcentimeter left lower lobe pulmonary nodule. My overall impression is that shortness of breath is likely related to lung pathology in the setting of acute kidney injury and known coronary artery disease creating demand ischemia that is symptomatic. Could simply be COPD but seems more exertional in nature by description. EKG today with sinus tachycardia and similar findings to prior EKG studies, no ST elevation. Has not had cardiac enzymes yet and is really not a candidate for invasive cardiac evaluation/intervention given current renal function and comorbidities. Acute on chronic CHF is within the differential but overall appears volume depleted clinically. With known cancer and somewhat pleuritic nature of chest wall pain and sputum described as with specks of blood, pulmonary embolus is considered. He does have an elevated AA gradient on ABG. With report of bright red blood per rectum along with anemia not an ideal candidate for anticoagulation. And with current renal function not a candidate for CTA. (2) FREEMAN (acute kidney injury): Likely with at least chronic kidney disease stage II if not 3. Baseline creatinine around 1.2. I suspect current acute kidney injury is from a combination of volume depletion, poor oral intake, uncontrolled diabetes and hypertension plus or minus effect of Entresto although time since reported last taken makes this less likely. He had previously been on diuretic therapy prior to hospitalization in [facility] in October but this was stopped due to acute kidney injury at that time from what I can gather. He has had several hospitalizations this year with similar renal function at presentation with clinical improvement at the time of subsequent discharge. Urinalysis is consistent with ileal conduit specimenrather than an indicator of infection without other suggestive findings. Has associated hyperkalemia.. (3) CHF (congestive heart failure): Chronic cardiomyopathy most recent echocardiogram from an outside facility with reduced ejection fraction of 20 to 25% after non-ST elevation, Type II ID in October of this year which was medically managed. At the beginning of the year ejection fraction was 60%. Though he has an elevated BNP currently I suspect this is secondary to acute kidney injury. Clinically does not appear total body volume overloaded and in fact appears quite dry. Previous imaging studies have indicated evidence of pulmonary hypertension. Has not been taking recommended medication regimen for about 2 months. (4) Follicular lymphoma grade 3a: Completed radiation therapy in January of this year. Last chemotherapy was completed in July of this year. Was to be seen today at oncology but because of his shortness of breath and hypoxia was sent to the emergency room. Future plan of care regarding cancer not known at this time. 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 Also stopped taking carvedilol and isosorbide though continues to use as needed nitroglycerin sublingual. (10) Hyperlipidemia: Previously had been on statin but has not taken for a couple of months (11) S/P ileal conduit: Secondary to history of bladder cancer, has urinalysis consistent with urine specimen from conduit with some cellular material noted but with negative nitrites and leukocyte esterase and no recently notable change to urine output (12) Hypothyroidism: chronic diagnosis for which patient has been prescribed levothyroxine. He has not been taking it by report for a couple of months and has normal TSH today. Plan Hypomagnesemia Anemia with macrocytosis, has been progressively worsening over time at a slow rate Report of bright red blood per rectum with wiping Observation admission for now Repeat renal function Hold further diuretics currently Low volume IV fluids Recheck and replace magnesium in the morning as indicated Monitor intake and output Echocardiogram Serial troponins May consider VQ scan depending on clinical course and goals of care discussions with patient and family May benefit from consideration of palliative care program depending on oncology and patient plans for future care, his primary concern in my discussions is not to feel pain like he is. Family not at bedside nor reachable by phone for me to discuss with them; patient expresses desire to be allowed natural and having a living will which he indicates his daughter knows about Cover empirically with lovenox renal dosing treatment coverage currently Monitor for bright red blood per rectum Monitor platelets for further drop with treatment, check coags Breathing treatments as needed Pain control, will try tramadol, has previously been prescribed oxycodone but not taken any pain medication regularly Monitor blood pressures for now Sublingual nitroglycerini Patient currently does not want to restart multiple medications he has not been taking including cardiac medications; willing to think about plavix and okay to take nitroglycerin if needed; not currently resuming statin given his age and comorbidities Sliding scale insulin and low dose long acting insulin Hold megace given age, cardiac condition, renal dysfunction and thrombotic risk in a patient with cancer S/P one dose of rocephin, no clear indication to continue at this time S/P course of Cipro ending 02/17 and course of diflucan prior to that I believe for urine coverage Follow up pending blood cultures Supportive care otherwise Plans discussed with patient and he was given an opportunity to ask questions VTE prophylaxis: Currently on treatment dose lovenox at renal dosing GI Prophylaxis: Chronically on PPI and H2B which I will continue Telemetry: will continue telemetry monitoring currently due to tachycardia at presentation Ruiz: HAS ileal conduit present on admisison with urostomy bag in place Line(s): peripheral IV Disposition plan: Home with family, may benefit from palliative care evaluation Code Status: Allow Natural Attestations Medical Necessity Statement*: Currently anticipate a stay less than two midnights in this gentleman presenting with shortness of breath and acute kidney injury who had stopped taking a lot of his medications within the last couple of months. Although oxygen saturations here have been within normal range they were noted to be low at an outside clinic and at home via pulse oximeter. Currently receiving IV fluids, close monitoring, further cardiac evaluation including an echocardiogram and cardiac enzymes and treatment dose Lovenox empirically. Further plans will depend on clinical course. At significant risk of rapid clinical decline with out focused intervention in the hospital setting presently. 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
[2023-02-18] MEDS: FUROsemide 10 mg/mL SDV 4mL 40 MG IVP (14:38)
[2023-02-18] MEDS: sodium polystyrene sulfonate 15 gm/60 mL Btl PO (14:39)
[2023-02-18] MEDS: magnesium sulfate premix 2 GM/50 ML PIGGYBACK IV (14:40)
[2023-02-18 15:46] LABS: Phosphorus 3.9 mg/dL (2.5-4.5); Uric Acid 6.8 mg/dL (3.4-7.0)
[2023-02-18 15:51] LABS: Add Urine Microscopic? YES; Bilirubin Urine Neg (Negative); Blood Urine 2+ (Negative); Glucose Urine UA Norm (Normal); Ketones Urine Negative (Negative); Leukocyte Esterase Urine Negative (Negative); Nitrate Urine Negative (Negative); Protein Urine Neg (Negative); Specific Gravity, Urine 1.005 (1.005-1.030); Urine Appearance Clear (CLEAR); Urine Color Yellow (Yellow); Urobilinogen Urine Norm (Negative); pH Urine 7 (5-7)
[2023-02-18 15:55] LABS: Add Urine Culture? No; Bacteria Urine 1+ /hpf
--- NOTE | 2023-02-18 17:37 | USCV_ITS ---
Katerine Ehsan Age: 82 Gender: M : 1940 Exam Date: 02/18/2023 18:51 Ordering Phys: Juhi Trammell MD Technologist: NURY [place] [facility] [place]: evaluated for EF and right sided pressures. hx CABG 08/15/20. SOB, ben, CAD, lymphoma, bladder CA BP: 134 / 78 HR: 105 Rhythm: Sinus Technical Quality: Adequate MEASUREMENTS (Male / Female) Normal Values 2D ECHO LV Diastolic Diameter PLAX 4.2 cm 4.2 - 5.9 / 3.9 - 5.3 cm LV Systolic Diameter PLAX 2.6 cm IVS Diastolic Thickness 1.0 cm 0.6 - 1.0 / 0.6 - 0.9 cm IVS Systolic Thickness 1.1 cm LVPW Diastolic Thickness 0.9 cm 0.6 - 1.0 / 0.6 - 0.9 cm LVPW Systolic Thickness 1.5 cm LVOT Diameter 2.0 cm LV Ejection Fraction 2D Teich 68.2 % LV Ejection Fraction MOD 2C 55.5 % LV Ejection Fraction 2C AL 57.4 % LA Diameter 2.8 cm LA Width 3.5 cm LA Height 4.5 cm RA Width 3.0 cm RA Height 3.9 cm Aorta at Sinotubular Diameter 2.8 cm IVC Diameter 0.8 cm M-MODE Aortic Annulus Diameter 2.9 cm LA Ao Ratio MM 1.0 MV E Point Septal Separation 0.8 cm DOPPLER AV Peak Velocity 144.0 cm/s LVOT Peak Velocity 66.0 cm/s AV Area Cont Eq vti 1.3 cm squared AV Area Cont Eq pk 1.5 cm squared MV Area PHT 3.0 cm squared Mitral E to A Ratio 1.3 MV E' Velocity 49.0 cm/s Mitral E to MV E' Ratio 13.6 Mitral E to LV E' Lateral Ratio 13.4 Mitral E to LV E' Septal Ratio 13.8 TR Peak Velocity 172.0 cm/s TR Peak Gradient 11.8 mmHg TV Peak E Velocity 60.0 cm/s Right Atrial Pressure 5.0 mmHg Pulmonary Artery Systolic Pressu 16.8 mmHg PV Peak Velocity 73.0 cm/s RV Acceleration Time 0.2 s RV Ejection Time 0.3 s RV AcT/ET 0.6 FINDINGS Left Ventricle Mildly increased left ventricular cavity size. Moderately decreased left ventricular systolic function. Left ventricular ejection fraction is estimated at 30 %. Mild global hypokinesis with severe hypokinesis of basal to apical anterior, basal to mid anteroseptal, apical septal, mid inferolateral, apical lateral and apical ponce. Normal diastolic function. Abnormal septal motion. Right Ventricle Normal right ventricular size and systolic function. RVSP could not be calculated due to incomplete tricuspid regurgitation velocity profile. Right Atrium Normal right atrial size. Left Atrium Mildly increased left atrial size. Mitral Valve Structurally normal mitral valve. No mitral valve stenosis. No mitral valve regurgitation. Aortic Valve Mildly thickened and calcified trileaflet aortic valve more pronounced at noncoronary cusp. No aortic valve stenosis. Trace to mild aortic valve regurgitation. Tricuspid Valve Structurally normal tricuspid valve. Trace tricuspid valve regurgitation. Pulmonic Valve Structurally normal pulmonic valve. No pulmonary valve stenosis. Trace pulmonary valve regurgitation. Pericardium No pericardial effusion. Aorta Normal size aortic root and proximal ascending aorta. IVC Normal IVC dimension with >50% respiratory change of the inferior vena cava. CONCLUSIONS 1. Mildly increased left ventricular cavity size. Moderately decreased left ventricular systolic function. Left ventricular ejection fraction is estimated at 30 %. Mild global hypokinesis with severe hypokinesis of basal to apical anterior, basal to mid anteroseptal, apical septal, mid inferolateral, apical lateral and apical ponce. Normal diastolic function. 2. No prior similar studies to compare. Unique Jones MD (Electronically Signed) Final Date: 23 February 2023 16:25 S
[2023-02-18] MEDS: magnesium lactate 84 mg Tablet PO (18:19)
[2023-02-18] MEDS: docusate sodium 100 mg Capsule PO (18:19)
[2023-02-18] MEDS: famotidine 20 mg Tablet PO (18:19)
[2023-02-18] MEDS: enoxaparin 60 mg/0.6 mL Syringe 50 MG SUBCUT (18:20)
[2023-02-18] MEDS: sodium chloride 0.9% 1,000 ML 50 ML IV (18:20)
[2023-02-18 18:40] LABS: Glucose Point of Care 219 mg/dL (70-110)
[2023-02-18] MEDS: insulin lispro 100 unit/1 mL SUBCUT (18:42)
[2023-02-18 19:17] LABS: Blood Urea Nitrogen 34 mg/dL (8-23); Calcium 10.2 mg/dL (8.5-10.5); Carbon Dioxide 17 mmol/L (22-29); Chloride 105 mmol/L (98-107); Glucose 214 mg/dL (65-115); Osmolality Calculated 296 mOsm/kg (285-295); Sodium 136 mmol/L (136-145)
[2023-02-18 19:20] LABS: Troponin(5th) Baseline 89 ng/L (0-15)
--- NOTE | 2023-02-18 19:39 | ECG_ITS ---
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 Measurements Intervals [place] Rate: 99 P: 61 CO: 186 QRS: -77 QRSD: 94 T: 68 QT: 369 QTc: 474 Interpretive Statements SINUS RHYTHM LEFT AXIS DEVIATION [QRS AXIS < -30] LOW QRS VOLTAGE IN PRECORDIAL LEADS [QRS DEFLECTION < 1.0 mV IN CHEST LEADS] INCOMPLETE RIGHT BUNDLE BRANCH BLOCK [90+ ms QRS DURATION, TERMINAL R IN V1/V2, 40+ ms S IN I/aVL/V4/V5/V6] POSSIBLE ANTERIOR MYOCARDIAL INFARCTION , OF INDETERMINATE AGE [30 ms Q WAVE IN V3/V4, OR R < 0.2 mV IN V4] Compared to ECG 02/18/2023 14:31:20 Left-axis deviation now present Incomplete right bundle-branch block now present Right bundle-branch block no longer present Myocardial infarct finding still present Electronically Signed On 02-19-2023 3:51:01 CDT by Unique Jones M.D. [id number]
[2023-02-18 20:19] LABS: Glucose Point of Care 174 mg/dL (70-110)
[2023-02-18] MEDS: latanoprost 0.005% Op Soln 2.5 mL Btl 1 DROP EYE-BOTH (20:34)
[2023-02-18 21:33] LABS: Troponin 5 2HR 87.17 ng/L (0-15)
[2023-02-18 21:34] LABS: Troponin 5 2HR Delta -1.83 ABS# (0-10)
--- NOTE | 2023-02-18 23:43 | ECG_ITS ---
[facility] Test Date: 2023-02-19 Pat Name: Ehsan Garcias Department: Room: 267 Gender: Male Research Rn Spec: : 1940 Requested By: Juhi Trammell Order Number: [id number] Jason MD: Unique Jones M.D. Measurements Intervals [place] Rate: 88 P: 36 OR: 162 QRS: -72 QRSD: 105 T: 30 QT: 387 QTc: 469 Interpretive Statements SINUS RHYTHM LOW QRS VOLTAGE IN PRECORDIAL LEADS [QRS DEFLECTION < 1.0 mV IN CHEST LEADS] INCOMPLETE RIGHT BUNDLE BRANCH BLOCK [90+ ms QRS DURATION, TERMINAL R IN V1/V2, 40+ ms S IN I/aVL/V4/V5/V6] POSSIBLE ANTERIOR MYOCARDIAL INFARCTION , PROBABLY OLD [30 ms Q WAVE IN V3/V4, OR R < 0.2 mV IN V4] INFERIOR MYOCARDIAL INFARCTION , PROBABLY OLD [40+ ms Q WAVE AND/OR ST/T ABNORMALITY IN II/aVF] Compared to ECG 02/18/2023 19:39:24 Left-axis deviation no longer present Myocardial infarct finding still present Electronically Signed On 02-19-2023 3:50:54 CDT by Unique Jones M.D. [id number]
[2023-02-19] VITALS (13 sets, daily range): BP systolic 113–124; BP diastolic 72–85; PULSE 64–97; RESP 15–18; TEMP 36.3–36.9; O2SAT 95–100
[2023-02-19 01:05] LABS: Hematocrit 31.5 % (42.0-52.0); Hemoglobin 10.2 g/dL (11.7-16.6); Mean Corpuscular HGB Conc 32.4 g/dL (30.0-36.0); Mean Corpuscular Hemoglobin 32.8 pg (28.0-34.0); Mean Corpuscular Volume 101.3 fl (80-94); Mean Platelet Volume 10.8 fL (7.4-10.4); Platelet Count 111 10^3/cmm (130-400); Red Blood Count 3.11 10^6/uL (4.1-5.3); Red Cell Distribution Width 13.4 % (12.1-15.1); White Blood Count 6.2 10^3/uL (4.0-10.0)
[2023-02-19 01:24] LABS: Anion Gap 17.7 (5-19); Blood Urea Nitrogen 37 mg/dL (8-23); Calcium 9.6 mg/dL (8.5-10.5); Carbon Dioxide 19 mmol/L (22-29); Chloride 104 mmol/L (98-107); Glucose 149 mg/dL (65-115); Magnesium 2.1 mg/dL (1.7-2.3); Osmolality Calculated 293 mOsm/kg (285-295); Phosphorus 3.7 mg/dL (2.5-4.5); Potassium 4.7 mmol/L (3.5-5.1); Sodium 136 mmol/L (136-145)
[2023-02-19 01:25] LABS: Troponin 5 6HR 91.44 ng/L (0-15); Troponin 5 6HR Delta 2.44 ng/L (0-12)
[2023-02-19 01:41] LABS: Slide Review Slide Review Perform
[2023-02-19 01:42] LABS: Eosinophils 1 %; Hypersegmented Polys 2+; Lymphocytes 8 %; Monocytes Absolute 0.6 10^3/cmm (0.1-0.6); Segmented Neutrophils 80 %; Total Cells Counted 100 (0-100)
[2023-02-19 01:43] LABS: Platelet Estimate Decreased (Normal)
[2023-02-19 04:51] LABS: INR 1.31 (0.8-1.2)
[2023-02-19 04:52] LABS: Partial Thromboplastin Time 36.7 SECONDS (23.9-36.7)
[2023-02-19 06:45] LABS: Glucose Point of Care 127 mg/dL (70-110)
--- NOTE | 2023-02-19 08:38 | USCV_ITS ---
Ehsan Garcias Age: 82 Gender: M : 1940 Exam Date: 02/19/2023 10:15 Ordering Phys: Johan Virk MD Technologist: Reece Connolly [place] [facility] [place]: lt leg swelling PROCEDURES: The venous duplex Doppler examination of both lower extremities was performed in the standard fashion. The following venous structures were evaluated: common femoral vein, profunda vein, proximal portion of the greater saphenous vein, superficial femoral vein, and the popliteal vein. FINDINGS: Evidence of acute occlusive deep vein thrombosis in the right popliteal vein with abnormal flow dynamics. Evidence of acute partial deep vein thrombosis in the right peroneal vein with normal flow dynamics. Left leg is negative for DVT. CONCLUSIONS There is evidence of acute right lower extremity deep venous thrombosis, popliteal and peroneal veins. Report called at time of exam . Dr. Dee Martinez DO (Electronically Signed) Final Date: 19 February 2023 10:46 S
--- NOTE | 2023-02-19 08:42 | US_ITS ---
WS: [id number] RENAL ULTRASOUND HISTORY: ben COMPARISON: None available. TECHNIQUE: 2-D and color Doppler imaging of the kidney submitted. Right kidney: 7.9 cm x 3.3 cm x 2.9 cm. Cortex: 1.1 cm Atrophy right kidney. Focal area of cortical thinning in the mid kidney. No hydronephrosis or solid m ass. Left kidney: 9.0 cm x 4.0 cm x 4.1 cm. Cortex: 1.1 cm Low normal size kidney. No hydronephrosis or mass. Aorta: Mild atherosclerosis aorta. Urinary Bladder: Nondistended. IMPRESSION: 1. No hydronephrosis. 2. Mild atrophy right kidney with focal cortical thinning.
[2023-02-19] MEDS: clopidogrel 75 mg Tablet PO (08:47)
[2023-02-19] MEDS: famotidine 20 mg Tablet PO ×2 (08:47→17:07)
[2023-02-19] MEDS: docusate sodium 100 mg Capsule PO ×2 (08:47→17:07)
[2023-02-19] MEDS: magnesium lactate 84 mg Tablet PO ×2 (08:47→17:07)
[2023-02-19] MEDS: aspirin 81 mg EC Tablet PO (08:48)
[2023-02-19] MEDS: ondansetron 4 MG Tablet PO (08:48)
[2023-02-19] MEDS: pantoprazole DR 40 mg Tablet PO ×2 (08:48→17:25)
[2023-02-19] MEDS: oxyCODONE 5 mg IR Tab/Cap PO ×2 (08:48→17:25)
[2023-02-19 09:02] LABS: Creatine Phosphokinase 28 U/L (39-308)
[2023-02-19 09:06] LABS: D Dimer 6.68 ug/mIFEU (0-0.59)
--- NOTE | 2023-02-19 09:43 | PC.CHAP ---
Pastoral Care Encounter/Spiritual Assessment Type of Contact [] Declined formula technician visit [] Patient/Family/Request visit [] Outpatient visit [] Follow-up visit [] Physician referral [] Code/Alert [] Routine visit [] Staff referral [] Actively dying [] Patient sleeping [] Family support [] [] Out of room [] Palliative care [] [x] Receiving care in room [] Pre-surgical visit [] Trauma [] Long length of stay [] ICU visit [] Other: Relational/Emotional Strength [] Patient feels connected with others/family/visitors/staff [] Distress [] Loneliness/isolation [] Abandonment Spirituality of Patient [] Person of Mattie [] Attends Yazidi of their Mattie [] Believes in Prayer [] Reads Bible or Confucianist materials [] There are Spiritual issues to be addressed Track Grinder Operator Interventions [] Prayer [] Active listening [] Non-anxious presence [] Spiritual/emotional support [] Crisis/trauma care [] Spiritual counseling [] Bereavement support [] Provided bereavement packet [] Provided Bible/devotional materials [] Provided toy/stuffed animal, coloring book to patient or family member [] Provided Communion [] Anointing/[place] [] Salvation [] Completed spiritual assessment [] Other: Impact on Illness or Injury [] Angry [] Fearful [] Anxious [] Often cries [] Exhaustion [] Unable to work [] Unable to attend pentecostalism [] Unable to walk/stand [] Unable to read [] Unable to drive [] Unable to eat/drink [] Unable to sleep [] Unable to be with family [] Patient intubated [] Other: Summary Time spent with patient
[2023-02-19 11:23] LABS: Glucose Point of Care 205 mg/dL (70-110)
[2023-02-19] MEDS: TRAMadol 50 mg Tablet PO (12:19)
[2023-02-19 13:31] LABS: C Reactive Protein 137.6 mg/L (0.0-4.9)
[2023-02-19] MEDS: heparin 5,000 unit/mL INJ 1 mL IV (14:30)
[2023-02-19] MEDS: heparin drip 25,000 UNIT/500 ML PREMIX 15.77 UNIT IV (14:30)
--- NOTE | 2023-02-19 17:05 | PM.PN ---
Subjective Subjective: Patient was seen this morning, he does complain of shortness of breath, does report wheezing, does report shortness of breath, he sitting up in a chair, he tells me he feels short of breath, nursing staff help him, he denies any chest discomfort, venous ultrasound was completed on lower extremities, he was found to have a DVT of his right lower extremity, started on a heparin drip, given his elevated D-dimer and his complaints of shortness of breath, I am very highly suspicious that he indeed does have a pulmonary embolism however cannot perform a CT angiogram given his creatinine, his creatinine is 2.4, will do venous ultrasound, placed on steroids 40 IV every 8 hours, CRP is elevated we will do CT of the chest without contrast start on doxycycline 100 twice daily Vitals/I&O/Wt Last Vital Signs Temp 98.1 F 02/19/23 12:00 Pulse 97 02/19/23 12:00 Resp 17 02/19/23 12:00 BP 113/73 02/19/23 12:00 Pulse Ox 100 02/19/23 12:00 O2 Del Method Room Air 02/19/23 12:00 02/19/23 02/19/23 02/19/23 06:59 14:59 22:59 Intake Total 1090 / 1090 Output Total 700 / 700 125 / 125 Balance -700 / 880 965 / 965 Weight last 48 hrs Weight 56.336 kg Weight 50.349 kg Physical Exam Const: COMMON NORMALS: no acute distress OTHER: Patient has severe protein calorie malnutrition, with evidence of temporal muscle wasting, peripheral muscle wasting, bilateral shoulders, bilateral arms, bilateral thighs, bilateral calves Resp: COMMON NORMALS: normal respiratory effort, No retractions and No use of accessory muscles AUSCULTATION: crackles and wheezes Cardio: COMMON NORMALS: regular rate, regular rhythm, S1 normal heart sound present and S2 normal heart sound present RATE: regular rate RHYTHM: regular rhythm HEART SOUNDS: S1 normal heart sound present and S2 normal heart sound present GI: COMMON NORMALS: Normal to inspection, nondistended, normoactive bowel sounds present and non-tender Extremity: COMMON NORMALS: no pedal edema Psych: COMMON NORMALS: mental status grossly normal Data 02/19/23 00:37 02/19/23 00:37 Micro: Microbiology 02/18/23 13:02 Blood Culture - Preliminary Blood NEGATIVE TO DATE 02/18/23 12:50 Blood Culture - Preliminary Blood NEGATIVE TO DATE A&P Assessment and plan (1) Shortness of breath: - Highly suspicious for pulmonary embolism given right lower extremity DVT, elevated D-dimer -Continue heparin drip -Also component of COPD exacerbation, Solu-Medrol 40 IV every 8 hours -Given elevated CRP, concerns for respiratory tract infection doxycycline 100 twice daily -BNP is 9700, clinically looks dehydrated, avoid diuretic therapy, will avoid fluids (2) FREEMAN (acute kidney injury): -renal US -avoid fluids due to chf, elevated BNP (3) CHF (congestive heart failure): Chronic cardiomyopathy most recent echocardiogram from an outside facility with reduced ejection fraction of 20 to 25% after non-ST elevation, Type II WI in October of this year which was medically managed. At the beginning of the year ejection fraction was 60%. Though he has an elevated BNP currently I suspect this is secondary to acute kidney injury. Clinically does not appear total body volume overloaded and in fact appears quite dry. Previous imaging studies have indicated evidence of pulmonary hypertension. Has not been taking recommended medication regimen for about 2 months. (4) Follicular lymphoma grade 3a: Completed radiation therapy in January of this year. Last chemotherapy was completed in July of this year. Was to be seen today at oncology but because of his shortness of breath and hypoxia was sent to the emergency room. Future plan of care regarding cancer not known at this time. 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 Also stopped taking carvedilol and isosorbide though continues to use as needed nitroglycerin sublingual. (10) Hyperlipidemia: Previously had been on statin but has not taken for a couple of months (11) S/P ileal conduit: Secondary to history of bladder cancer, has urinalysis consistent with urine specimen from conduit with some cellular material noted but with negative nitrites and leukocyte esterase and no recently notable change to urine output (12) Hypothyroidism: chronic diagnosis for which patient has been prescribed levothyroxine. He has not been taking it by report for a couple of months and has normal TSH today. (13) Right leg DVT: (14) Pulmonary embolism: (15) COPD exacerbation: (16) Respiratory tract infection: (17) NSTEMI (non-ST elevated myocardial infarction): - Cardiac echo ordered -Likely type II NSTEMI related to respiratory failure - Plan Patient was seen this morning, he does complain of shortness of breath, does report wheezing, does report shortness of breath, he sitting up in a chair, he tells me he feels short of breath, nursing staff help him, he denies any chest discomfort, venous ultrasound was completed on lower extremities, he was found to have a DVT of his right lower extremity, started on a heparin drip, given his elevated D-dimer and his complaints of shortness of breath, I am very highly suspicious that he indeed does have a pulmonary embolism however cannot perform a CT angiogram given his creatinine, his creatinine is 2.4, will do venous ultrasound, placed on steroids 40 IV every 8 hours, CRP is elevated we will do CT of the chest without contrast start on doxycycline 100 twice daily, order v/q scan Attestations Medical Necessity Statement*: Patient requires hospitalization for right lower extremity DVT, shortness of breath likely secondary to PE, COPD, respiratory tract infection, FREEMAN with creatinine 2.4, NSTEMI likely type II Diagnoses Shortness of breath R06.02 FREEMAN (acute kidney injury) N17.9 CHF (congestive heart failure) I50.9 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
[2023-02-19 17:06] LABS: Glucose Point of Care 214 mg/dL (70-110)
--- NOTE | 2023-02-19 17:06 | CTR_ITS ---
PROCEDURE INFORMATION: Exam: CT Chest Without Contrast; Diagnostic Exam date and time: 02/19/2023 6:16 PM Age: 82 years old Clinical indication: Shortness of breath; Prior surgery; Surgery date: 6+ months; Surgery type: Port, heart; Additional info: SOB TECHNIQUE: Imaging protocol: Diagnostic computed tomography of the chest without contrast. Radiation optimization: All CT scans at this facility use at least one of these dose optimization techniques: automated exposure control; mA and/or kV adjustment per patient size (includes targeted exams where dose is matched to clinical indication); or iterative reconstruction. REPORTING DATA: Count of CT and Cardiac NM exams in prior 12 months: This patient has received 8 known CTs and 0 known cardiac nuclear medicine studies in the 12 months prior to the current study. COMPARISON: CT chest abdpel w/*[id number] 11/23/2022 2:33 PM RADIATION DOSE METRICS: Total DLP (mGy-cm): 287.56 FINDINGS: Lungs: Emphysematous changes. Lingular lobe 2.5 cm suspected nodule, series 3, image 32, new compared to prior exam, consider correlation with CT with intravenous contrast to evaluate for distinction from the adjacent vessels. Left lower lobe 2.3 cm nodule abutting the pleural surface, new compared to prior exam. Left lower lobe 11.3 mm pulmonary nodule, new compared to prior exam. Emphysematous changes with bilateral largely basilar honeycombing with interstitial fibrotic changes. Left anterior chest wall again seen measuring up to at least 8.9 cm, similar to prior exam. Pleural spaces: Unremarkable. No pneumothorax. No pleural effusion. Heart: Unremarkable. No cardiomegaly. No pericardial effusion. Coronary arteries: Coronary artery atherosclerotic calcifications. Lymph nodes: Unremarkable. No enlarged lymph nodes. Vasculature: Unremarkable. No aortic aneurysm. Bones/joints: Sternotomy wires. Soft tissues: Cholelithiasis. CT/CT chest wo con [id number] IMPRESSION: 1. Coronary artery atherosclerotic calcifications. 2. Emphysematous changes. 3. Lingular lobe 2.5 cm suspected nodule, series 3, image 32, new compared to prior exam, consider correlation with CT with intravenous contrast to evaluate for distinction from the adjacent vessels. 4. Left lower lobe 2.3 cm nodule abutting the pleural surface, new compared to prior exam. Left lower lobe 11.3 mm pulmonary nodule, new compared to prior exam. Highly suspicious nodule(s). Consider non-emergent PET/CT, or tissue sampling.(Reference: Bartolo) 5. Left anterior chest wall again seen measuring up to at least 8.9 cm, similar to prior exam. Finding is potentially concerning for underlying malignancy. 6. Emphysematous changes with bilateral largely basilar honeycombing with interstitial fibrotic changes. 7. Cholelithiasis. REFERENCES: Bartolo Brasher, et al. Guidelines for Management of Incidental Pulmonary Nodules Detected on CT Images: From the Fleischner Society 2017. Radiology. 2017;284(1):228-243.
[2023-02-19] MEDS: sucralfate 1 gm Tablet PO (17:25)
[2023-02-19] MEDS: ipratropium-albuterol 3 mL Neb INHALATION (19:36)
[2023-02-19] MEDS: budesonide 0.5 mg/2 mL Neb INHALATION (19:36)
[2023-02-19 20:34] LABS: Glucose Point of Care 223 mg/dL (70-110)
[2023-02-19] MEDS: insulin lispro 100 unit/1 mL SUBCUT (20:39)
[2023-02-19] MEDS: insulin glargine 100 units/1 mL 4 UNIT SUBCUT (20:39)
[2023-02-19] MEDS: doxycycline 100 MG in sodium chloride 0.9% (plus) 100 ML IV (20:40)
[2023-02-19] MEDS: latanoprost 0.005% Op Soln 2.5 mL Btl 1 DROP EYE-BOTH (20:49)
[2023-02-19] MEDS: methylPREDNISolone sod succ 40 MG in water for injection-sterile 1 ML 12 MG IVP (21:10)
[2023-02-19 21:16] LABS: Partial Thromboplastin Time 95.5 SECONDS (23.9-36.7)
[2023-02-20] VITALS (14 sets, daily range): BP systolic 115–130; BP diastolic 66–78; PULSE 64–95; RESP 15–20; TEMP 36.3–36.5; O2SAT 93–100
[2023-02-20] MEDS: TRAMadol 50 mg Tablet PO ×2 (02:00→12:39)
[2023-02-20 04:13] LABS: Basophils % 0.3 %; Eosinophils % 0.2 %; Hematocrit 29.7 % (42.0-52.0); Hemoglobin 9.4 g/dL (11.7-16.6); Lymphocytes # 0.2 10^3/uL (0.8-4.8); Lymphocytes % 3.6 %; Mean Corpuscular HGB Conc 31.6 g/dL (30.0-36.0); Mean Corpuscular Volume 104.2 fl (80-94); Mean Platelet Volume 10.7 fL (7.4-10.4); Monocytes # 0.3 10^3/uL (0.2-0.9); Monocytes % 4.7 %; Neutrophils # 4.69 10^3/uL (1.8-7.7); Neutrophils % 80.9 %; Nucleated Red Blood Cells % 0 %; Platelet Count 119 10^3/cmm (130-400); Red Blood Count 2.85 10^6/uL (4.1-5.3); Red Cell Distribution Width 13.4 % (12.1-15.1); White Blood Count 5.8 10^3/uL (4.0-10.0)
[2023-02-20 04:24] LABS: Partial Thromboplastin Time 57.8 SECONDS (23.9-36.7)
[2023-02-20 04:32] LABS: Anion Gap 18.8 (5-19); Blood Urea Nitrogen 45 mg/dL (8-23); Calcium 9.3 mg/dL (8.5-10.5); Carbon Dioxide 17 mmol/L (22-29); Chloride 104 mmol/L (98-107); Glucose 300 mg/dL (65-115); Osmolality Calculated 301 mOsm/kg (285-295); Potassium 5.8 mmol/L (3.5-5.1); Sodium 134 mmol/L (136-145)
[2023-02-20 04:33] LABS: C Reactive Protein 214.1 mg/L (0.0-4.9)
[2023-02-20 04:37] LABS: Slide Review Slide Review Perform
[2023-02-20 04:38] LABS: Procalcitonin 0.31 ng/mL (0-0.5)
[2023-02-20] MEDS: sucralfate 1 gm Tablet PO ×2 (06:02→17:45)
[2023-02-20] MEDS: pantoprazole DR 40 mg Tablet PO ×2 (06:02→17:46)
[2023-02-20 06:21] LABS: Glucose Point of Care 270 mg/dL (70-110)
[2023-02-20] MEDS: ipratropium-albuterol 3 mL Neb INHALATION ×2 (08:25→20:10)
[2023-02-20] MEDS: budesonide 0.5 mg/2 mL Neb INHALATION ×2 (08:25→20:09)
[2023-02-20] MEDS: docusate sodium 100 mg Capsule PO ×2 (08:35→17:45)
[2023-02-20] MEDS: doxycycline 100 MG in sodium chloride 0.9% (plus) 100 ML IV ×2 (08:35→21:38)
[2023-02-20] MEDS: sodium polystyrene sulfonate 15 gm/60 mL Btl PO (08:36)
[2023-02-20] MEDS: oxyCODONE 5 mg IR Tab/Cap PO ×2 (08:36→17:46)
[2023-02-20] MEDS: methylPREDNISolone sod succ 40 MG in water for injection-sterile 1 ML 12 MG IVP (08:36)
[2023-02-20] MEDS: aspirin 81 mg EC Tablet PO (08:36)
[2023-02-20] MEDS: ondansetron 4 MG Tablet PO (08:36)
[2023-02-20] MEDS: magnesium lactate 84 mg Tablet PO ×2 (08:36→17:45)
[2023-02-20] MEDS: clopidogrel 75 mg Tablet PO (08:36)
[2023-02-20] MEDS: insulin glargine 100 units/1 mL 4 UNIT SUBCUT ×2 (10:15→21:41)
--- NOTE | 2023-02-20 11:06 | PC.OT ---
HOLD OT EVALUATION TODAY PER DR. GRAJEDA SECONDARY TO POSSIBLE PE.
--- NOTE | 2023-02-20 11:13 | PC.NUTR ---
Consult for PCM received. Agree with recommendations already made: add Glucerna TID, assist w/feeding PRN and consider SLEP evaluation. Details in RD assessment.
[2023-02-20 11:25] LABS: Glucose Point of Care 346 mg/dL (70-110)
[2023-02-20] MEDS: insulin lispro 100 unit/1 mL SUBCUT ×3 (12:12→21:43)
[2023-02-20] MEDS: heparin 5,000 unit/mL INJ 1 mL IV (12:13)
[2023-02-20 12:19] LABS: Anion Gap 21.3 (5-19); Blood Urea Nitrogen 45 mg/dL (8-23); Calcium 9.4 mg/dL (8.5-10.5); Carbon Dioxide 16 mmol/L (22-29); Chloride 103 mmol/L (98-107); Glucose 399 mg/dL (65-115); Osmolality Calculated 308 mOsm/kg (285-295); Potassium 5.3 mmol/L (3.5-5.1); Sodium 135 mmol/L (136-145)
--- NOTE | 2023-02-20 14:44 | P.PN_ITS ---
Subjective Subjective: Patient was seen this morning, does report generalized weakness, fatigue, no bloody or black stools reported she is alert to person, to place, not to time, does report chest discomfort, does report bilateral lower extremity discomfort Vitals/I&O/Wt Last Vital Signs Temp 97.5 F L 02/20/23 11:29 Pulse 92 02/20/23 11:29 Resp 16 02/20/23 11:29 BP 122/66 02/20/23 11:29 Pulse Ox 97 02/20/23 11:29 O2 Del Method Room Air 02/20/23 11:29 02/19/23 02/20/23 02/20/23 22:59 06:59 14:59 Intake Total 460.852 / 1550.852 226.7 / 1777.552 687.817 / 687.817 Output Total 475 / 600 Balance -14.148 / 950.852 226.7 / 1177.552 687.817 / 687.817 Weight last 48 hrs Weight 55.849 kg Weight 56.336 kg Physical Exam Const: COMMON NORMALS: no acute distress ORIENTATION/CONSCIOUSNESS: Yes awake, Yes oriented to person and Yes oriented to place Resp: COMMON NORMALS: normal respiratory effort, No retractions, No use of accessory muscles and clear to auscultation bilaterally AUSCULTATION: clear to auscultation bilaterally Cardio: COMMON NORMALS: regular rate, regular rhythm, S1 normal heart sound present and S2 normal heart sound present RATE: regular rate RHYTHM: regular rhythm HEART SOUNDS: S1 normal heart sound present and S2 normal heart sound present GI: COMMON NORMALS: Normal to inspection, nondistended, normoactive bowel sounds present and non-tender Extremity: COMMON NORMALS: no pedal edema Neuro: SENSORIUM/ORIENTATION: Yes oriented to person and Yes oriented to place Psych: COMMON NORMALS: mental status grossly normal Data 02/20/23 04:03 02/20/23 11:47 Micro: Microbiology 02/18/23 13:02 Blood Culture - Preliminary Blood NEGATIVE TO DATE 02/18/23 12:50 Blood Culture - Preliminary Blood NEGATIVE TO DATE A&P Assessment and plan (1) Shortness of breath: - Highly suspicious for pulmonary embolism given right lower extremity DVT, elevated D-dimer -Continue heparin drip -Also component of COPD exacerbation, Solu-Medrol 40 IV every 8 hours -Given elevated CRP, concerns for respiratory tract infection doxycycline 100 twice daily -BNP is 9700, clinically looks dehydrated, avoid diuretic therapy, will avoid fluids ? We will order VQ scan (2) FREEMAN (acute kidney injury): -renal US -avoid fluids due to chf, elevated BNP (3) CHF (congestive heart failure): Chronic cardiomyopathy most recent echocardiogram from an outside facility with reduced ejection fraction of 20 to 25% after non-ST elevation, Type II [place] in October of this year which was medically managed. At the beginning of the year e jection fraction was 60%. Though he has an elevated BNP currently I suspect this is secondary to acute kidney injury. Clinically does not appear total body volume overloaded and in fact appears quite dry. Previous imaging studies have indicated evidence of pulmonary hypertension. Has not been taking recommended medication regimen for about 2 months. (4) Follicular lymphoma grade 3a: Completed radiation therapy in January of this year. Last chemotherapy was comple nilesh in July of this year. Was to be seen today at oncology but because of his shortness of breath and hypoxia was sent to the emergency room. Future plan of care regarding cancer not known at this time. 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 Also stopped taking carvedilol and isosorbide though continues to use as needed nitroglycerin sublingual. (10) Hyperlipidemia: Previously had been on statin but has not taken for a couple of months (11) S/P ileal conduit: Secondary to history of bladder cancer, has urinalysis consistent with urine specimen from conduit with some cellular material noted but with negative nitrites and leukocyte esterase and no recently notable change to urine output (12) Hypothyroidism: chronic diagnosis for which patient has been prescribed levothyroxine. He has not been taking it by report for a couple of months and has normal TSH today. (13) Right leg DVT: Currently on heparin drip (14) Pulmonary embolism: Will order VQ scan (15) COPD exacerbation: (16) Respiratory tract infection: (17) NSTEMI (non-ST elevated myocardial infarction): - Cardiac echo ordered -Likely type II NSTEMI related to respiratory failure - (18) Protein calorie malnutrition: Severe protein calorie malnutrition, with physical deconditioning, with cancer cachexia ? Consult PT OT ? Consult dietary ? 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: Plan Continue heparin dripWill order ventilation/perfusion scan, highly suspicious for pulmonary embolism,, titrate based on PTT, NSTEMI, continue antibiotics, de- escalate steroid therapy PT OT, dietary eval, FREEMAN, creatinine 2.2 Attestations Medical Necessity Statement*: Patient requires hospitalization for right lower extremity DVT, pulmonary embolism, physical deconditioning, protein, malnutrition, cancer cachexia, FREEMAN Diagnoses Shortness of breath R06.02 FREEMAN (acute kidney injury) N17.9 CHF (congestive heart failure) I50.9 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 Protein calorie malnutrition E46 Physical deconditioning R53.81 Cancer cachexia R64
[2023-02-20 16:45] LABS: Glucose Point of Care 438 mg/dL (70-110)
--- NOTE | 2023-02-20 17:12 | NM_ITS ---
WS: [id number] NUCLEAR MEDICINE VENTILATION/PERFUSION LUNG SCAN HISTORY: rle dvt COMPARISON: Chest radiograph 02/18/2023. TECHNIQUE: Ventilation: 32.6 mCi of Technetium 99 DTPA aerosol inhaled. Perfusion: 5.5 mCi of technetium 99m MAA IV. The study is significantly compromised by patient's chronic lung disease. There is deposition of the radionuclide centrally during ventilation. Very coarse and suboptimal uptake during ventilation. Ther e are also patchy areas of decreased activity on the perfusion scan. There are matched and unmatched defects bilaterally, greatest in the lower lobes. The unmatched defects are bilateral particularly in the lower lobes. Highly suspicious for pulmonary embolism. IMPRESSION: Highly suspicious for pulmonary emboli. Bilateral lower lobe unmatched perfusion defects.
--- NOTE | 2023-02-20 19:04 | PC.NURSE ---
Urostomy bag changed by this nurse at approximately 1700 this evening.
[2023-02-20 21:41] LABS: Glucose Point of Care 198 mg/dL (70-110)
[2023-02-20] MEDS: latanoprost 0.005% Op Soln 2.5 mL Btl 1 DROP EYE-BOTH (21:41)
[2023-02-21] VITALS (11 sets, daily range): BP systolic 116–152; BP diastolic 66–78; PULSE 66–92; RESP 16–19; TEMP 36.4–36.6; O2SAT 94–99
[2023-02-21] MEDS: heparin drip 25,000 UNIT/500 ML PREMIX 16 UNIT IV (00:27)
[2023-02-21 02:56] LABS: Basophils % 0.1 %; Hematocrit 26.6 % (42.0-52.0); Hemoglobin 8.4 g/dL (11.7-16.6); Lymphocytes # 0.4 10^3/uL (0.8-4.8); Lymphocytes % 5.6 %; Mean Corpuscular HGB Conc 31.6 g/dL (30.0-36.0); Mean Corpuscular Hemoglobin 32.2 pg (28.0-34.0); Mean Corpuscular Volume 101.9 fl (80-94); Mean Platelet Volume 10.4 fL (7.4-10.4); Monocytes # 0.7 10^3/uL (0.2-0.9); Monocytes % 10.2 %; Neutrophils % 75.2 %; Nucleated Red Blood Cells % 0 %; Platelet Count 158 10^3/cmm (130-400); Red Blood Count 2.61 10^6/uL (4.1-5.3); Red Cell Distribution Width 13.5 % (12.1-15.1); White Blood Count 7.2 10^3/uL (4.0-10.0)
[2023-02-21 03:05] LABS: Partial Thromboplastin Time 49.6 SECONDS (23.9-36.7)
[2023-02-21 03:16] LABS: Anion Gap 16.7 (5-19); Blood Urea Nitrogen 52 mg/dL (8-23); Calcium 8.9 mg/dL (8.5-10.5); Carbon Dioxide 20 mmol/L (22-29); Chloride 106 mmol/L (98-107); Glucose 178 mg/dL (65-115); Osmolality Calculated 304 mOsm/kg (285-295); Potassium 4.7 mmol/L (3.5-5.1); Sodium 138 mmol/L (136-145)
[2023-02-21 03:19] LABS: Procalcitonin 0.26 ng/mL (0-0.5)
[2023-02-21 03:38] LABS: Slide Review Slide Review Perform
[2023-02-21] MEDS: sucralfate 1 gm Tablet PO ×2 (05:16→17:30)
[2023-02-21] MEDS: TRAMadol 50 mg Tablet PO ×2 (05:16→17:31)
[2023-02-21] MEDS: pantoprazole DR 40 mg Tablet PO (05:16)
[2023-02-21 06:51] LABS: Glucose Point of Care 214 mg/dL (70-110)
[2023-02-21] MEDS: budesonide 0.5 mg/2 mL Neb INHALATION ×2 (07:15→20:16)
[2023-02-21] MEDS: clopidogrel 75 mg Tablet PO (08:48)
[2023-02-21] MEDS: oxyCODONE 5 mg IR Tab/Cap PO (08:48)
[2023-02-21] MEDS: magnesium lactate 84 mg Tablet PO ×2 (08:48→17:30)
[2023-02-21] MEDS: ondansetron 4 MG Tablet PO (08:48)
[2023-02-21] MEDS: docusate sodium 100 mg Capsule PO ×2 (08:48→17:30)
[2023-02-21] MEDS: aspirin 81 mg EC Tablet PO (08:48)
[2023-02-21] MEDS: insulin lispro 100 unit/1 mL SUBCUT ×2 (08:48→21:06)
[2023-02-21] MEDS: predniSONE 20 mg Tablet 40 MG PO (08:48)
[2023-02-21] MEDS: insulin glargine 100 units/1 mL 4 UNIT SUBCUT ×2 (08:48→21:06)
[2023-02-21] MEDS: doxycycline 100 MG in sodium chloride 0.9% (plus) 100 ML IV ×2 (09:34→21:03)
[2023-02-21 09:42] LABS: Partial Thromboplastin Time 57.7 SECONDS (23.9-36.7)
[2023-02-21 09:49] LABS: Ferritin 822 ng/mL (30-400); Iron 45 ug/dL (59-158)
[2023-02-21 11:26] LABS: Glucose Point of Care 99 mg/dL (70-110)
--- NOTE | 2023-02-21 12:06 | CTR_ITS ---
PROCEDURE INFORMATION: Exam: CT Abdomen And Pelvis Without Contrast Exam date and time: 02/22/2023 12:22 AM Age: 82 years old Clinical indication: Prior surgery; Surgery date: 6+ months; Surgery type: Cabg. Colectomy. Ileostomy. Urostomy. Prostatectomy. Patient HX: Anemia with weight loss. History of lymphoma and prostate cancer. ; Additional info: Weight loss, anemia, TECHNIQUE: Imaging protocol: Computed tomography of the abdomen and pelvis without contrast. Radiation optimization: All CT scans at this facility use at least one of these dose optimization techniques: automated exposure control; mA and/or kV adjustment per patient size (includes targeted exams where dose is matched to clinical indication); or iterative reconstruction. REPORTING DATA: Count of CT and Cardiac NM exams in prior 12 months: This patient has received 9 known CTs and 0 known cardiac nuclear medicine studies in the 12 months prior to the current study. COMPARISON: CT chest abdpel w/*[id number] 11/23/2022 2:33 PM RADIATION DOSE METRICS: Total DLP (mGy-cm): 348.36 FINDINGS: Tubes, catheters and devices: Surgical clips are seen scattered along the pelvis bilaterally. Lungs: Extensive centrilobular emphysema is present. There are bilateral subpleural reticular opacities and honeycombing, consistent with pulmonary fibrosis. Heart: Mildly enlarged heart. Coronary atherosclerotic calcifications seen. No pericardial effusion. Liver: Normal. No mass. Gallbladder and bile ducts: Cholelithiasis is present. No pericholecystic inflammatory changes to suggest cholecystitis. Pancreas: Normal. No ductal dilation. Spleen: Normal. No splenomegaly. Adrenal glands: Normal. No mass. Kidneys and ureters: There is a 0.3 cm nonobstructing stone in the left lower kidney. No hydronephrosis. Stomach and bowel: There is diverticulosis without evidence of diverticulitis. Appendix: No evidence of appendicitis. Intraperitoneal space: Unremarkable. No free air. No significant fluid collection. Vasculature: Moderate diffuse atherosclerotic disease is present. Lymph nodes: Unremarkable. No enlarged lymph nodes. Urinary bladder: See Reproductive finding. Reproductive: The patient is status post prostatectomy, cystectomy and creation of urinary diversion in the right lower quadrant. The right testicle is seen within the right inguinal canal. Bones/joints: Degenerative changes of the spine seen. Soft tissues: A small fat containing left inguinal hernia is present. CT/CT abdomen pelvis wo con [id number] IMPRESSION: No acute finding.
[2023-02-21 12:42] LABS: Hematocrit 27.7 % (42.0-52.0); Hemoglobin 8.9 g/dL (11.7-16.6)
[2023-02-21 15:22] LABS: Partial Thromboplastin Time 92.7 SECONDS (23.9-36.7)
--- NOTE | 2023-02-21 16:10 | PM.PN ---
Subjective Subjective: - Patient was seen this morning, he is alert to person, to place, not to time, when asked why he is here in the hospital he really cannot provide an clear answer he does follow commands I am not exactly sure he understands the brevity of the situation, or understands what is going on with him so I again explained to him that he is here for FREEMAN, his he is here for right lower extremity DVT and pulmonary embolism, and that there is been concerns for his low weight, he tells me that his daughter and son-in-law help take care of him, that it is his desire for him to go home -I discussed with patient his anemia, I am worried about his anemia especially as he is on heparin, I am waiting on his Hemoccult stool, but as he is on heparin for his DVT and PE, he has a risk of GI bleeds and morbidity and mortality and if we stop anticoagulation he has a risk of morbidity and mortality, I also discussed IVC filter placement, however I do not think he had a good understanding of what I discussed with him, and I repeated multiple times to him, however do not feel that he really understood. For now I will watch his hemoglobin here in the hospital, watch his CBC as he is on heparin, await his Hemoccult stool, certainly an IVC filter would be a plan if he does develop a significant GI bleed -I was able to reach patient's daughter Talisha Peck, I discussed his underlying follicular lymphoma, she tells me that Dr. Blanton was discussing with family about possible feeding tube placement, due to his low BMI and his drastic weight loss, however patient declined he told Dr. Blanton he did not want any life-sustaining measures, they also have considered hospice but no decision has been made, she tells me that he has been drastically declining over the last few months have been losing weight, has been having a poor appetite, I discussed options including hospice, versus half-way placement however patient's daughter wants to discuss with Ehsan, I advised daughter that we can have a family meeting this afternoon, when she comes to the hospital and she was agreeable -I also discussed patient's PE, DVT, now GI bleed as above, discussed possible IVC filter placement however his daughter was not very keen on IVC filter placement, -I also spoke to Dr. Zhang about the case, he believes that hospice is very reasonable, and certainly can help in any way if needed -I had a family meeting with patient and daughter at bedside, again had an extensive discussion about patient's underlying B-cell lymphoma, currently his adult failure to thrive, weight loss, cancer cachexia, no his PE, his DVT his GI bleed, his physical deconditioning, after discussing the risk and benefits of all options, they voiced understanding, all questions answered, for now they want to proceed with half-way placement Vitals/I&O/Wt Last Vital Signs Temp 97.8 F 02/21/23 12:00 Pulse 92 02/21/23 12:00 Resp 17 02/21/23 12:00 BP 144/78 02/21/23 12:00 Pulse Ox 94 02/21/23 12:00 O2 Del Method Room Air 02/21/23 12:00 02/21/23 02/21/23 02/21/23 06:59 14:59 22:59 Intake Total 370.533 / 1504.050 340 / 340 Output Total 450 / 600 150 / 150 Balance -79.467 / 904.050 190 / 190 Weight last 48 hrs Weight 56.245 kg Weight 55.849 kg Physical Exam Const: COMMON NORMALS: no acute distress HENMT: COMMON NORMALS: normocephalic HEAD & SCALP: normocephalic Resp: COMMON NORMALS: normal respiratory effort, No retractions, No use of accessory muscles and clear to auscultation bilaterally AUSCULTATION: clear to auscultation bilaterally Cardio: COMMON NORMALS: regular rate, regular rhythm, S1 normal heart sound present and S2 normal heart sound present RATE: regular rate RHYTHM: regular rhythm HEART SOUNDS: S1 normal heart sound present and S2 normal heart sound present GI: COMMON NORMALS: Normal to inspection, nondistended, normoactive bowel sounds present, non-tender, no masses and no bruits Extremity: COMMON NORMALS: no pedal edema Data 02/21/23 12:30 02/21/23 02:30 A&P Assessment and plan (1) Shortness of breath: - Secondary to pulmonary embolism seen on VQ scan -Continue heparin drip -Also component of COPD exacerbation, switch to prednisone 40 mg daily -Given elevated CRP, concerns for respiratory tract infection doxycycline 100 twice daily -BNP is 9700, clinically looks dehydrated, avoid diuretic therapy, will avoid fluids (2) FREEMAN (acute kidney injury): -Improving 1.9 -avoid fluids due to chf, elevated BNP (3) CHF (congestive heart failure): Chronic cardiomyopathy most recent echocardiogram from an outside facility with reduced ejection fraction of 20 to 25% after non-ST elevation, Type II [place] in October of this year which was medically managed. At the beginning of the year ejection fraction was 60%. Though he has an elevated BNP currently I suspect this is secondary to acute kidney injury. Clinically does not appear total body volume overloaded and in fact appears quite dry. Previous imaging studies have indicated evidence of pulmonary hypertension. Has not been taking recommended medication regimen for about 2 months. (4) Follicular lymphoma grade 3a: Completed radiation therapy in January of this year. Last chemotherapy was completed in July of this year. Was to be seen today at oncology but because of his shortness of breath and hypoxia was sent to the emergency room. Future plan of care regarding cancer not known at this time. 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 Also stopped taking carvedilol and isosorbide though continues to use as needed nitroglycerin sublingual. (10) Hyperlipidemia: Previously had been on statin but has not taken for a couple of months (11) S/P ileal conduit: Secondary to history of bladder cancer, has urinalysis consistent with urine specimen from conduit with some cellular material noted but with negative nitrites and leukocyte esterase and no recently notable change to urine output (12) Hypothyroidism: chronic diagnosis for which patient has been prescribed levothyroxine. He has not been taking it by report for a couple of months and has normal TSH today. (13) Right leg DVT: Currently on heparin drip (14) Pulmonary embolism: (15) COPD exacerbation: (16) Respiratory tract infection: (17) NSTEMI (non-ST elevated myocardial infarction): - Cardiac echo ordered -Likely type II NSTEMI related to respiratory failure - (18) Protein calorie malnutrition: Severe protein calorie malnutrition, with physical deconditioning, with cancer cachexia ? Consult PT OT ? Consult dietary ? 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: (21) GI bleed: -will monitor hemoglobin -iron studies -monitor hydrodynamics -monitor danial she is on heparin drip -hemmocult stool -protonix, carafate - Plan Continue heparin drip, monitor hemoglobin, start ritalin Attestations Medical Necessity Statement*: patient needs hospitalization for pe, dvt, now gi bleed, protien venkat malnutrition and High Time for a total of 70 minutes, includes reviewing past or interval history, examining/interviewing patient, placing orders, counseling patient/family/other support, updating patient/family/other support, discussing plan of care with staff, communicating with other healthcare providers, documenting encounter and coordinating care Diagnoses Shortness of breath R06.02 FREEMAN (acute kidney injury) N17.9 CHF (congestive heart failure) I50.9 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 Protein calorie malnutrition E46 Physical deconditioning R53.81 Cancer cachexia R64 GI bleed K92.2
[2023-02-21 17:02] LABS: Glucose Point of Care 256 mg/dL (70-110)
[2023-02-21] MEDS: pantoprazole 40 mg SDV IVP (17:31)
[2023-02-21] MEDS: methylphenidate 10 mg Tablet 5 MG PO (17:31)
[2023-02-21 18:45] LABS: Hemoglobin 8.4 g/dL (11.7-16.6)
[2023-02-21] MEDS: ipratropium-albuterol 3 mL Neb INHALATION (20:16)
[2023-02-21 21:00] LABS: Glucose Point of Care 325 mg/dL (70-110)
[2023-02-21] MEDS: latanoprost 0.005% Op Soln 2.5 mL Btl 1 DROP EYE-BOTH (21:03)
[2023-02-22] VITALS (13 sets, daily range): BP systolic 118–164; BP diastolic 53–82; PULSE 66–102; RESP 15–18; TEMP 36.4–36.8; O2SAT 92–100
[2023-02-22 04:21] LABS: Basophils % 0.2 %; Hematocrit 25.8 % (42.0-52.0); Hemoglobin 8.2 g/dL (11.7-16.6); Lymphocytes # 0.2 10^3/uL (0.8-4.8); Mean Corpuscular HGB Conc 31.8 g/dL (30.0-36.0); Mean Corpuscular Hemoglobin 32.8 pg (28.0-34.0); Mean Corpuscular Volume 103.2 fl (80-94); Mean Platelet Volume 10.1 fL (7.4-10.4); Monocytes # 0.5 10^3/uL (0.2-0.9); Neutrophils # 4.03 10^3/uL (1.8-7.7); Neutrophils % 76.3 %; Nucleated Red Blood Cells % 0 %; Platelet Count 189 10^3/cmm (130-400); Red Cell Distribution Width 13.4 % (12.1-15.1); White Blood Count 5.3 10^3/uL (4.0-10.0)
[2023-02-22 04:39] LABS: Partial Thromboplastin Time 65.9 SECONDS (23.9-36.7)
[2023-02-22 04:44] LABS: Anion Gap 14.9 (5-19); Blood Urea Nitrogen 48 mg/dL (8-23); Calcium 9.1 mg/dL (8.5-10.5); Carbon Dioxide 20 mmol/L (22-29); Chloride 108 mmol/L (98-107); Glucose 237 mg/dL (65-115); Osmolality Calculated 306 mOsm/kg (285-295); Potassium 4.9 mmol/L (3.5-5.1); Sodium 138 mmol/L (136-145)
[2023-02-22 04:45] LABS: C Reactive Protein 70.3 mg/L (0.0-4.9)
[2023-02-22 04:49] LABS: Procalcitonin 0.16 ng/mL (0-0.5)
[2023-02-22 04:53] LABS: Slide Review Slide Review Perform
[2023-02-22] MEDS: pantoprazole 40 mg SDV IVP ×2 (05:10→18:43)
[2023-02-22] MEDS: sucralfate 1 gm Tablet PO ×2 (05:45→17:34)
[2023-02-22] MEDS: heparin drip 25,000 UNIT/500 ML PREMIX 13.87 UNIT IV (05:45)
[2023-02-22 06:42] LABS: Glucose Point of Care 226 mg/dL (70-110)
[2023-02-22] MEDS: budesonide 0.5 mg/2 mL Neb INHALATION ×2 (07:27→20:52)
[2023-02-22] MEDS: ipratropium-albuterol 3 mL Neb INHALATION (07:28)
[2023-02-22] MEDS: docusate sodium 100 mg Capsule PO ×2 (09:36→17:34)
[2023-02-22] MEDS: aspirin 81 mg EC Tablet PO (09:36)
[2023-02-22] MEDS: methylphenidate 10 mg Tablet 5 MG PO ×2 (09:36→17:34)
[2023-02-22] MEDS: doxycycline 100 mg Tablet PO ×2 (09:37→17:34)
[2023-02-22] MEDS: clopidogrel 75 mg Tablet PO (09:37)
[2023-02-22] MEDS: insulin lispro 100 unit/1 mL SUBCUT ×3 (09:37→20:44)
[2023-02-22] MEDS: predniSONE 20 mg Tablet 40 MG PO (09:37)
[2023-02-22] MEDS: magnesium lactate 84 mg Tablet PO ×2 (09:37→17:34)
[2023-02-22] MEDS: insulin glargine 100 units/1 mL 8 UNIT SUBCUT ×2 (10:01→20:43)
[2023-02-22 11:10] LABS: Hemoglobin 9.9 g/dL (11.7-16.6)
[2023-02-22 11:25] LABS: Glucose Point of Care 237 mg/dL (70-110)
--- NOTE | 2023-02-22 11:32 | PC.SOCIAL ---
IMM Update: IMM Update. Page 2 of IMM updated/reviewed with pt at 7115. Copy provided and placed in pt file.
--- NOTE | 2023-02-22 14:24 | PM.PN ---
Subjective Subjective: Patient was seen this morning, he is sitting up in a chair, denies any fevers, no chills, no cough alert to person, to place, not to time, Vitals/I&O/Wt Last Vital Signs Temp 97.6 F 02/22/23 07:26 Pulse 102 H 02/22/23 12:00 Resp 17 02/22/23 12:00 BP 138/74 02/22/23 12:00 Pulse Ox 100 02/22/23 12:00 O2 Del Method Room Air 02/22/23 07:28 02/21/23 02/22/23 02/22/23 22:59 06:59 14:59 Intake Total 519.23 / 859.23 360.729 / 1219.959 Output Total 200 / 350 Balance 319.23 / 509.23 360.729 / 869.959 Weight last 48 hrs Weight 54.476 kg Weight 56.245 kg Physical Exam Const: COMMON NORMALS: no acute distress Resp: COMMON NORMALS: normal respiratory effort, No retractions, No use of accessory muscles and clear to auscultation bilaterally AUSCULTATION: clear to auscultation bilaterally Cardio: COMMON NORMALS: regular rate, regular rhythm, S1 normal heart sound present and S2 normal heart sound present RATE: regular rate RHYTHM: regular rhythm HEART SOUNDS: S1 normal heart sound present and S2 normal heart sound present GI: COMMON NORMALS: Normal to inspection, nondistended, normoactive bowel sounds present and non-tender Extremity: COMMON NORMALS: no pedal edema Data 02/22/23 10:58 02/22/23 04:09 A&P Assessment and plan (1) Shortness of breath: - Secondary to pulmonary embolism seen on VQ scan -Continue heparin drip -Also component of COPD exacerbation, switch to prednisone 40 mg daily -Given elevated CRP, concerns for respiratory tract infection doxycycline 100 twice daily -BNP is 9700, clinically looks dehydrated, avoid diuretic therapy, will avoid fluids (2) FREEMAN (acute kidney injury): -Improving 1.6 -avoid fluids due to chf, elevated BNP (3) CHF (congestive heart failure): Chronic cardiomyopathy most recent echocardiogram from an outside facility with reduced ejection fraction of 20 to 25% after non-ST elevation, Type II [place] in October of this year which was medically managed. At the beginning of the year ejection fraction was 60%. Though he has an elevated BNP currently I suspect this is secondary to acute kidney injury. Clinically does not appear total body volume overloaded and in fact appears quite dry. Previous imaging studies have indicated evidence of pulmonary hypertension. Has not been taking recommended medication regimen for about 2 months. (4) Follicular lymphoma grade 3a: Completed radiation therapy in January of this year. Last chemotherapy was completed in July of this year. Was to be seen today at oncology but because of his shortness of breath and hypoxia was sent to the emergency room. Future plan of care regarding cancer not known at this time. 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 Also stopped taking carvedilol and isosorbide though continues to use as needed nitroglycerin sublingual. (10) Hyperlipidemia: Previously had been on statin but has not taken for a couple of months (11) S/P ileal conduit: Secondary to history of bladder cancer, has urinalysis consistent with urine specimen from conduit with some cellular material noted but with negative nitrites and leukocyte esterase and no recently notable change to urine output (12) Hypothyroidism: chronic diagnosis for which patient has been prescribed levothyroxine. He has not been taking it by report for a couple of months and has normal TSH today. (13) Right leg DVT: Currently on heparin drip (14) Pulmonary embolism: (15) COPD exacerbation: (16) Respiratory tract infection: (17) NSTEMI (non-ST elevated myocardial infarction): - Cardiac echo ordered -Likely type II NSTEMI related to respiratory failure - (18) Protein calorie malnutrition: Severe protein calorie malnutrition, with physical deconditioning, with cancer cachexia ? Consult PT OT ? Consult dietary ? 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 9 -iron studies show evidence of early iron deficiency anemia -monitor hydrodynamics -monitor danial she is on heparin drip -hemmocult stool -protonix, carafate - Plan Continue heparin drip, monitor hemoglobin, start ritalin Attestations Medical Necessity Statement*: Patient requires hospitalization for DVT PE, no GI bleed anemia requiring monitoring as inpatient Diagnoses Shortness of breath R06.02 FREEMAN (acute kidney injury) N17.9 CHF (congestive heart failure) I50.9 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 Protein calorie malnutrition E46 Physical deconditioning R53.81 Cancer cachexia R64 GI bleed K92.2
[2023-02-22] MEDS: oxyCODONE 5 mg IR Tab/Cap PO (15:14)
[2023-02-22 17:14] LABS: Glucose Point of Care 422 mg/dL (70-110)
[2023-02-22] MEDS: heparin 5,000 unit/mL INJ 1 mL IV (18:43)
[2023-02-22] MEDS: TRAMadol 50 mg Tablet PO (19:39)
[2023-02-22 20:43] LABS: Glucose Point of Care 357 mg/dL (70-110)
[2023-02-22] MEDS: latanoprost 0.005% Op Soln 2.5 mL Btl 1 DROP EYE-BOTH (20:44)
[2023-02-23] VITALS (15 sets, daily range): BP systolic 115–144; BP diastolic 62–71; PULSE 76–100; RESP 16–22; TEMP 36.4–37; O2SAT 95–100
[2023-02-23 01:24] LABS: Partial Thromboplastin Time 99.7 SECONDS (23.9-36.7)
[2023-02-23] MEDS: sucralfate 1 gm Tablet PO ×2 (05:12→18:02)
[2023-02-23 05:44] LABS: Basophils % 0.2 %; Hematocrit 29.6 % (42.0-52.0); Hemoglobin 9.3 g/dL (11.7-16.6); Lymphocytes # 0.3 10^3/uL (0.8-4.8); Lymphocytes % 6.3 %; Mean Corpuscular HGB Conc 31.4 g/dL (30.0-36.0); Mean Corpuscular Hemoglobin 32.4 pg (28.0-34.0); Mean Corpuscular Volume 103.1 fl (80-94); Mean Platelet Volume 10.6 fL (7.4-10.4); Monocytes # 0.5 10^3/uL (0.2-0.9); Monocytes % 9.4 %; Neutrophils # 3.49 10^3/uL (1.8-7.7); Nucleated Red Blood Cells % 0 %; Platelet Count 195 10^3/cmm (130-400); Red Blood Count 2.87 10^6/uL (4.1-5.3); Red Cell Distribution Width 13.5 % (12.1-15.1); White Blood Count 4.8 10^3/uL (4.0-10.0)
[2023-02-23 06:03] LABS: Alanine Aminotransferase < 5 U/L (0-41); Alkaline Phosphatase 64 U/L (40-130); Anion Gap 14.2 (5-19); Aspartate Amino Transferase 12 U/L (0-40); Blood Urea Nitrogen 48 mg/dL (8-23); Calcium 9.6 mg/dL (8.5-10.5); Carbon Dioxide 21 mmol/L (22-29); Chloride 109 mmol/L (98-107); Globulin 2.6 g/dL (1.3-4.6); Glucose 162 mg/dL (65-115); Osmolality Calculated 304 mOsm/kg (285-295); Phosphorus 1.8 mg/dL (2.5-4.5); Potassium 5.2 mmol/L (3.5-5.1); Sodium 139 mmol/L (136-145); Total Bilirubin 0.2 mg/dL (0.15-1.2); Total Protein 5.6 g/dL (6.6-8.7)
[2023-02-23] MEDS: pantoprazole 40 mg SDV IVP ×2 (06:23→18:25)
[2023-02-23 06:41] LABS: Neutrophils % 84.1 %
[2023-02-23 06:42] LABS: Slide Review Slide Review Perform
[2023-02-23 06:43] LABS: Glucose Point of Care 235 mg/dL (70-110)
[2023-02-23] MEDS: methylphenidate 10 mg Tablet 5 MG PO ×2 (08:04→18:02)
[2023-02-23] MEDS: magnesium lactate 84 mg Tablet PO ×2 (08:04→18:02)
[2023-02-23] MEDS: doxycycline 100 mg Tablet PO ×2 (08:04→18:02)
[2023-02-23] MEDS: predniSONE 20 mg Tablet 40 MG PO (08:05)
[2023-02-23] MEDS: insulin glargine 100 units/1 mL 8 UNIT SUBCUT ×2 (08:05→22:01)
[2023-02-23] MEDS: aspirin 81 mg EC Tablet PO (08:06)
[2023-02-23] MEDS: insulin lispro 100 unit/1 mL SUBCUT ×4 (08:06→22:02)
[2023-02-23] MEDS: docusate sodium 100 mg Capsule PO ×2 (08:06→18:02)
[2023-02-23] MEDS: clopidogrel 75 mg Tablet PO (08:06)
[2023-02-23 08:20] LABS: Partial Thromboplastin Time 63.3 SECONDS (23.9-36.7)
[2023-02-23] MEDS: apixaban 5 mg Tablet 10 MG PO ×2 (09:04→20:40)
[2023-02-23] MEDS: oxyCODONE 5 mg IR Tab/Cap PO ×2 (09:04→20:40)
[2023-02-23] MEDS: budesonide 0.5 mg/2 mL Neb INHALATION ×2 (09:10→19:36)
[2023-02-23] MEDS: ipratropium-albuterol 3 mL Neb INHALATION ×2 (09:10→19:36)
[2023-02-23 10:49] LABS: Glucose Point of Care 279 mg/dL (70-110)
--- NOTE | 2023-02-23 13:36 | PC.NURSE ---
urostomy bag leaking, changed by this nurse at 1330.
--- NOTE | 2023-02-23 15:56 | P.PN_ITS ---
Subjective Subjective: Patient was seen this morning, he sitting up in a chair, denies any chest pain, no abdominal pain, no nausea, vomiting, alert to person, to place, not to time continues to complain of poor appetite, Vitals/I&O/Wt Last Vital Signs Temp 97.9 F 02/23/23 11:51 Pulse 93 02/23/23 11:51 Resp 18 02/23/23 11:51 BP 137/65 02/23/23 11:51 Pulse Ox 98 02/23/23 11:51 O2 Del Method Nasal Cannula 02/23/23 08:00 O2 Flow Rate 3 02/23/23 08:00 02/23/23 02/23/23 02/23/23 06:59 14:59 22:59 Intake Total 165.75 / 405.367 694.633 / 694.633 Output Total 600 / 1350 150 / 150 Balance -434.25 / -944.633 544.633 / 544.633 Weight last 48 hrs Weight 54.459 kg Weight 54.476 kg Physical Exam Const: COMMON NORMALS: no acute distress ORIENTATION/CONSCIOUSNESS: Yes awake, Yes oriented to person and Yes oriented to place; not oriented to time Resp: COMMON NORMALS: normal respiratory effort, No retractions, No use of accessory muscles and clear to auscultation bilaterally AUSCULTATION: clear to auscultation bilaterally Cardio: COMMON NORMALS: regular rate, regular rhythm, S1 normal heart sound present and S2 normal heart sound present RATE: regular rate RHYTHM: regular rhythm HEART SOUNDS: S1 normal heart sound present and S2 normal heart sound present GI: COMMON NORMALS: Normal to inspection, nondistended, normoactive bowel sounds present, Soft to palpation and non-tender PALPATION: Yes Soft to palpation Extremity: COMMON NORMALS: no pedal edema Neuro: SENSORIUM/ORIENTATION: Yes oriented to person, Yes oriented to place and No oriented to time Data 02/23/23 04:38 02/23/23 04:38 Micro: Microbiology 02/18/23 13:02 Blood Culture - Final Blood NO GROWTH AFTER 5 DAYS 02/18/23 12:50 Blood Culture - Final Blood NO GROWTH AFTER 5 DAYS A&P Assessment and plan (1) Shortness of breath: - Secondary to pulmonary embolism seen on VQ scan -Stop heparin drip, switch to Eliquis -Also component of COPD exacerbation, switch to prednisone 40 mg daily -Given elevated CRP, concerns for respiratory tract infection doxycycline 100 twice daily -Monitor (2) FREEMAN (acute kidney injury): -Improving 1.6 -avoid fluids due to chf, elevated BNP (3) CHF (congestive heart failure): Chronic cardiomyopathy most recent echocardiogram from an outside facility with reduced ejection fraction of 20 to 25% after non-ST elevation, Type II [place] in [place] of this year which was medically managed. At the beginning of the year ejection fraction was 60%. Though he has an elevated BNP currently I suspect this is secondary to acute kidney injury. Clinically does not appear total body volume overloaded and in fact appears quite dry. Previous imaging studies have indicated evidence of pulmonary hypertension. Has not been taking recommended medication regimen for about 2 months. (4) Follicular lymphoma grade 3a: Completed radiation therapy in January of this year. Last chemotherapy was completed in July of this year. Was to be seen today at oncology but because of his shortness of breath and hypoxia was sent to the emergency room. Future plan of care regarding cancer not known at this time. 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 Also stopped taking carvedilol and isosorbide though continues to use as needed nitroglycerin sublingual. (10) Hyperlipidemia: Previously had been on statin but has not taken for a couple of months (11) S/P ileal conduit: Secondary to history of bladder cancer, has urinalysis consistent with urine specimen from conduit with some cellular material noted but with negative nitrites and leukocyte esterase and no recently notable change to urine output (12) Hypothyroidism: chronic diagnosis for which patient has been prescribed levothyroxine. He has not been taking it by report for a couple of months and has normal TSH today. (13) Right leg DVT: Currently on heparin drip (14) Pulmonary embolism: (15) COPD exacerbation: (16) Respiratory tract infection: (17) NSTEMI (non-ST elevated myocardial infarction): -Likely type II NSTEMI related to respiratory failure - (18) Protein calorie malnutrition: Severe protein calorie malnutrition, with physical deconditioning, with cancer cachexia ? Consult PT OT ? Consult dietary ? 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: (21) GI bleed: -will monitor hemoglobin, last hemoglobin 9.3, stable on heparin drip switch to Eliquis -iron studies show evidence of early iron deficiency anemia -monitor hydrodynamics -hemmocult stool -protonix, carafate - Plan Which to Eliquis, monitor hemoglobin, continue Ritalin, Attestations Medical Necessity Statement*: Patient requires hospitalization for DVT, PE, anemia and High MDM includes number and complexity of problems actively addressed during encounter, amount and/or complexity of data reviewed/ordered and described risk of complication, morbidity or mortality of management as doc umented Diagnoses Shortness of breath R06.02 FREEMAN (acute kidney injury) N17.9 CHF (congestive heart failure) I50.9 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 Protein calorie malnutrition E46 Physical deconditioning R53.81 Cancer cachexia R64 GI bleed K92.2
[2023-02-23 17:06] LABS: Glucose Point of Care 167 mg/dL (70-110)
[2023-02-23 20:39] LABS: Glucose Point of Care 156 mg/dL (70-110)
[2023-02-23] MEDS: latanoprost 0.005% Op Soln 2.5 mL Btl 1 DROP EYE-BOTH (20:39)
[2023-02-24] VITALS (12 sets, daily range): BP systolic 131–167; BP diastolic 67–83; PULSE 64–104; RESP 16–19; TEMP 36.6–37; O2SAT 95–100
[2023-02-24 05:16] LABS: Basophils % 0.4 %; Lymphocytes # 0.4 10^3/uL (0.8-4.8); Lymphocytes % 6.2 %; Mean Corpuscular Hemoglobin 33.2 pg (28.0-34.0); Mean Platelet Volume 10.1 fL (7.4-10.4); Monocytes # 0.7 10^3/uL (0.2-0.9); Monocytes % 11.4 %; Neutrophils # 4.19 10^3/uL (1.8-7.7); Neutrophils % 73.6 %; Nucleated Red Blood Cells % 0 %; Platelet Count 231 10^3/cmm (130-400); Red Blood Count 2.71 10^6/uL (4.1-5.3); Red Cell Distribution Width 13.6 % (12.1-15.1); White Blood Count 5.7 10^3/uL (4.0-10.0)
[2023-02-24 05:30] LABS: Alanine Aminotransferase < 5 U/L (0-41); Albumin Level 2.9 g/dL (3.5-5.2); Alkaline Phosphatase 57 U/L (40-130); Aspartate Amino Transferase 10 U/L (0-40); Blood Urea Nitrogen 46 mg/dL (8-23); Calcium 9.6 mg/dL (8.5-10.5); Carbon Dioxide 20 mmol/L (22-29); Chloride 112 mmol/L (98-107); Globulin 2.6 g/dL (1.3-4.6); Glucose 121 mg/dL (65-115); Magnesium 1.9 mg/dL (1.7-2.3); Osmolality Calculated 305 mOsm/kg (285-295); Phosphorus 1.9 mg/dL (2.5-4.5); Sodium 141 mmol/L (136-145); Total Bilirubin 0.2 mg/dL (0.15-1.2); Total Protein 5.5 g/dL (6.6-8.7)
[2023-02-24] MEDS: pantoprazole 40 mg SDV IVP ×2 (05:36→18:07)
[2023-02-24 05:45] LABS: Anion Gap 13.6 (5-19); Potassium 4.6 mmol/L (3.5-5.1)
[2023-02-24 05:52] LABS: Slide Review Slide Review Perform
[2023-02-24] MEDS: sucralfate 1 gm Tablet PO ×2 (05:59→17:52)
[2023-02-24] MEDS: oxyCODONE 5 mg IR Tab/Cap PO ×3 (05:59→21:59)
[2023-02-24 06:42] LABS: Glucose Point of Care 119 mg/dL (70-110)
[2023-02-24] MEDS: TRAMadol 50 mg Tablet PO ×2 (08:36→17:48)
[2023-02-24] MEDS: predniSONE 20 mg Tablet 40 MG PO (08:37)
[2023-02-24] MEDS: docusate sodium 100 mg Capsule PO (08:37)
[2023-02-24] MEDS: apixaban 5 mg Tablet 10 MG PO ×2 (08:37→21:59)
[2023-02-24] MEDS: doxycycline 100 mg Tablet PO ×2 (08:37→17:48)
[2023-02-24] MEDS: budesonide 0.5 mg/2 mL Neb INHALATION ×2 (08:37→19:41)
[2023-02-24] MEDS: aspirin 81 mg EC Tablet PO (08:37)
[2023-02-24] MEDS: magnesium lactate 84 mg Tablet PO ×2 (08:37→17:52)
[2023-02-24] MEDS: clopidogrel 75 mg Tablet PO (08:38)
[2023-02-24] MEDS: methylphenidate 10 mg Tablet 5 MG PO ×2 (08:38→17:48)
[2023-02-24] MEDS: insulin glargine 100 units/1 mL 8 UNIT SUBCUT ×2 (08:38→22:00)
--- NOTE | 2023-02-24 09:11 | PC.SOCIAL ---
IMM update IMM updated with patient and daughter. Verbalized an understanding. Copy pg 2 provided. Initialled, dated, timed, and placed in chart.
[2023-02-24] MEDS: polyethylene glycol 3350 Pkt 17 gm PO (10:43)
[2023-02-24] MEDS: ALPRAZolam 0.5 mg Tablet 0.25 MG PO (10:43)
--- NOTE | 2023-02-24 10:53 | PC.NURSE ---
pt having difficulty swallowing and often choking on liquids. Verbal order entered for speech eval.
[2023-02-24 11:54] LABS: Glucose Point of Care 334 mg/dL (70-110)
[2023-02-24] MEDS: insulin lispro 100 unit/1 mL SUBCUT ×2 (11:58→22:00)
--- NOTE | 2023-02-24 14:40 | PC.NURSE ---
pt seems more confused today, often hollering out and stating we all want to republican . Appetite is minimal at best. Charge nurse advised.
--- NOTE | 2023-02-24 15:01 | P.PN_ITS ---
Subjective Subjective: patient was seen this morning he is geeting up with physical therapy, alert to person, to place, not to time, complains of weakness and poor appetite does tell me he had chocolate milk Vitals/I&O/Wt Last Vital Signs Temp 97.9 F 02/24/23 12:00 Pulse 104 H 02/24/23 12:00 Resp 18 02/24/23 13:31 BP 162/83 02/24/23 12:00 Pulse Ox 99 02/24/23 12:00 O2 Del Method Room Air 02/24/23 12:00 O2 Flow Rate 3 02/23/23 08:00 02/24/23 02/24/23 02/24/23 06:59 14:59 22:59 Intake Total 480 / 480 Output Total 600 / 750 Balance -600 / 184.633 480 / 480 Weight last 48 hrs Weight 52.844 kg Weight 54.459 kg Physical Exam Const: COMMON NORMALS: no acute distress Resp: COMMON NORMALS: normal respiratory effort, No retractions, No use of accessory muscles and clear to auscultation bilaterally AUSCULTATION: clear to auscultation bilaterally Cardio: COMMON NORMALS: regular rate, regular rhythm, S1 normal heart sound present and S2 normal heart sound present RATE: regular rate RHYTHM: regular rhythm HEART SOUNDS: S1 normal heart sound present and S2 normal heart sound present GI: COMMON NORMALS: Normal to inspection, nondistended, normoactive bowel sounds present, Soft to palpation and non-tender PALPATION: Yes Soft to palpation Extremity: COMMON NORMALS: no pedal edema Psych: COMMON NORMALS: mental status grossly normal Data 02/24/23 04:40 02/24/23 04:40 Micro: Microbiology 02/18/23 13:02 Blood Culture - Final Blood NO GROWTH AFTER 5 DAYS 02/18/23 12:50 Blood Culture - Final Blood NO GROWTH AFTER 5 DAYS A&P Assessment and plan (1) Shortness of breath: - Secondary to pulmonary embolism seen on VQ scan -on Eliquis -Also component of COPD exacerbation, switch to prednisone 40 mg daily -Given elevated CRP, concerns for respiratory tract infection doxycycline 100 twice daily -Monitor (2) FREEMAN (acute kidney injury): -Improving 1.5 -avoid fluids due to chf, elevated BNP (3) CHF (congestive heart failure): Chronic cardiomyopathy most recent echocardiogram from an outside facility with reduced ejection fraction of 20 to 25% after non-ST elevation, Type II [place] in October of this year which was medically managed. At the beginning of the year ejection fraction was 60%. Though he has an elevated BNP currently I suspect this is secondary to acute kidney injury. Clinically does not appear total body volume overloaded and in fact appears quite dry. Previous imaging studies have indicated evidence of pulmonary hypertension. Has not been taking recommended medication regimen for about 2 months. (4) Follicular lymphoma grade 3a: Completed radiation therapy in January of this year. Last chemotherapy was comp leted in July of this year. Was to be seen today at oncology but because of his shortness of breath and hypoxia was sent to the emergency room. Future plan of care regarding cancer not known at this time. 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 Also stopped taking carvedilol and isosorbide though continues to use as needed nitroglycerin sublingual. (10) Hyperlipidemia: Previously had been on statin but has not taken for a couple of months (11) S/P ileal conduit: Secondary to history of bladder cancer, has urinalysis consistent with urine specimen from conduit with some cellular material noted but with negative nitrites and leukocyte esterase and no recently notable change to urine output (12) Hypothyroidism: chronic diagnosis for which patient has been prescribed levothyroxine. He has not been taking it by report for a couple of months and has normal TSH today. (13) Right leg DVT: Currently on eliquis (14) Pulmonary embolism: (15) COPD exacerbation: (16) Respiratory tract infection: (17) NSTEMI (non-ST elevated myocardial infarction): -Likely type II NSTEMI related to respiratory failure - (18) Protein calorie malnutrition: Severe protein calorie malnutrition, with physical deconditioning, with cancer cachexia ? Consult PT OT ? Consult dietary ? 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: (21) GI bleed: -will monitor hemoglobin, last hemoglobin 9.3, stable on heparin drip switch to Eliquis -iron studies show evidence of early iron deficiency anemia -monitor hydrodynamics -hemmocult stool -protonix, carafate - Plan Which to Eliquis, monitor hemoglobin, continue Ritalin, Attestations Medical Necessity Statement*: patient requires hospitalization for dvt, and pe Diagnoses Shortness of breath R06.02 FREEMAN (acute kidney injury) N17.9 CHF (congestive heart failure) I50.9 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 Protein calorie malnutrition E46 Physical deconditioning R53.81 Cancer cachexia R64 GI bleed K92.2
[2023-02-24 17:01] LABS: Glucose Point of Care 126 mg/dL (70-110)
[2023-02-24] MEDS: ipratropium-albuterol 3 mL Neb INHALATION (19:41)
[2023-02-24 21:26] LABS: Glucose Point of Care 196 mg/dL (70-110)
[2023-02-24] MEDS: latanoprost 0.005% Op Soln 2.5 mL Btl 1 DROP EYE-BOTH (22:01)
[2023-02-25] VITALS (9 sets, daily range): BP systolic 134–156; BP diastolic 68–80; PULSE 77–96; RESP 16–23; TEMP 36.6–37.2; O2SAT 98–100
[2023-02-25 05:43] LABS: Basophils % 0.2 %; Eosinophils % 0.2 %; Hematocrit 28.7 % (42.0-52.0); Lymphocytes # 0.4 10^3/uL (0.8-4.8); Mean Corpuscular HGB Conc 31.4 g/dL (30.0-36.0); Mean Corpuscular Hemoglobin 32.8 pg (28.0-34.0); Mean Corpuscular Volume 104.7 fl (80-94); Mean Platelet Volume 10.4 fL (7.4-10.4); Monocytes # 0.6 10^3/uL (0.2-0.9); Neutrophils # 4.35 10^3/uL (1.8-7.7); Neutrophils % 74.7 %; Nucleated Red Blood Cells % 0 %; Platelet Count 269 10^3/cmm (130-400); Red Blood Count 2.74 10^6/uL (4.1-5.3); Red Cell Distribution Width 13.7 % (12.1-15.1); White Blood Count 5.8 10^3/uL (4.0-10.0)
[2023-02-25 06:05] LABS: Alanine Aminotransferase < 5 U/L (0-41); Alkaline Phosphatase 53 U/L (40-130); Anion Gap 13.4 (5-19); Aspartate Amino Transferase 10 U/L (0-40); Blood Urea Nitrogen 44 mg/dL (8-23); Calcium 9.5 mg/dL (8.5-10.5); Carbon Dioxide 21 mmol/L (22-29); Chloride 109 mmol/L (98-107); Globulin 2.3 g/dL (1.3-4.6); Glucose 112 mg/dL (65-115); Magnesium 1.8 mg/dL (1.7-2.3); Osmolality Calculated 300 mOsm/kg (285-295); Phosphorus 2.3 mg/dL (2.5-4.5); Potassium 4.4 mmol/L (3.5-5.1); Sodium 139 mmol/L (136-145); Total Bilirubin 0.3 mg/dL (0.15-1.2); Total Protein 5.3 g/dL (6.6-8.7)
[2023-02-25] MEDS: pantoprazole 40 mg SDV IVP (06:07)
[2023-02-25 06:14] LABS: Slide Review Slide Review Perform
[2023-02-25 06:46] LABS: Glucose Point of Care 114 mg/dL (70-110)
[2023-02-25] MEDS: sucralfate 1 gm Tablet PO (08:35)
[2023-02-25] MEDS: apixaban 5 mg Tablet 10 MG PO (08:35)
[2023-02-25] MEDS: predniSONE 20 mg Tablet 40 MG PO (08:35)
[2023-02-25] MEDS: docusate sodium 100 mg Capsule PO (08:35)
[2023-02-25] MEDS: doxycycline 100 mg Tablet PO (08:35)
[2023-02-25] MEDS: magnesium lactate 84 mg Tablet PO (08:35)
[2023-02-25] MEDS: methylphenidate 10 mg Tablet 5 MG PO (08:36)
[2023-02-25] MEDS: clopidogrel 75 mg Tablet PO (08:36)
[2023-02-25] MEDS: aspirin 81 mg EC Tablet PO (08:36)
[2023-02-25] MEDS: insulin glargine 100 units/1 mL 8 UNIT SUBCUT (08:40)
[2023-02-25] MEDS: ipratropium-albuterol 3 mL Neb INHALATION (09:22)
[2023-02-25] MEDS: budesonide 0.5 mg/2 mL Neb INHALATION (09:22)
[2023-02-25 10:19] LABS: SARS Covid-2 Antigen negative (Negative)
[2023-02-25] MEDS: oxyCODONE 5 mg IR Tab/Cap PO (11:06)
--- NOTE | 2023-02-25 11:55 | PM.DCS ---
Discharge Providers Date of Admission: 02/19/23 17:05 Date of Discharge: February 25, 2023 Attending Provider at Admission: Juhi Trammell MD Attending Provider at Discharge: Johan Virk MD Primary Care Provider: Vidal Kwan Diagnoses at Discharge Discharge Diagnosis (1) Shortness of breath: Status: Acute (2) FREEMAN (acute kidney injury): Status: Acute (3) CHF (congestive heart failure): Status: Acute (4) Follicular lymphoma grade 3a: Status: Acute Permanent problem details: Grade 1 identified in ~2016, in 2021 found to be grade 3 involving colon, anterior chest wall and ribs, treated with chemo (Bendamustine/Rituxan, last does in Jul 2022) and radiation (5 fractions of radiation to the left chest wall from January 02, 2023 through January 09, 2023) (5) Depression: Status: Chronic (6) Cancer associated pain: Status: Chronic (7) Hypertension: Status: Chronic (8) Diabetes mellitus, type II: Status: Chronic (9) CAD (coronary artery disease): Status: Chronic (10) Hyperlipidemia: Status: Chronic (11) S/P ileal conduit: Status: Chronic (12) Hypothyroidism: Status: Chronic (13) Right leg DVT: Status: Acute (14) Pulmonary embolism: Status: Acute (15) COPD exacerbation: Status: Acute (16) Respiratory tract infection: Status: Acute (17) NSTEMI (non-ST elevated myocardial infarction): Status: Acute (18) Protein calorie malnutrition: Status: Inactive (19) Physical deconditioning: Status: Inactive (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 While there he was noted to be short of breath and hypoxic and was referred to the emergency room for further evaluation.? There was concern for possibility of pneumonia as he has been having increase in baseline productive cough lately.? Sometimes notes some specks of blood.? No reports of any fevers but he is often cold.? He has generally not been feeling well.? On arrival here his oxygen saturation on room air was within normal range but he was noted to be mildly tachycardic.? Family reported to ER provider that oxygen saturations were as low as 75% at 1 point today.? No known sick contacts.? Chest x-ray in the emergency room showed findings of pulmonary fibrosis and emphysema but no infiltrates or effusions noted.? White count was normal.? He empirically received Rocephin and IV fluid bolus.? Blood cultures were obtained.? White count came back unremarkable though with a low lymphocyte count which is not new for him.? Mr. Garcias has a known history of follicular lymphoma grade 3A that initially involved areas of the colon and later found to involve left chest wall and ribs.? Most recently he had been found to have recurrent disease in the left chest wall by biopsy in December of this year.? This is involved intercostal muscles and pleura centered around the third fourth and fifth ribs.? On a chest abdomen and pelvis CT in November of this year Mr. Garcias was also noted to have had a 7 mm subpleural nodule in the left lower lobe that was nonspecific in nature by description and could either be benign or a new metastatic site.? Evidence of pulmonary hypertension was seen.? He completed a course of radiation therapy in January.? He had previously undergone chemotherapy with Bendamustine/Rituxan with last dose in July 2022.? In addition to the white count, patient was found to have evidence of acute kidney injury, hypomagnesemia, hyperkalemia along with elevated BNP. ? He was subsequently given a dose of Lasix 40 mg IV, Kayexalate and replacement magnesium and request was made for admission.? In talking with him he has not been taking many of his usual chronically prescribed medications for couple of months.? The home medication list shown includes date last taken indicates of what he has and has not been taking regularly lately.? I am unsure of when he last took eplerenone.? He admits to not eating or drinking very much in total, states that he probably gets more water than anything.? His mouth has been very dry lately.? He has continued to lose weight.? He has noticed no change in his urine output but does describe noticing some bright red blood when he wipes after having a bowel movement.? Denies significant change in bowel movements otherwise.? His biggest complaint is pain in the chest wall.? He takes Tylenol at home for this but not anything else.? He gets some relief but short-lived.? He admits to being down with all that is happened to him over the last year and not wanting to take 70 medications as well as losing his a 55 years.? Does not want to take so many medications or hurt as much as he does.? 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 On review of available records from outside facilities as well as here it looks like he was started on Entresto in early November of this year after he was found to have an ejection fraction of 20 to 25% on echocardiogram performed at [facility].? He was hospitalized there with sepsis/pneumonia, non-ST elevation OR felt to be type II process with a peak troponin of around 2000, acute kidney injury and metabolic encephalopathy.? He had similar acute kidney injury prior to that hospital stay.? He had been on diuretic therapy in the form of spironolactone and torsemide in the past.? He only had the Entresto filled 1 time for 90-day supply. ? Sometime in December he quit taking most of the prescribed medications.? Since then he did complete a course of fluconazole followed by ciprofloxacin with last dose being taken on February 17.? Other home medicines that he is actually been taking include twice daily Pepcid, daily PPI, latanoprost eyedrops, sliding scale Levemir, Megace, and as needed nitroglycerin for chest pain.? He has NOT been taking allopurinol, spironolactone, Coreg, glimepiride, sodium bicarb tablets, Zofran, mirtazapine, magnesium, levothyroxine, isosorbide, folic acid, ferrous sulfate, aspirin, atorvastatin, citalopram, Plavix or cyproheptadine.? He takes Tylenol as needed for pain.? He continues to smoke sometimes but not near what he used to.? He does not drink any longer. Patient was admitted to [facility] for shortness of breath secondary to pulmonary embolism seen on VQ scan, right lower extremity DVT, managed with a heparin drip, due to concerns for anemia and slow GI bleed, hemoglobin remained stable, transition to Eliquis, no hemodynamic compromise, no bloody or black stools, discharged on Eliquis for DVT and PE. I will have assisted recheck patient's hemoglobin in 48 hours, hemoglobin discharge was 9.0. For his FREEMAN, improved with clinical monitoring, creatinine on discharge 1.4. For his severe protein calorie malnutrition, cancer cachexia, physical deconditioning, discharge on instructions to have protein shakes at least 2-3 times a day, discharged to long term facility for rehab. For his follicular lymphoma, please follow-up with Dr. Zhang. Discharged on Ritalin 5 mg twice daily for appetite stimulant, would avoid megestrol due to his recent DVT and PE. In terms of his cancer cachexia, severe deconditioning, recent DVT and PE, follicular lymphoma, I had extensive goals of care discussion with patient and family, my worry is is that he will have a high risk of hospitalizations, morbidity and mortality, I did strongly suggest hospice evaluation however patient and family declined, they want to see how he would do with rehab at long term facility. Physical Exam Const: COMMON NORMALS: no acute distress ORIENTATION/CONSCIOUSNESS: Yes awake, Yes oriented to person and Yes oriented to place; not oriented to time Resp: COMMON NORMALS: normal respiratory effort, No retractions, No use of accessory muscles and clear to auscultation bilaterally AUSCULTATION: clear to auscultation bilaterally Cardio: COMMON NORMALS: regular rate, regular rhythm, S1 normal heart sound present and S2 normal heart sound present RATE: regular rate RHYTHM: regular rhythm HEART SOUNDS: S1 normal heart sound present and S2 normal heart sound present GI: COMMON NORMALS: Normal to inspection, nondistended, normoactive bowel sounds present and non-tender Extremity: COMMON NORMALS: no pedal edema Neuro: SENSORIUM/ORIENTATION: Yes oriented to person, Yes oriented to place and No oriented to time Psych: COMMON NORMALS: mental status grossly normal Discharge Data Studies Completed and Pending Completed Studies During Hospitalization Category Date Time Status CT abdomen pelvis wo con [id number] Stat Cat Scan 02/21/23 12:[address] chest wo con [id number] Routine Cat Scan 02/19/23 17:06 Completed XR chest 1V portable [id number] Stat Exams 02/18/23 11:58 Completed NM pul vent and perfus* [id number] Routine Nuc Med 02/20/23 17:12 [place] [id number] Routine Ultrasound 02/19/23 08:38 Completed CV. echo complete* [id number] Routine Ultrasound 02/18/23 17:37 Completed US renal BI* [id number] Routine Ultrasound 02/19/23 08:42 Completed Pending at discharge Category Date Time Status Immunochemical Fecal OCB Routine Lab 02/18/23 17:37 Uncollected Immunochemical Fecal OCB Stat Lab 02/21/23 12:09 Ordered Occult Blood Stool [Immunochemical Fecal OCB] Routine Lab 02/21/23 08:44 Uncollected Radiology Impressions Chest X-Ray 02/18/23 11:58 IMPRESSION: No acute findings. Emphysema. Chest CT 02/19/23 17:06 IMPRESSION: 1. Coronary artery atherosclerotic calcifications. 2. Emphysematous changes. 3. Lingular lobe 2.5 cm suspected nodule, series 3, image 32, new compared to prior exam, consider correlation with CT with intravenous contrast to evaluate for distinction from the adjacent vessels. 4. Left lower lobe 2.3 cm nodule abutting the pleural surface, new compared to prior exam. Left lower lobe 11.3 mm pulmonary nodule, new compared to prior exam. Highly suspicious nodule(s). Consider non-emergent PET/CT, or tissue sampling.(Reference: Bartolo) 5. Left anterior chest wall again seen measuring up to at least 8.9 cm, similar to prior exam. Finding is potentially concerning for underlying malignancy. 6. Emphysematous changes with bilateral largely basilar honeycombing with interstitial fibrotic changes. 7. Cholelithiasis. REFERENCES: Bartolo Brasher, et al. Guidelines for Management of Incidental Pulmonary Nodules Detected on CT Images: From the Fleischner Society 2017. Radiology. 2017;284(1):228-243. Abdomen/Pelvis CT 02/21/23 12:06 IMPRESSION: No acute finding. Laboratory Results WBC 5.8 10^3/uL (4.0-10.0) 02/25/23 04:53 RBC 2.74 10^6/uL (4.1-5.3) L 02/25/23 04:53 Hgb 9.0 g/dL (11.7-16.6) L 02/25/23 04:53 Hct 28.7 % (42.0-52.0) L 02/25/23 04:53 MCV 104.7 fl (80-94) H 02/25/23 04:53 MCH 32.8 pg (28.0-34.0) 02/25/23 04:53 MCHC 31.4 g/dL (30.0-36.0) 02/25/23 04:53 RDW 13.7 % (12.1-15.1) 02/25/23 04:53 Plt Count 269 10^3/cmm (130-400) 02/25/23 04:53 MPV 10.4 fL (7.4-10.4) 02/25/23 04:53 Neut % (Auto) 74.7 % 02/25/23 04:53 Lymph % (Auto) 6.0 % 02/25/23 04:53 Josephine % (Auto) 11.0 % 02/25/23 04:53 Eos % (Auto) 0.2 % 02/25/23 04:53 Baso % (Auto) 0.2 % 02/25/23 04:53 Neut # (Auto) 4.35 10^3/uL (1.8-7.7) 02/25/23 04:53 Lymph # (Auto) 0.4 10^3/uL (0.8-4.8) L 02/25/23 04:53 Josephine # (Auto) 0.6 10^3/uL (0.2-0.9) 02/25/23 04:53 Eos # (Auto) 0.0 10^3/uL (0.0-0.8) 02/25/23 04:53 Baso # (Auto) 0.0 10^3/uL (0.0-0.1) 02/25/23 04:53 Nucleated RBC % (auto) 0 % 02/25/23 04:53 Total Counted 100 (0-100) 02/19/23 00:37 Atypical Lymphs % Not Reportable 02/19/23 00:37 Segmented Neutrophils 80 % 02/19/23 00:37 Abs Segm Neuts (Man) 5.0 10/cmm (1.6-7.1) 02/19/23 00:37 Band Neutrophils Not Reportable 02/19/23 00:37 Lymphocytes (Manual) 8 % 02/19/23 00:37 Monocytes (Manual) 9.0 % 02/19/23 00:37 Absolute Monocytes 0.6 10^3/cmm (0.1-0.6) 02/19/23 00:37 Eosinophils (Manual) 1 % 02/19/23 00:37 Absolute Eosinophils 0.0 10^3/cmm (0.0-0.7) 02/19/23 00:37 Basophils (Manual) 0.0 % 02/19/23 00:37 Absolute Basophils 0.0 10^3/cmm (0.0-0.2) 02/19/23 00:37 Metamyelocytes 2.0 % 02/19/23 00:37 Nucleated RBCs # 0.0 /100WBC 02/25/23 04:53 Hypersegmented Polys 2+ 02/19/23 00:37 Platelet Estimate Decreased (Normal) 02/19/23 00:37 PT 16.70 SECONDS (12.1-14.9) H 02/19/23 04:20 INR 1.31 (0.8-1.2) H 02/19/23 04:20 APTT 63.3 SECONDS (23.9-36.7) H 02/23/23 07:55 D-Dimer 6.68 ug/mIFEU (0-0.59) H 02/19/23 04:20 Specimen Type Art 02/18/23 12:18 Sample Site Lb 02/18/23 12:18 ABG pH 7.42 (7.35-7.45) 02/18/23 12:18 ABG pCO2 23.8 mmHg (35-45) L 02/18/23 12:18 ABG pO2 71.7 mmHg (80.0-100.0) L 02/18/23 12:18 ABG HCO3 15.6 mmol/L (22-26) L 02/18/23 12:18 ABG O2 Saturation 95.1 02/18/23 12:18 ABG Base Excess -7.2 mmol/L (-2.0-2.0) L 02/18/23 12:18 Darin Test N/a 02/18/23 12:18 A-a O2 Gradient 45.6 mmHg (5-10) H 02/18/23 12:18 Hematocrit 36.6 % (42-52) L 02/18/23 12:18 Hgb O2 Saturation 93.1 % (95-100) L 02/18/23 12:18 Carboxyhemoglobin 1.8 %THgb (0.4-20.1) 02/18/23 12:18 Methemoglobin 0.3 % (0.4-1.5) L 02/18/23 12:18 Total Hemoglobin 11.9 g/dL (14-18) L 02/18/23 12:18 Sodium 136.0 mmol/L (131-143) 02/18/23 12:18 Potassium 5.3 mmol/L (3.5-5.0) H 02/18/23 12:18 Glucose 282.0 mg/dL (70-115) H 02/18/23 12:18 Ionized Calcium 1.4 mmol/L (1.1-1.4) 02/18/23 12:18 O2 Delivery Device Room air 02/18/23 12:18 FiO2 21.0 % 02/18/23 12:18 Net Programmer ID [id number] 02/18/23 12:18 Sodium 139 mmol/L (136-145) 02/25/23 04:53 Potassium 4.4 mmol/L (3.5-5.1) 02/25/23 04:53 Chloride 109 mmol/L (98-107) H 02/25/23 04:53 Carbon Dioxide 21 mmol/L (22-29) L 02/25/23 04:53 Anion Gap 13.4 (5-19) 02/25/23 04:53 BUN 44 mg/dL (8-23) H 02/25/23 04:53 Creatinine 1.4 mg/dL (0.7-1.2) H 02/25/23 04:53 GFR Calculation Not Reportable 02/25/23 04:53 Glucose 112 mg/dL (65-115) 02/25/23 04:53 POC Glucose 114 mg/dL (70-110) H 02/25/23 06:40 Calculated Osmolality 300 mOsm/kg (285-295) H 02/25/23 04:53 Lactic Acid 2.0 mmol/L (0.5-2.2) 02/18/23 12:50 Uric Acid 6.8 mg/dL (3.4-7.0) 02/18/23 12:50 Calcium 9.5 mg/dL (8.5-10.5) 02/25/23 04:53 Phosphorus 2.3 mg/dL (2.5-4.5) L 02/25/23 04:53 Magnesium 1.8 mg/dL (1.7-2.3) 02/25/23 04:53 Iron 45 ug/dL (59-158) L 02/21/23 02:30 Ferritin 822 ng/mL (30-400) H 02/21/23 02:30 Total Bilirubin 0.3 mg/dL (0.15-1.2) 02/25/23 04:53 AST 10 U/L (0-40) 02/25/23 04:53 ALT < 5 U/L (0-41) 02/25/23 04:53 Alkaline Phosphatase 53 U/L (40-130) 02/25/23 04:53 Creatine Kinase 28 U/L (39-308) L 02/19/23 04:20 Troponin T Baseline 89 ng/L (0-15) H 02/18/23 18:45 Troponin T 120 Minute 87.17 ng/L (0-15) H 02/18/23 21:03 Delta Troponin T -1.83 ABS# (0-10) L 02/18/23 21:03 Troponin T Hi Sens 6Hr 91.44 ng/L (0-15) H 02/19/23 00:37 Troponin T Hi Sens 6Hr Delta 2.44 ng/L (0-12) 02/19/23 00:37 C-Reactive Protein 70.3 mg/L (0.0-4.9) H 02/22/23 04:09 NT-Pro-B Natriuret Pep 9786 pg/mL (0-450) H 02/18/23 12:50 Total Protein 5.3 g/dL (6.6-8.7) L 02/25/23 04:53 Albumin 3.0 g/dL (3.5-5.2) L 02/25/23 04:53 Globulin 2.3 g/dL (1.3-4.6) 02/25/23 04:53 Procalcitonin 0.16 ng/mL (0-0.5) 02/22/23 04:09 TSH 4.20 uIU/mL (0.27-4.20) 02/18/23 12:50 Urine Color Yellow (Yellow) 02/18/23 15:14 Urine Appearance Clear (CLEAR) 02/18/23 15:14 Urine pH 7 (5-7) 02/18/23 15:14 Ur Specific [place] 1.005 (1.005-1.030) 02/18/23 15:14 Urine Protein Neg (Negative) 02/18/23 15:14 Urine Glucose (UA) Norm (Normal) 02/18/23 15:14 Urine Ketones Negative (Negative) 02/18/23 15:14 Urine Blood 2+ (Negative) H 02/18/23 15:14 Urine Nitrate Negative (Negative) 02/18/23 15:14 Urine Bilirubin Neg (Negative) 02/18/23 15:14 Urine Urobilinogen Norm mg/dL (Negative) 02/18/23 15:14 Ur Leukocyte Esterase Negative (Negative) 02/18/23 15:14 Urine RBC 5-10 /hpf (0-2) H 02/18/23 15:14 Urine WBC 5-10 /hpf (0-5) H 02/18/23 15:14 Ur Squamous Epith Cells None /hpf (0-5) 02/18/23 15:14 Amorphous Sediment Not Reportable 02/18/23 15:14 Urine Bacteria 1+ /hpf (NONE) H 02/18/23 15:14 SARS-CoV-2 Ag (Rapid) negative (Negative) 02/25/23 09:46 Vitals Last Vital Signs Temp 97.8 F 02/25/23 08:00 Pulse 82 02/25/23 09:29 Resp 23 H 02/25/23 11:06 BP 156/75 02/25/23 08:00 Pulse Ox 98 02/25/23 09:22 O2 Del Method Nasal Cannula 02/25/23 09:22 O2 Flow Rate 1 02/25/23 09:22 Discharge Plan Discharge Patient Disposition: Xfer SNF Condition: Stable Prescriptions: New alprazolam 0.5 mg Tablet 0.25 mg PO BID PRN (Reason: Anxiety) 7 Days Qty: 14 0RF methylphenidate HCl 10 mg Tablet 5 mg PO BID 7 Days Qty: 7 0RF oxycodone 5 mg Tablet 5 mg PO Q6H PRN (Reason: Severe Pain) 7 Days Qty: 28 0RF docusate sodium 100 mg Capsule 100 mg PO BID 30 Days Qty: 60 0RF insulin lispro [Humalog U-100 Insulin] 100 unit/mL Solution See Rx Instructions .ROUTE .COMPLEX Qty: 10 0RF Rx Instructions: Inject, subcut, 3 times daily, after meals, based on sliding scale sucralfate 1 gram Tablet 1 g PO BIDWM 30 Days Qty: 60 0RF Eliquis DVT-PE Treat 30D Start 5 mg (74 tabs) tablets,dose pack See Rx Instructions .ROUTE .COMPLEX Qty: 74 0RF Rx Instructions: orally per package directions Continued ondansetron 4 mg tablet,disintegrating 4 mg PO Q8H PRN (Reason: Nausea And Vomiting) magnesium oxide 250 mg magnesium tablet 250 mg PO DAILY ferrous sulfate 325 mg (65 mg iron) tablet,delayed release (DR/EC) 325 mg PO DAILY latanoprost 0.005 % drops 1 drp ophthalmic (eye) BEDTIME acetaminophen 325 mg tablet 325 mg PO QID PRN (Reason: Pain) mirtazapine 7.5 mg tablet 7.5 mg PO DAILY atorvastatin 40 mg tablet 40 mg PO DAILY cyproheptadine 4 mg tablet 2 mg PO BEDTIME folic acid 1 mg tablet 1 mg PO DAILY citalopram 10 mg tablet 10 mg PO DAILY nitroglycerin [Nitrostat] 0.4 mg tablet, sublingual 0.4 mg sublingual Q5M PRN (Reason: Chest Pain) Rx Instructions: do not exceed 3 doses per episode clopidogrel [Plavix] 75 mg Tablet 75 mg PO DAILY levothyroxine 25 mcg Tablet 25 mcg PO DAILY Pepcid Complete 10-800-165 mg Tablet,Chewable 1 tab PO BID Changed pantoprazole 20 mg tablet,delayed release (DR/EC) 40 mg PO Q12H 30 Days Qty: 120 0RF Levemir FlexPen 100 unit/mL (3 mL) insulin pen 5 unit SUBCUT QAM Qty: 15 0RF Rx Instructions: 5 units subcutaneously; Discontinued ciprofloxacin HCl 500 mg tablet 500 mg PO BID Rx Instructions: for 5 days (rx filled 02/12/23) aspirin [Adult Low Dose Aspirin] 81 mg tablet,delayed release (DR/EC) 81 mg PO DAILY eplerenone 25 mg tablet 25 mg PO DAILY Qty: 90 3RF isosorbide mononitrate 60 mg Tablet Extended Release 24 Hr 60 mg PO DAILY megestrol 400 mg/10 mL (40 mg/mL) suspension 800 mg PO QAM Discharge Orders: Discharge Order (Routine); Ordered 02/25/23 Ordered By: Johan Virk Referrals: [facility] [Outside] Vidal Kwan [Primary Care Provider] - Roman Zhang MD [Hospitalist] - 2 weeks Discharge Diet: Cardiac Discharge Activity: Resume usual activity Patient Instructions: Opioid Safety Activity Restrictions/Additional Instructions: - Please use pain medication sparingly for pain -Please use alprazolam sparingly -I am discharging him on Eliquis for DVT and pulmonary embolism, he has had anemia, please check hemoglobin in 48 hours --Please monitor your blood sugars closely -Monitor your blood sugars 3 times daily as after meals -Please record your blood sugars, and a blood sugar log -For your NovoLog -Please inject blood sugar after meals based on sliding scale provided -Do not inject insulin if you do not eat as hypoglycemia kills -This is a NovoLog sliding scale -Insulin sliding ?fingerstick? Insulin ?141-180?0 units/sq 181-220?2 units/sq ?221-260?4 units/sq ?261-300 6 units/sq ?301-350?8 units/sq ?351-400 10 units/sq ?401-450?12 units/sq >450? 14units/sq -If your blood sugar is greater than 500 go to the emergency room -If your blood sugar is less than 60 or at anytime you feel lightheaded or dizzy or diaphoretic or have chest palpitations check your blood sugar, and eat a hard candy or drink orange juice and go immediately to the emergency room -Remember hypoglycemia kills, so if his blood sugar is less than 60 we have to increase it by taking in a sugary meal such as a hard candy or orange juice and go to the emergency room -If you have any questions please call us where here to help Discharge Attestations Time Spent in Discharge Care*: greater than 30 min Quality Metrics Clinical Quality Measures [ No reported AMI, CVA or VTE this stay] Coding Level of Care Code 41645 Total time (in minutes) for Discharge: 45 Diagnoses Shortness of breath R06.02 FREEMAN (acute kidney injury) N17.9 CHF (congestive heart failure) I50.9 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 Protein calorie malnutrition E46 Physical deconditioning R53.81 Cancer cachexia R64 GI bleed K92.2
[2023-02-25] MEDS: insulin lispro 100 unit/1 mL SUBCUT (12:19)
[2023-02-25 12:20] LABS: Glucose Point of Care 442 mg/dL (70-110)
== END 2023-02-25 14:34 | disposition skilled nursing facility (03) | DRG 280 ==
LOC: ER 14:46 → MEDSURG 15:39
PROVIDERS: Internal Medicine; Admitting Provider Hospitalist; Emergency Provider Family Medicine; PCP Family Medicine; Visit Provider Family Medicine
DX: I82.431 Acute embolism and thrombosis of right popliteal vein (principal); E43 Unspecified severe protein-calorie malnutrition; I21.A1 Myocardial infarction type 2; I26.99 Other pulmonary embolism without acute cor pulmonale; C82.58 Diffuse follicle center lymphoma, lymph nodes of multiple sites; N17.9 Acute kidney failure, unspecified; I50.22 Chronic systolic (congestive) heart failure; Z68.1 Body mass index [BMI] 19.9 or less, adult; K92.2 Gastrointestinal hemorrhage, unspecified; F33.1 Major depressive disorder, recurrent, moderate; I82.451 Acute embolism and thrombosis of right peroneal vein; J84.10 Pulmonary fibrosis, unspecified; J43.9 Emphysema, unspecified; I27.20 Pulmonary hypertension, unspecified; Z92.3 Personal history of irradiation; Z92.21 Personal history of antineoplastic chemotherapy; E83.42 Hypomagnesemia; E87.5 Hyperkalemia; T50.916A Underdosing of multiple unspecified drugs, medicaments and biological substances, initial encounter; Z91.128 Patient's intentional underdosing of medication regimen for other reason; G89.3 Neoplasm related pain (acute) (chronic); I11.0 Hypertensive heart disease with heart failure; F17.200 Nicotine dependence, unspecified, uncomplicated; Z79.02 Long term (current) use of antithrombotics/antiplatelets; I25.10 Atherosclerotic heart disease of native coronary artery without angina pectoris; Z95.5 Presence of coronary angioplasty implant and graft; Z95.1 Presence of aortocoronary bypass graft; D64.9 Anemia, unspecified; Z95.828 Presence of other vascular implants and grafts; F10.11 Alcohol abuse, in remission; Z90.49 Acquired absence of other specified parts of digestive tract; E03.9 Hypothyroidism, unspecified; E78.5 Hyperlipidemia, unspecified; I25.2 Old myocardial infarction; Z86.73 Personal history of transient ischemic attack (TIA), and cerebral infarction without residual deficits; Z90.79 Acquired absence of other genital organ(s); Z85.51 Personal history of malignant neoplasm of bladder; E11.9 Type 2 diabetes mellitus without complications
CPT/HCPCS: 36415; 36416; 36591; 36592; 36600; 71045; 71250; 74176; 76770; 78014; 80048; 80051; 80053; 81001; 82330; 82550; 82728; 82805; 82962; 83540; 83605; 83735; 83880; 84100; 84145; 84443; 84484; 84550; 85007; 85014; 85018; 85025; 85378; 85610; 85730; 86140; 87040; 87426; 92610; 93005; 93306; 93970; 94640; 96365; 96367; 96372; 96375; 97110; 97116; 97163; 97166; 97530; 99285; A9540; A9567; C9113; G0378; J0696; J1642; J1644; J1650; J1815; J1940; J2920; J3475; J3490; J7030; J7512; J7626; Q0162